=== PATIENT | female | born 1955 | race Caucasian/White ===

== ENCOUNTER → 2016-12-28 | Outpatient (CLI) | payer OTHER ==
--- NOTE | 2016-12-31 07:24 | MM ---
Reason for exam: screening (asymptomatic). Last mammogram was performed 2 years and 3 months ago. History: Patient is postmenopausal and is nulliparous. Benign excisional biopsy of the left breast, August 27, 2000. Excisional biopsy of the right breast. Took hormonal contraceptives for 11 years beginning at age 19. Physical Findings: A clinical breast exam by your physician is recommended on an annual basis and results should be correlated with mammographic findings. MG 3D Screening Mammo W/Cad Bilateral CC and MLO view(s) were taken. Prior study comparison: October 06, 2014, right breast MG diagnostic mammo RT w CAD. March 26, 2014, right breast MG work up mamm w CAD RT. The breast tissue is heterogeneously dense. This may lower the sensitivity of mammography. Finding: There is a questionable 16 mm equal density (isodense), lobulated mass located 3 cm from the nipple in the 12 o'clock position of the left breast. New finding since October 06, 2014 and March 26, 2014. ASSESSMENT: Incomplete: need additional imaging evaluation, BI-RAD 0 RECOMMENDATION: Ultrasound of the left breast. [facility] will attempt to contact patient to return for ultrasound.
== END | disposition home or self-care (01) ==
LOC: RADMAMWWP 09:07
PROVIDERS: ATTEND Obstetrics & Gynecology
DX: Z12.31 Encounter for screening mammogram for malignant neoplasm of breast (principal)
CPT/HCPCS: 77063; G0202

== ENCOUNTER → 2017-01-10 | Outpatient (CLI) | payer OTHER ==
--- NOTE | 2017-01-10 12:15 | USB ---
Reason for exam: additional evaluation requested from abnormal screening. History: Patient is postmenopausal and is nulliparous. Benign excisional biopsy of the left breast, August 27, 2000. Excisional biopsy of the right breast. Took hormonal contraceptives for 11 years beginning at age 19. Physical Findings: Nurse did not find any significant physical abnormalities on exam. US Breast Workup Limited LT Left breast ultrasound demonstrates no cystic or solid lesion seen. Possible scar tissue at palpable consistent with previousl surgery. These results were verbally communicated with the patient and result sheet given to the patient on 01/10/17. ASSESSMENT: Probably benign, BI-RAD 3 RECOMMENDATION: Follow-up diagnostic mammogram and ultrasound of the left breast in 6 months.
== END | disposition home or self-care (01) ==
LOC: RADUSWWP 09:30
PROVIDERS: ATTEND Obstetrics & Gynecology
DX: R92.8 Other abnormal and inconclusive findings on diagnostic imaging of breast (principal)

== ENCOUNTER → 2017-08-19 | Outpatient (CLI) | payer OTHER ==
--- NOTE | 2017-08-19 10:32 | MM ---
Reason for exam: follow-up at short interval from prior study. Last mammogram was performed 8 months ago. History: Patient is postmenopausal and is nulliparous. Benign excisional biopsy of the left breast, August 27, 2000. Excisional biopsy of the right breast. Took hormonal contraceptives for 11 years beginning at age 19. Physical Findings: Nurse did not find any significant physical abnormalities on exam. MG 3D Diag Mammo W/Cad LT CC and MLO view(s) were taken of the left breast. Prior study comparison: December 28, 2016, bilateral MG 3d screening mammo w/cad. October 06, 2014, right breast MG diagnostic mammo RT w CAD. The breast tissue is heterogeneously dense. This may lower the sensitivity of mammography. There is no discrete abnormality including area of concern. Stable post operative distortion left breast. These results were verbally communicated with the patient and result sheet given to the patient on 08/19/17. ASSESSMENT: Incomplete: need additional imaging evaluation, BI-RAD 0 RECOMMENDATION: Ultrasound of the left breast.
--- NOTE | 2017-08-19 10:34 | USB ---
Reason for exam: follow-up at short interval from prior study. History: Patient is postmenopausal and is nulliparous. Benign excisional biopsy of the left breast, August 27, 2000. Excisional biopsy of the right breast. Took hormonal contraceptives for 11 years beginning at age 19. US Breast LT Left breast ultrasound includes all four quadrants, the retroareolar region and axilla. Finding demonstrates a 5 x 2 x 3mm oval lesion too small to characterize at 2 o'clock. These results were verbally communicated with the patient and result sheet given to the patient on 08/19/17. ASSESSMENT: Benign, BI-RAD 2 RECOMMENDATION: Return to routine screening mammogram schedule for both breasts. Back on schedule.
== END | disposition home or self-care (01) ==
LOC: RADMAMWWP 08:15
PROVIDERS: ATTEND Obstetrics & Gynecology
DX: R92.2 Inconclusive mammogram (principal); L98.9 Disorder of the skin and subcutaneous tissue, unspecified
CPT/HCPCS: 77065; 76641; G0279

== ENCOUNTER → 2018-04-29 | Outpatient (CLI) | payer OTHER ==
--- NOTE | 2018-05-01 09:16 | MM ---
Reason for exam: screening (asymptomatic). Last mammogram was performed 8 months ago. History: Patient is postmenopausal and is nulliparous. Benign excisional biopsy of the left breast, August 27, 2000. Excisional biopsy of the right breast. Took hormonal contraceptives for 11 years beginning at age 19. Physical Findings: A clinical breast exam by your physician is recommended on an annual basis and results should be correlated with mammographic findings. MG 3D Screening Mammo W/Cad Bilateral CC and MLO view(s) were taken. Prior study comparison: August 19, 2017, left breast MG 3d diag mammo w/cad LT. December 28, 2016, bilateral MG 3d screening mammo w/cad. The breast tissue is heterogeneously dense. This may lower the sensitivity of mammography. Stable calcifications. No significant changes when compared with prior studies. ASSESSMENT: Benign, BI-RAD 2 RECOMMENDATION: Routine screening mammogram of both breasts in 1 year.
== END | disposition home or self-care (01) ==
LOC: RADMAMWWP 10:04
PROVIDERS: ATTEND Obstetrics & Gynecology
DX: Z12.31 Encounter for screening mammogram for malignant neoplasm of breast (principal)
CPT/HCPCS: 77063; 77067

== ENCOUNTER → 2019-05-25 | Outpatient (CLI) | payer OTHER ==
--- NOTE | 2019-05-27 09:17 | MM ---
Reason for exam: screening (asymptomatic). Last mammogram was performed 1 year and 1 month ago. History: Patient is postmenopausal and is nulliparous. Benign excisional biopsy of the left breast, August 27, 2000. Excisional biopsy of the right breast. Took hormonal contraceptives for 11 years beginning at age 19. Physical Findings: A clinical breast exam by your physician is recommended on an annual basis and results should be correlated with mammographic findings. MG 3D Screening Mammo W/Cad Bilateral CC and MLO view(s) were taken. Prior study comparison: April 29, 2018, bilateral MG 3d screening mammo w/cad. August 19, 2017, left breast MG 3d diag mammo w/cad LT. There is chronic nodularity in the left breast inferiorly. Nodular asymmetric density lateral posterior left breast is more defined. Questionable subtle distortion 11-12 o'clock right breast. ASSESSMENT: Incomplete: need additional imaging evaluation, BI-RAD 0 RECOMMENDATION: Special view mammogram of both breasts. (3D) If lesion persists on supplemental views, image directed ultrasound is recommended. [facility] will attempt to contact patient to return for supplemental views and ultrasound if indicated.
== END | disposition home or self-care (01) ==
LOC: RADMAMWWP 13:47
PROVIDERS: ATTEND Obstetrics & Gynecology
DX: Z12.31 Encounter for screening mammogram for malignant neoplasm of breast (principal)
CPT/HCPCS: 77063; 77067

== ENCOUNTER → 2019-06-04 | Outpatient (CLI) | payer OTHER ==
--- NOTE | 2019-06-05 07:58 | MM ---
Reason for exam: additional evaluation requested from abnormal screening. Last mammogram was performed less than 1 month ago. History: Patient is postmenopausal and is nulliparous. Benign excisional biopsy of the left breast, August 27, 2000. Excisional biopsy of the right breast. Took hormonal contraceptives for 11 years beginning at age 19. Physical Findings: Nurse did not find any significant physical abnormalities on exam. MG 3D Work Up W/Cad FLACO Bilateral spot compression CC and LM view(s) were taken. Spot compression MLO view(s) were taken of the right breast. Prior study comparison: May 25, 2019, bilateral MG 3d screening mammo w/cad. April 29, 2018, bilateral MG 3d screening mammo w/cad. The breast tissue is heterogeneously dense. This may lower the sensitivity of mammography. Post excisional changes on the left retroareolar and likely also upper outer quadrant at posterior depth 12 o'clock, precautionary ultrasound. 6mm area of architectural distortion in right upper outer quadrant 6cm from nipple, persists on additional views. These results were verbally communicated with the patient and result sheet given to the patient on 06/04/19. ASSESSMENT: Incomplete: need additional imaging evaluation, BI-RAD 0 RECOMMENDATION: Ultrasound of both breasts. (both upper outer quadant)
--- NOTE | 2019-06-05 08:02 | USB ---
Reason for exam: additional evaluation requested from abnormal screening. History: Patient is postmenopausal and is nulliparous. Benign excisional biopsy of the left breast, August 27, 2000. Excisional biopsy of the right breast. Took hormonal contraceptives for 11 years beginning at age 19. US Breast Workup Limited FLACO Left limited breast ultrasound including focal area of concern, retroareolar and axilla demonstrates a 4 x 3mm echogenic area within duct at the posterior nipple, ultrasound biopsy recommended. Right limited breast ultrasound including focal area of concern, retroareolar and axilla demonstrates no cystic or solid lesion seen. On screening right 3D CC 46/80 on review there are two areas of distortion 1.6cm apart. Stereotactic core biopsy of more posterior recomended. ML diagnostic . These results were verbally communicated with the patient and result sheet given to the patient on 06/04/19. ASSESSMENT: Suspicious, BI-RAD 4 RECOMMENDATION: Ultrasound core biopsy of the left breast. Stereotactic core biopsy of the right breast. Called Dr. Lovett's office with mammographic findings and has scheduled an appointment for the patient for 06/11/19 at 4:[address] Caldwell. PRELIMINARY REPORT CALLED AND FAXED TO DR. CALDWELL ON 06/04/19.
== END | disposition home or self-care (01) ==
LOC: RADMAMWWP 08:46
PROVIDERS: ATTEND Obstetrics & Gynecology
DX: R92.8 Other abnormal and inconclusive findings on diagnostic imaging of breast (principal)
CPT/HCPCS: 77062; 77066

== ENCOUNTER → 2019-06-11 | Outpatient (CLI) | payer OTHER ==
[2019-06-11 17:04] VITALS: BP 165/97; PULSE 87; RESP 18; TEMP 98.3; BMI 28.8
--- NOTE | 2019-06-11 17:26 | P.GSHP ---
History of Present Illness H&P Date: 06/11/19 Chief Complaint: Abnormal mammogram and ultrasound Maria Eugenia is being seen in consultation today for Dr. Nieves Gonzales. This is for bilateral abnormal mammograms and an abnormal right breast ultrasound. A 64-year-old white female who presents for breast evaluation. She underwent a bilateral screening mammogram on [id number]. This was felt to be incomplete and bilateral diagnostic mammograms were recommended. Bilateral [place] [id number] and these were felt to be incomplete and bilateral ultrasounds were recommended. On ultrasound she was noted to have the following Right breast: Focal area of concern retroareolar and axilla demonstrated no cy stic or solid lesion. On review there were 2 areas of distortion 1.6 cm apart a stereotactic core biopsy of the more posterior lesion was recommended. It was felt that a 3-D stereo biopsy should be performed and this is scheduled at [facility] July 04. The left breast: 4 x 3 mm echogenic area within a duct at the posterior nipple ultrasound biopsy recommended this is scheduled for [facility] on the same date July 04. The patient does not feel anything of concern in her breast. She has no complaints of pain masses nipple discharge or skin changes. In 1991 an open biopsy was done of the right breast. This was benign. 2000 open biopsy of the left breast. 2003 left breast of left breast. All benign. Family History: father: Esophageal cancer Hormonal History: menarche: 13 G2Ab2, no children (tubal at 30) menopause: 43 BCP: 15 years hormones: none Surgical history: 1. Tubal ligation 2. Bunionectomy Medical history: 1.varicose veins Social History: smoke: none alcohol: wine daily drugs: none - Constitutional Constitutional: Denies chills, Denies fever - EENT Eyes: denies blurred vision, denies pain Ears: bilateral: tinnitus, deny: decreased hearing Ears, nose, mouth and throat: Denies headache, Denies sore throat - Breasts Breasts: bilateral: as per HPI - Cardiovascular Cardiovascular: Reports high blood pressure - Respiratory Respiratory: Denies cough, Denies 7 - Gastrointestinal Gastrointestinal: Denies abdominal pain, Denies diarrhea, Denies nausea, Denies vomiting - Genitourinary (Female) Genitourinary: Denies dysuria, Denies hematuria - Menstruation Menstruation: Reports postmenopausal - Musculoskeletal Comment: arthritis - Integumentary Integumentary: Denies pruritus, Denies rash - Neurological Neurological: Denies numbness, Denies weakness - Psychiatric Psychiatric: Denies anxiety, Denies depression - Endocrine Endocrine: Denies fatigue, Denies weight change - Hematologic/Lymphatic Comment: none - Allergic/Immunologic Allergic/Immunologic: Reports seasonal allergies Past Medical History History of Any Multi-Drug Resistant Organisms: None Reported Smoking Status: Former smoker Medications and Allergies Home Medications Medication Instructions Recorded Confirmed Type Cholecalciferol (Vitamin D3) 2,000 unit PO DAILY 06/11/19 06/11/19 History [Vitamin D3] Famotidine 40 mg PO DAILY 06/11/19 06/11/19 History Gabapentin [Neurontin] 300 mg PO TID 06/11/19 06/11/19 History Levothyroxine Sodium [Synthroid] 75 mcg PO DAILY 06/11/19 06/11/19 History Loratadine [Claritin] 10 mg PO DAILY 06/11/19 06/11/19 History Metoprolol Tartrate [Lopressor] 100 mg PO BID 06/11/19 06/11/19 History Milk Thistle 150 mg PO DAILY 06/11/19 06/11/19 History [place]-3 Fatty Acids [[place]-3] 1,000 mg PO DAILY 06/11/19 06/11/19 History Vitamin B Complex 1 each PO DAILY 06/11/19 06/11/19 History Vitamin E 1,000 unit PO DAILY 06/11/19 06/11/19 History traMADol HCL [Ultram] 50 mg PO Q4-6H 06/11/19 06/11/19 History Allergies Allergy/AdvReac Type Severity Reaction Status Date / Time No Known Allergies Allergy Verified 06/11/19 17:04 Surgical - Exam Vital Signs Temp Pulse Resp BP Pulse Ox 98.3 F 87 18 165/97 97 06/11/19 17:01 06/11/19 17:01 06/11/19 17:01 06/11/19 17:01 06/11/19 17:01 - General well developed, well nourished, no distress - Eyes normal ocular movement - ENT no hearing loss, no congestion - Neck no masses, trachea midline - Respiratory normal expansion, normal respiratory effort, clear to auscultation - Cardiovascular Rhythm: regular Heart Sounds: normal: S1, S2 - Abdomen normal bowel sounds Abdomen: soft, non tender, no guarding, no rigid, no rebound - Integumentary no rash - Neurologic no disoriented, no combative - Musculoskeletal normal gait - Psychiatric oriented to time, oriented to person, oriented to place, speech is normal, memory intact Breast examination: Right breast: Multiple positional exam no dominant masses or nodules of concern Right axilla: No adenopathy of concern Left breast: Well-healed scar from prior surgery no dominant masses or nodules of concern Left axilla: No adenopathy of concern Bra: 40DD ptosi grade2/3 Results Mammogram and ultrasound results reviewed Assessment and Plan Assessment: Impression: 1. Abnormal bilateral mammogram 2. Abnormal right breast ultrasound 3. Fibrocystic breast changes 4. Family history of cancer 5. varicose veins 6. HTN Plan 1. ultrasound core biopsy right breast 2. Stereotactic core biopsy left breast 1 possibly 2 spots 3. Medical management of medical conditions 4. Follow-up after core biopsies performed We discussed risks and benefits of the procedure. We've also discussed stopping in the aspirin and aspirin products vitamin E or mated 3 Fish oils. The patient understands and the procedure has been scheduled for the near future. Time 25 minutes, 50% discussion. CC: Dr. Gonzales
== END ==
LOC: WWCWWP 15:47
PROVIDERS: ATTEND Surgery
DX: Z53.9 Procedure and treatment not carried out, unspecified reason (principal)

== ENCOUNTER → 2019-07-10 | Outpatient (CLI) | payer OTHER ==
[2019-07-10 07:43] VITALS: BP 134/82; PULSE 66; RESP 18; TEMP 98
--- NOTE | 2019-07-10 09:10 | P.PN ---
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 She underwent a right breast stereotactic core biopsy of 2 areas and [id number]. She underwent an ultrasound-guided core biopsy of the left breast on the same day. The breast stereotactic core biopsy revealed in the 11 to 12 o'clock position in the posterior region ductal carcinoma in situ, intermediate interposition invasive ductal carcinoma. The radiograph was reviewed with Dr. Pierce and it is felt that the area of concern is between 1-2 cm in size. The left breast retroareolar core biopsy revealed atypical ductal hyperplasia. The patient has no complaints related to the biopsy procedure. The patient is here with her for discussion. Objective - Vital Signs Vital signs: Vital Signs Temp 98.0 F 07/10/19 07:38 Pulse 66 07/10/19 07:38 Resp 18 07/10/19 07:38 BP 134/82 07/10/19 07:38 Pulse Ox 97 07/10/19 07:38 Intake & Output 07/09/19 07/10/19 07/10/19 18:59 06:59 18:59 Weight 86.183 kg - Exam BMI 28.1 - Constitutional General appearance: Present: average body habitus - EENT Eyes: Present: EOMI ENT: Present: hearing grossly normal - Neck Neck: Present: normal ROM - Respiratory Respiratory: bilateral: CTA - Cardiovascular Rhythm: regular Heart sounds: normal: S1, S2 - Integumentary Integumentary Comment(s): Mild ecchymosis right breast at core biopsy site, no evidence of infection or hematoma Left breast core biopsy site no evidence of infection or hematoma - Musculoskeletal Musculoskeletal: Present: gait normal - Psychiatric Psychiatric: Present: A&O x's 3, appropriate affect, intact judgment & insight Assessment and Plan Assessment: Impression: 1. Right breast core biopsy of 2 sites stereotactic core biopsy posterior position ductal carcinoma in situ, anterior position invasive ductal carcinoma 2. Left breast core biopsy atypia retroareolar region 3. Family history father esophageal cancer 4. History of hypertension At had a long discussion with the patient and her regarding treatment options. The lesion in the right breast appears to be less than 2 cm in size and she would be a good candidate for a lumpectomy with radiation therapy. Options of mastectomy plus or minus reconstruction were also discussed. We have also discussed sentinel node biopsy and possible axillary node dissection. After discussion they wish to proceed with a lumpectomy, sentinel node biopsy, possible axillary node dissection. We have discussed using an onco plastic approach and most likely this will be done via an eccentric mastopexy. We discussed that there will be some asymmetry between the breasts. She will also need a left breast needle local excisional biopsy of the area of atypia. The right breast will have additional changes after radiation therapy and a symmetry procedure on the contralateral side would be delayed until this was don e. Plan: 1. Needle localization lumpectomy right breast with possible tissue transfer, sentinel node biopsy, possible axillary node dissection 2. Needle localization lumpectomy left breast area of atypia 3. Presentation of case at tumor board 4. Preoperative medical clearance Approximately 60 minutes spent in this encounter, greater than 50% planning and counseling. Cc: Dr. Piper
== END | disposition home or self-care (01) ==
LOC: WWCWWP 07:17
PROVIDERS: ATTEND Surgery
DX: Z53.9 Procedure and treatment not carried out, unspecified reason (principal)

== ENCOUNTER 2019-08-12 08:47 | Day surgery (SDC) | payer OTHER ==
[2019-08-06 11:00] VITALS: BMI 28.0
[~2019-08-12 08:47] MED LIST: DEXAMETHASONE SOD PHOSPHATE 10 MG/ML 1 ML VIAL IV ONE; HEPARIN SODIUM,PORCINE 5,000 UNIT/ML 1 ML VIAL SQ ONE; LACTATED RINGERS 1,000 ML IV SCH; LIDOCAINE 1% 20 ML VIAL (10MG/ML) FOR IV START INTRADERMA PRN; ONDANSETRON 4 MG/2 ML VIAL IVP ONE; Pre Op ABX Message 1 EACH MISC MISCELLANE ONE
[2019-08-12] MEDS ORDERED: LIDOCAINE 1% INJ 10MG/ML (20 ML MDV) SQ ONE ×2 (10:25→12:21)
[2019-08-12] MEDS ORDERED: HYDROmorphone (PF) 1 MG/ML ONE (11:34)
[2019-08-12] MEDS ORDERED: PROPOFOL 10 MG/ML 20 ML VIAL IV ONE (11:34)
[2019-08-12] MEDS ORDERED: LIDOCAINE 1% INJ 10MG/ML (20 ML MDV) ONE (11:34)
[2019-08-12] MEDS ORDERED: SUCCINYLCHOLINE CHLORIDE 100 MG/5 ML SYR IV ONE (11:34)
[2019-08-12] MEDS ORDERED: MIDAZOLAM 2 MG/2 ML VIAL ONE (11:34)
[2019-08-12] MEDS ORDERED: ePHEDrine SULFATE/0.9% NACL/PF 50 MG/5 ML SYRINGE IV ONE (11:34)
[2019-08-12] MEDS ORDERED: fentaNYL (PF) 50 MCG/ML 2 ML AMP ONE (11:34)
[2019-08-12] MEDS ORDERED: SODIUM CHLORIDE 0.9% 100 ML with ceFAZolin 2,000 MG IV ONE ×2 (12:01)
[2019-08-12] MEDS ORDERED: LACTATED RINGERS 1,000 ML IV ONE (13:08)
--- NOTE | 2019-08-12 14:23 | MM ---
EXAMINATION TYPE: MG pre op needle loc LT DATE OF EXAM: 08/12/2019 COMPARISON: Mammogram 07/02/2019 CLINICAL HISTORY: DCIS and invasive carcinoma right breast, atypical biopsy results left breast TECHNIQUE: Needle localization with wire placement and surgical excision of area of concern of the bilateral breasts FINDINGS: The procedure of needle localization with wire placement and than surgical excision was explained to the patient. Benefits, alternatives, and risks were discussed. An informed consent was then obtained. A timeout was performed. The shortest pathway for procedure was chosen. Shortest pathway was lateral approach. The overlying skin was prepped in usual sterile fashion. 1% Lidocaine was used as anesthetic into the skin and subcutaneous tissue up to the level of area of concern. A 7 cm needle was used. It was placed via a lateral approach under mammographic guidance. Subsequent 90 degrees mammogram show the needle to be in satisfactory position relative to the targeted area. At this point, wire was placed and the needle was withdrawn. The wire was fixed to patient's skin. Images were marked for surgeon. The shortest pathway for procedure was chosen. Shortest pathway was lateral approach. The overlying skin was prepped in usual sterile fashion. 1% Lidocaine was used as anesthetic into the skin and subcutaneous tissue up to the level of areas of concern. A 7 cm needle was used for the more anterior inferior marker and 9 cm needle was used for the more posterior superior marker. These were placed via a lateral approach under mammographic guidance. Subsequent 90 degrees mammogram show the needles to be in satisfactory position relative to the targeted areas. At this point, wire was placed and the needles were withdrawn. The wires were fixed to patient's skin. Images were marked for surgeon. Images were reviewed with the surgeon prior to surgery in person. The patient subsequently had sentinel node injection. The patient tolerated the procedures well without any immediate complication. The patient was taken to presurgical holding and then to surgery for surgical excision. Specimen: Left breast specimen is obtained. The surgical wire and clip are within the specimen. Specimen: Right breast specimen is obtained. Surgical wires and clips are within the specimen. IMPRESSION: 1. Surgical biopsy left breast. 2. Lumpectomy, 2 sites right breast. Recommendations: 1. Recommendations are pending pathology results. Pathology Results: Malignant A. RIGHT BREAST/AXILLA, SENTINEL LYMPH NODE, BIOPSY: One lymph node negative for metastatic adenocarcinoma. Node is examined by routine H+E as well as appropriately controlled immunohistochemical stains for cytokeratin 7 and epithelial membrane antigen. B. RIGHT BREAST/AXILLA LYMPH NODE, "LYMPH NODE DISSECTION": Benign fibroadipose tissue, negative for lymph node. C. RIGHT BREAST TISSUE, BIOPSY: Fibrocystic spectrum changes and sclerosing adenosis. Negative for invasive or in situ adenocarcinoma. D. RIGHT BREAST MASS, NEEDLE LOCALIZATION MAMMOGRAPHICALLY ORIENTED LUMPECTOMY: Focal infiltrating moderately differentiated adenocarcinoma about 3 mm in greatest dimension and Grade 2 duct carcinoma in situ with focal comedo form necrosis measuring about 15 x 9 x 6 mm. Black inked superior margin is about 1 mm away from DCIS, other margins - negative for involvement by adenocarcinoma, see note. E. LEFT BREAST, MAMMOGRAPHICALLY ORIENTED BIOPSY: Focal atypical duct hyperplasia. Lesion does not contact inked margins. Recommendation Surgical consult MTDD
--- NOTE | 2019-08-12 14:25 | NM ---
EXAMINATION TYPE: NM sentinel node injection DATE OF EXAM: 08/12/2019 COMPARISON: NONE INDICATION: Abnormal mammogram. Informed consent was obtained. A timeout was performed. The area around the right nipple was cleansed with alcohol. In single subdermal injection, a total o f 515 uCi Technetium 99m Lymphoseek was injected. The patient tolerated the procedure very well. IMPRESSIONS: 1. Successful injection for sentinel node evaluation.
--- NOTE | 2019-08-12 14:58 | P.NAPBC ---
NAPBC Queries - NAPBC Queries Was patient's case review presented at [facility] tumor board? If no, comment.: Yes Was patient's pathology reviewed at [facility]? If no, comment.: Yes Was breast conservation surgery offered? If no, comment.: Yes Was sentinel node biopsy offered? If no, comment.: Yes Was diagnosis confirmed by percutaneous core biopsy? If no, comment.: Yes Is patient mastectomy patient?: No Was a preop referral to reconstructive surgeon offered?: No (not a mastectomy patient) Clinical Stage: stage 1A
--- NOTE | 2019-08-12 15:12 | P.OP ---
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, and the second area invasive ductal carcinoma Postoperative Diagnosis: same Procedure(s) Performed: Left breast needle local excisional biopsy Right breast sentinel node biopsy Right breast needle local times two lumpectomy via donut mastopexy with adjacent tissue transfer Anesthesia: ANGEL Surgeon: Clarissa Caldwell Estimated Blood Loss (ml): 5 IV fluids (ml): 1,000 Pathology: other (breast tissue right and left breast, sentinal node biopsy) Condition: stable Disposition: same day Indications for Procedure: Left breast core biopsy atypia, right breast core biopsy 2 DCIS and invasive ductal carcinoma Operative Findings: Dense breast tissue Description of Procedure: the patient is a 64-year-old white female who Mammographic evaluation of the breast was noted to have an area in both rest which required biopsy. In the left breast core biopsy revealed atypia. In the right breast 2 areas of concern were identified when revealed ductal carcinoma in situ and the second invasive ductal carcinoma. The 2 areas in the right breast with approximately 1.6 cm apart. Patient was given risks and benefits of surgery and chose to have a right lumpectomy via donor mastopexy and a left needle local excisional biopsy. The patient was taken to the operating room following needle localization of the areas of concern in each breast. Additionally radioactive substance was injected in the right periareolar area such that the sentinel node biopsy could be performed on the right. In the operative suite and induction of general anesthesia was initiated. Following this the neoprobe was utilized to assure the radioactivity had been transmitted to the right axilla. This was identified. The breast and the right axilla were prepped and draped in a sterile fashion. The left breast was approached initially. A periareolar incision was made and carried down to the shaft of the needle and surrounding tissue was excised. The specimen was inked for orientation. Radiograph revealed the area of concern had been removed. The deep tissues were closed with 3-0 Vicryl suture. The skin was closed with 4-0 Monocryl. The right breast and axilla were then approached. The right axilla was noted to have an area of increased radioactivity at the medial aspect of the axilla. An incision was made and carried down to the axillary tissue. Using the Allis clamp the area of greatest activity was grasped. Using the harmonic scalpel dissection was performed around this. The neoprobe was used to test for radioactivity and the 10 second count of this lymph node was 4828. The 10 second background count was 36. The wound was examined for hemostasis. After assured that hemostasis was attained the deep tissues were closed with 3-0 Vicryl suture. The lymph node was felt to be in the level I area of dissection. The skin was closed using 4-0 Monocryl. Steri-Strips were applied. The area of the right breast was then approached. A donut mastopexy circumareolar ramesh was placed. A second eccentric surgical ramesh was placed outside of this [place]. The distance from the periareolar edge to the outer [place] was approximately 1 cm except at the superiormost aspect it was 1.8 cm. This tissue was de-epithelialized. Following this the breast parenchyma was entered at the superior lateral aspect of the incision. The breast tissue was dissected free in the plane between the subcutaneous tissue and the breast tissue. This was dissected to the area of the clavicle superior and to the chest wall medially and laterally. The wires which had both been inserted laterally were identified. The tissue between these wires was excised using sharp dissection. Posteriorly excision was carried down to the pectoralis major muscle. The specimen was painted for orientation. Radiograph of the specimen revealed the area of concern had been removed. The cavity was marked using titanium clips. Tissue mobilization both medially and laterally was performed posteriorly on the pectoralis major muscle. The area of most mobilization was approximately 80 cm squared medially and 80 cm squared laterally. This was a total of 160 cm squared which was mobilized. The deep tissues were closed in the midline using a Vicryl suture. Following this a 5-0 [place] pursestring suture was placed around the outer [place]. This was tightened to the correct size. It was a diameter of approximately 5.5 cm. [place] sutures of 5-0 [place]- [place] were placed between the outer and inner [place]. This was followed by a running 4-0 Monocryl subcuticular suture. A 4-0 nylon skin suture was then placed. At the end of the case approximately 20 mL of 1% lidocaine were injected 10 at the periareolar incision in the right breast, 5 in the axillary incision, and 5 in the left breast incision. A new needle and syringe was used to inject the left breast site. The patient tolerated the procedure in stable condition. All instrument and sponge counts were correct at the end of the case.
[2019-08-12 15:15] VITALS: TEMP 97.1
--- NOTE | 2019-08-12 15:19 | P.DS ---
Providers Attending physician: Clarissa Caldwell Primary care physician: Nieves Gonzales Plan - Discharge Summary Discharge Rx Participant: No New Discharge Prescriptions: No Action traMADol HCL [Ultram] 50 mg PO Q4-6H Metoprolol Tartrate [Lopressor] 100 mg PO BID Loratadine [Claritin] 10 mg PO DAILY Levothyroxine Sodium [Synthroid] 75 mcg PO DAILY Gabapentin [Neurontin] 300 mg PO TID Famotidine 40 mg PO DAILY Vitamin E 1,000 unit PO DAILY Vitamin B Complex 1 each PO DAILY [place]-3 Fatty Acids [[place]-3] 1,000 mg PO DAILY Milk Thistle 150 mg PO DAILY Cholecalciferol (Vitamin D3) [Vitamin D3] 2,000 unit PO DAILY Discharge Medication List Cholecalciferol (Vitamin D3) [Vitamin D3] 2,000 unit PO DAILY 06/11/19 [History] Famotidine 40 mg PO DAILY 06/11/19 [History] Gabapentin [Neurontin] 300 mg PO TID 06/11/19 [History] Levothyroxine Sodium [Synthroid] 75 mcg PO DAILY 06/11/19 [History] Loratadine [Claritin] 10 mg PO DAILY 06/11/19 [History] Metoprolol Tartrate [Lopressor] 100 mg PO BID 06/11/19 [History] Milk Thistle 150 mg PO DAILY 06/11/19 [History] [place]-3 Fatty Acids [[place]-3] 1,000 mg PO DAILY 06/11/19 [History] Vitamin B Complex 1 each PO DAILY 06/11/19 [History] Vitamin E 1,000 unit PO DAILY 06/11/19 [History] traMADol HCL [Ultram] 50 mg PO Q4-6H 06/11/19 [History] Follow up Appointment(s)/Referral(s): Clarissa Caldwell MD [STAFF PHYSICIAN] - 1 Week Activity/Diet/Wound Care/Special Instructions: do not drive for 24 hours after discharge or if taking any narcotic pain medication may shower after 48 hours Wear bra at all times Discharge Disposition: HOME SELF-CARE
[2019-08-12 15:22] VITALS: RESP 16
[2019-08-12] MEDS: HYDROmorphone 0.5 MG/0.5 ML SYRINGE IVP PRN ×2 (15:49→15:55)
[2019-08-12 16:41] VITALS: BP 140/74; PULSE 79
== END 2019-08-12 17:24 | disposition home or self-care (01) ==
LOC: OR 08:47
PROVIDERS: ATTEND Surgery
DX: C50.911 Malignant neoplasm of unspecified site of right female breast (principal); Z79.891 Long term (current) use of opiate analgesic; Z79.899 Other long term (current) drug therapy; Z79.890 Hormone replacement therapy; Z91.048 Other nonmedicinal substance allergy status; Z88.8 Allergy status to other drugs, medicaments and biological substances; I10 Essential (primary) hypertension; K21.9 Gastro-esophageal reflux disease without esophagitis
CPT/HCPCS: 19281; 19282; 88342; 88307; 88341; 76098 ×2; 38792; A9520; J2250; J1644; J1100; J2405; J0690; J2001; J3010; J1170 ×2; J0330; J2704

== ENCOUNTER → 2019-08-27 | Outpatient (CLI) | payer OTHER ==
[2019-08-27 16:31] VITALS: BP 154/93; PULSE 81; RESP 16; TEMP 98.4
--- NOTE | 2019-08-27 16:47 | P.PN ---
Subjective Progress Note Date: 08/27/19 Principal diagnosis: right breast STAGE 1 A, left breast atypia Maria Eugenia is a 64-year-old white female status post right breast lumpectomy and sentinel node biopsy and left breast excisional biopsy the right breast had a small focus of invasive ductal carcinoma 3 millimeters as well as DCIS. The margins were negative although the DCIS was closes to the superior margin, less than 1 mm. The patient has no complaints postoperatively. Objective - Vital Signs Vital signs: Vital Signs Temp 98.4 F 08/27/19 16:27 Pulse 81 08/27/19 16:27 Resp 16 08/27/19 16:27 BP 154/93 08/27/19 16:27 Pulse Ox 99 08/27/19 16:27 Intake & Output 08/26/19 08/27/19 08/27/19 18:59 06:59 18:59 Weight 87.09 kg - Constitutional General appearance: Present: average body habitus - EENT Eyes: Present: EOMI ENT: Present: hearing grossly normal - Respiratory Respiratory: bilateral: CTA - Cardiovascular Rhythm: regular Heart sounds: normal: S1, S2 - Integumentary Integumentary Comment(s): Reason left breast: Clean and dry no evidence of infection Incisions right breast and axilla clean and dry sutures to be removed Assessment and Plan Assessment: Impression:: Patient status post excisional biopsy left breast, right breast lumpectomy and sentinel node biopsy Pathology revealed a 3 mm focus of infiltrating ductal carcinoma in the right breast with DCIS margin close at less than 1 mm superiorly no tumor on ink Left breast focal atypical ductal hyperplasia lesion does not contact inked margins The patient is going to follow with medical and radiation oncology. Sutures to be removed. She will follow her in 3 months. Time with Patient: Less than 30
== END | disposition home or self-care (01) ==
LOC: WWCWWP 16:10
PROVIDERS: ATTEND Surgery
DX: Z53.9 Procedure and treatment not carried out, unspecified reason (principal)

== ENCOUNTER → 2019-09-28 | Outpatient (CLI) | payer OTHER ==
--- NOTE | 2019-09-28 14:48 | CT ---
EXAMINATION TYPE: CT chest wo con DATE OF EXAM: 09/28/2019 COMPARISON: NONE HISTORY: Cough and right sided chest pain. History of right sided breast cancer. CT DLP: 294.3 mGycm. Automated Exposure Control for Dose Reduction was Utilized. TECHNIQUE: CT scan of the thorax is performed without IV contrast. FINDINGS: LUNGS: Mild biapical pleural/parenchymal scarring. Focal curvilinear and lobulated consolidation in t he right lower lobe posteriorly just above the diaphragm extending superiorly. There is additional li near scarring and atelectasis in both bases just above diaphragm. No concerning nodules or masses. No pleural effusion or pneumothorax. Mild central peribronchial wall thickening bilaterally. MEDIASTINUM: Lack of IV contrast is noted to limit evaluation for mediastinal and especially hilar ad enopathy. There are no definitive greater than 1 cm hilar or mediastinal lymph nodes. No cardiomega ly or pericardial effusion is seen. Ascending aorta measures up to 3.5 cm diameter image 27. OTHER: Small hiatal hernia is present. Surgical clips right breast from prior lumpectomy seen central ly. Additional scarring towards the right axilla is present. IMPRESSION: Focal curvilinear lobulated consolidation posterior aspect right lower lobe mid to basila r aspect could reflect focal pneumonia in appropriate clinical setting, correlate clinically.
== END | disposition home or self-care (01) ==
LOC: RADCTMAIN 14:22
PROVIDERS: ATTEND Radiology Radiation Oncology
DX: C50.411 Malignant neoplasm of upper-outer quadrant of right female breast (principal); F17.210 Nicotine dependence, cigarettes, uncomplicated; R05 Cough
CPT/HCPCS: 71250

== ENCOUNTER → 2019-10-07 | Outpatient (CLI) | payer OTHER ==
--- NOTE | 2019-10-07 12:03 | BD ---
EXAMINATION TYPE: Axial Bone Density DATE OF EXAM: 10/07/2019 COMPARISON: 09/10/2012 CLINICAL HISTORY: Z 79.890 Height: 67.75 Weight: 195 FRAX RISK QUESTIONS: Alcohol (3 or more units per day): no Family History (Parent hip fracture): Glucocorticoids (More than 3mos): no (Ex: prednisone, prednisolone, methylprednisolone, dexamethasone, and hydrocortisone). History of Fracture in Adulthood: yes Secondary Osteoporosis: 1. Type 1 Diabetes: no 2. Hyperthyroidism: no 3. Menopause before 45: no 4. Malnutrition: no 5. Chronic liver disease: no Rheumatoid Arthritis: no Current Tobacco Use: no RISK FACTORS HISTORY OF: Family History of Osteoporosis: yes Active: yes Diet low in dairy products/other sources of calcium: at least one serving a day Postmenopausal woman: yes Take estrogen and/or progesterone medications: not now How long: hormonal contraceptives age 19-30 Lost more than 2 inches in height since high school: no Frequent falls: no Poor Health: no Hyperparathyroidism: no Adrenal Insufficiency: no MEDICATIONS: Prednisone or other steroids: no Thyroid Medications: yes Which medication: Levothyroxine How Long: over 10 years Osteoporosis Medications: no Additional Medications: calcium, blood pressure med Additional History: recent breast CA/radiation EXAM MEASUREMENTS: Bone mineral densitometry was performed using the [employer]. Bone mineral density as measured about the Lumbar spine is: ----- L1-L4(G/cm2): 1.076 T Score Values are as follows: ----- L2: -1.4 ----- L3: -0.9 ----- L4: 0.3 ----- L1-L4: -0.9 Bone mineral density has: Increased 3.3% since study of: 09/10/2012 Bone mineral density about the R hip (g/cm2): 0.852 Bone mineral density about the L hip (g/cm2): 0.845 T Score values are as follows: -----R Neck: -1.3 -----L Neck: -1.4 -----R Total: -1.1 -----L Total: -0.9 Bone mineral density has: Decreased -4.9% since study of: 09/10/2012 IMPRESSION: Osteopenia (T Score between -2.5 and -1). There is slightly increased risk of fracture and the patient may be considered for treatment. Re-Screen 2-5 years. NOTE: T-SCORE=SD OF THE YOUNG ADULT MEAN.
== END | disposition home or self-care (01) ==
LOC: RADBDWWP 09:43
PROVIDERS: ATTEND Internal Medicine Hematology & Oncology
DX: M85.80 Other specified disorders of bone density and structure, unspecified site (principal); N95.1 Menopausal and female climacteric states; Z79.890 Hormone replacement therapy
CPT/HCPCS: 77080

== ENCOUNTER → 2019-12-03 | Outpatient (CLI) | payer OTHER ==
[2019-12-03 08:58] VITALS: BP 140/81; PULSE 77; TEMP 98.8
--- NOTE | 2019-12-03 09:12 | P.PN ---
Subjective Progress Note Date: 12/03/19 Principal diagnosis: right breast Stage 1A [id number]- Victorina is a 64-year-old white female status post right breast lumpectomy and sentinel node biopsy done 08/12/2019. She also had a left breast biopsy which revealed focal atypical ductal hyperplasia. She finished her radiation treatment on October 14. She also saw a medical oncologist and is now on Anestrazole. She has had no side effects. She is not complaining of any hot flashes or bony aches. Family history: Father: Esophageal cancer Hormonal history: Menarche: 13 Chief to Ab2, no children, tubal ligation at 30 Menopause: 43 control pills: 15 years Hormones: None Surgical history: 1. Tubal ligation 2. Bunionectomy 3. Right breast lumpectomy and sentinel node biopsy, left breast biopsy Medical history: 1. Varicose veins Social history: Smoke: Negative Alcohol: Wine daily Drugs: Negative Review of systems: Constitutional: Negative HEENT: Negative Ears: Tinnitus Cardiovascular: Hypertension Respiratory: Negative GI: Negative : Status post tubal ligation Musculoskeletal: Arthritis Neurologic: Negative Psychiatric: Negative Objective - Constitutional General appearance: Present: average body habitus - EENT Eyes: Present: EOMI ENT: Present: hearing grossly normal - Neck Neck: Present: normal ROM - Respiratory Respiratory: bilateral: CTA - Cardiovascular Rhythm: regular Heart sounds: normal: S1, S2 - Gastrointestinal General gastrointestinal: Present: normal bowel sounds, soft - Integumentary Integumentary: Present: normal turgor - Musculoskeletal Musculoskeletal: Present: gait normal - Psychiatric Psychiatric: Present: A&O x's 3, appropriate affect - Additional findings Additional findings: breast exam: inspection: well healed scars from prior surgery Palpation: Right breast: Well-healed scar from prior surgery, no evidence of recurrence or infection on multiple positional exam postop changes otherwise no dominant masses or nodules of concern no lesions of concern Right axilla: Well-healed scar from sentinel node biopsy no adenopathy of concern Left breast: Well-healed scar from prior biopsy no dominant masses or nodules of concern Left axilla: No adenopathy of concern Assessment and Plan Assessment: Impression: 1. Patient status post right breast lumpectomy and sentinel node biopsy in July 2019 for a stage IA right breast cancer there was a focus of microinvasion less than 1 mm from the superior margin and the patient did receive additional radiation secondary to this 2. Patient is presently on anastrozole with no side effects 3. Patient with no complaints Plan: 1. Bilateral mammogram in 6 months with physician exam at that time 2. Continue anastrozole CC: Dr. Gonzales encounter 15 minutes > 50% of time in planning and counselling Time with Patient: Less than 30
== END | disposition home or self-care (01) ==
LOC: WWCWWP 08:37
PROVIDERS: ATTEND Surgery
DX: Z53.9 Procedure and treatment not carried out, unspecified reason (principal)

== ENCOUNTER → 2019-12-14 | Outpatient (CLI) | payer OTHER ==
--- NOTE | 2019-12-14 09:56 | CT ---
EXAMINATION TYPE: CT chest wo con DATE OF EXAM: 12/14/2019 COMPARISON: Follow-up chest CT November 28, 2019. HISTORY: Cough. Follow up for fluid in lung per patient. Prior abnormal CT. History of breast cancer. CT DLP: 303.3 mGycm. Automated Exposure Control for Dose Reduction was Utilized. TECHNIQUE: CT scan of the thorax is performed without IV contrast. FINDINGS: LUNGS: Mild to minimal biapical pleural/parenchymal scarring redemonstrated. Focal curvilinear and lo bulated consolidation in the right lower lobe posteriorly just above the diaphragm extending superior ly shows interval improvement but incomplete resolution. In addition there is new peripheral consolid ation with air bronchograms involving the anterior aspect of the right upper lobe for reference sagit jessica image 25. Slight right-sided volume loss is still present. There is persistent mild linear scarri ng and/or atelectasis in both bases just above diaphragm redemonstrated. No concerning new nodules or masses. No pleural effusion or pneumothorax is appreciated bilaterally. Mild central peribronchial w all thickening bilaterally remains present. MEDIASTINUM: Lack of IV contrast is noted to limit evaluation for mediastinal and especially hilar ad enopathy. There are no definitive new greater than 1 cm hilar or mediastinal lymph nodes. No cardio megaly or pericardial effusion is seen. OTHER: Stable small size hiatal hernia. Surgical clips from right breast lumpectomy redemonstrated. E xaggerated thoracic kyphosis. IMPRESSION: Interval improvement but incomplete resolution of posterior right basilar consolidation a nd/or atelectasis. New anterior right upper lung consolidation. Cannot exclude pneumonia or infectiou s etiology but suspect may be related to right breast radiation treatment. Correlate clinically.
== END | disposition home or self-care (01) ==
LOC: RADCTMAIN 09:14
PROVIDERS: ATTEND Radiology Radiation Oncology
DX: J18.1 Lobar pneumonia, unspecified organism (principal); C50.411 Malignant neoplasm of upper-outer quadrant of right female breast; Z98.890 Other specified postprocedural states; F17.210 Nicotine dependence, cigarettes, uncomplicated
CPT/HCPCS: 71250

== ENCOUNTER → 2020-03-08 | Outpatient (CLI) | payer MEDICARE ==
--- NOTE | 2020-03-08 10:32 | MM ---
Reason for exam: additional evaluation requested from prior study. Last mammogram was performed 9 months ago. History: Patient is postmenopausal, has history of breast cancer at age 64, and is nulliparous. Malignant MG pre op loc each addl RT of the right breast, August 12, 2019. Malignant MG pre op needle loc LT of the left breast, August 12, 2019. Lumpectomy of the right breast, August 12, 2019. Benign excisional biopsy of the left breast, August 27, 2000. Excisional biopsy of the right breast. Took hormonal contraceptives for 11 years beginning at age 19. Taking antineoplastic beginning at age 64. Physical Findings: Nurse did not find any significant physical abnormalities on exam. MG 3D Diag Mammo W/Cad FLACO Bilateral CC and MLO view(s) were taken. Prior study comparison: June 04, 2019, bilateral MG 3d work up w/cad FLACO. May 25, 2019, bilateral MG 3d screening mammo w/cad. The breast tissue is heterogeneously dense. This may lower the sensitivity of mammography. Benign appearing calcifications in the left breast. Post operative changes on the right breast. These results were verbally communicated with the patient and result sheet given to the patient on 03/08/20. ASSESSMENT: Benign, BI-RAD 2 RECOMMENDATION: Follow-up diagnostic mammogram of both breasts in 1 year.
== END | disposition home or self-care (01) ==
LOC: RADMAMWWP 09:30
PROVIDERS: ATTEND Surgery
DX: Z08 Encounter for follow-up examination after completed treatment for malignant neoplasm (principal); Z85.3 Personal history of malignant neoplasm of breast
CPT/HCPCS: 77066; G0279; 77062

== ENCOUNTER → 2020-03-18 | Outpatient (CLI) | payer MEDICARE, OTHER ==
[2020-03-18 09:14] VITALS: BP 154/88; PULSE 63; RESP 20; TEMP 98.9
--- NOTE | 2020-03-18 09:50 | P.PN ---
Subjective Progress Note Date: 03/18/20 Principal diagnosis: Stage IA right breast cancer Victorina is a 64-year-old white female status post right breast lumpectomy and sentinel node biopsy done 08/12/2019. She also had a left breast biopsy which revealed focal atypical ductal hyperplasia. She finished her radiation treatment on October 14. She also saw a medical oncologist and is now on Anestrazole. She has had no side effects. She is not complaining of any hot flashes or bony aches. She had a bilateral mammogram performed on this was benign BIRADS 2. Of importance is the fact of 2019 she underwent a CAT scan of the chest which revealed incomplete resolution of posterior basilar consolidation and/or atelectasis. The anterior upper lung consolidation. Could not exclude pneumonia or infectious etiology but suspect it may be related to her breast radiation treatment and correlation clinically was recommended. Dr. Calderon from radiation oncology is following this, I have spoken to him and at this time he is not recommending another computed tomography scan Follow-up. He will be the one to the order any additional radiographs. The patient is not complaining of any lumps masses or nodules in her breast. She is not complaining of any nipple discharge or skin changes. The patient does have asymmetry of her breast secondary to the treatment of the right breast cancer. The size discrepancy makes it difficult to find close to fit well. Additionally the patient has shoulder notching and back pain related to the large size of the left breast. Family history: Father: Esophageal cancer Hormonal history: Menarche: 13 G2 Ab2, no children, tubal ligation at 30 Menopause: 43 control pills: 15 years Hormones: None Surgical history: 1. Tubal ligation 2. Bunionectomy 3. Right breast lumpectomy and sentinel node biopsy, left breast biopsy Medical history: 1. Varicose veins Social history: Smoke: Negative Alcohol: Wine daily Drugs: Negative Review of systems: Constitutional: Negative HEENT: Negative Ears: Tinnitus Cardiovascular: Hypertension Respiratory: Negative GI: Negative : Status post tubal ligation Musculoskeletal: Arthritis Neurologic: Negative Psychiatric: Negative Objective - Vital Signs Vital signs: Vital Signs Temp 98.9 F 03/18/20 09:11 Pulse 63 03/18/20 09:11 Resp 20 03/18/20 09:11 BP 154/88 03/18/20 09:11 Pulse Ox 97 03/18/20 09:11 Intake & Output 03/17/20 03/18/20 03/18/20 18:59 06:59 18:59 Weight 86.183 kg - Exam BMI 28.9 - Constitutional General appearance: Present: average body habitus - EENT Eyes: Present: EOMI ENT: Present: hearing grossly normal - Neck Neck: Present: normal ROM - Respiratory Respiratory: bilateral: CTA - Cardiovascular Rhythm: regular Heart sounds: normal: S1, S2 - Gastrointestinal General gastrointestinal: Present: normal bowel sounds, soft - Integumentary Integumentary Comment(s): Shoulder notching on the left related to the large size of the left breast Integumentary: Present: normal turgor - Musculoskeletal Musculoskeletal: Present: gait normal - Psychiatric Psychiatric: Present: A&O x's 3, appropriate affect, intact judgment & insight - Additional findings Additional findings: Breast exam: BRA 38DD inspection: right breast ptosis grade 1, left breast ptosis 2/3 Palpation Right breast: Changes related to prior surgery, scar well-healed, multiple positional exam no dominant masses or nodules of concern Right axilla: No adenopathy of concern Left breast: Multiple positional exam no dominant masses or nodules of concern, fibrocystic changes Left axilla: No adenopathy of concern Assessment and Plan Assessment: Impression: 1. Patient status post right breast lumpectomy sentinel node biopsy for stage I a breast cancer, she has no evidence of recurrent cancer 2. Patient has asymmetry of the breasts secondary to her right breast treatment the asymmetry is symptomatic for the patient 3. High cholesterol 4. Varicose veins Plan: 1. Continue close surveillance of the right breast to ensure no recurrence of cancer 2. Continue to follow with radiation and medical oncology 3. We have discussed asymmetry procedure for the left breast. The left nipple areolar complexes approximately 2 cm lower on the left than on the right. We've discussed a crescent mastopexy however this would not change the size of the breast versus a [place] pattern reduction mastopexy. The patient at this time is considering a [place] pattern reduction mastopexy. We have drawn the lines for which surgery would be performed she understands this and she is going to consider this. Patient will follow up in 3 months to discuss this. Cc: Dr. Gonzales encounter 25 minutes, > 50 % of time in planning and counselling
== END | disposition home or self-care (01) ==
LOC: WWCWWP 09:01
PROVIDERS: ATTEND Surgery
DX: Z53.9 Procedure and treatment not carried out, unspecified reason (principal)

== ENCOUNTER → 2020-06-09 | Outpatient (CLI) | payer MEDICARE ==
[2020-06-09 12:47] VITALS: BP 146/92; PULSE 68; RESP 18; TEMP 98.6
--- NOTE | 2020-06-09 13:46 | P.PN ---
Subjective Progress Note Date: 06/09/20 Principal diagnosis: Asymmetry of the breast related to prior right breast lumpectomy/radiation therapy for stage IA invasive ductal carcinoma Stage IA right breast cancer Victorina is a 64-year-old white female status post right breast lumpectomy and sentinel node biopsy done 08/12/2019. She also had a left breast biopsy which revealed focal atypical ductal hyperplasia. She finished her radiation treatment on October 14. She also saw a medical oncologist and is now on A nestrazole. She has had no side effects. She is not complaining of any hot flashes or bony aches. She had a bilateral mammogram performed on this was benign BIRADS 2. Of importance is the fact of 2019 she underwent a CAT scan of the chest which revealed incomplete resolution of posterior basilar consolidation and/or atelectasis. The anterior upper lung consolidation. Could not exclude pneumonia or infectious etiology but suspect it may be related to her breast radiation treatment and correlation clinically was recommended. Dr. Calderon from radiation oncology is following this, I have spoken to him and at this time he is not recommending another computed tomography scan Follow-up. He will be the one to the order any additional radiographs. The patient is not complaining of any lumps masses or nodules in her breast. She is not complaining of any nipple discharge or skin changes. The patient does have asymmetry of her breast secondary to the treatment of the right breast cancer. The size discrepancy makes it difficult to find close to fit well. Additionally the patient has shoulder notching and back pain related to the large size of the left breast. Family history: Father: Esophageal cancer Hormonal history: Menarche: 13 G2 Ab2, no children, tubal ligation at 30 Menopause: 43 control pills: 15 years Hormones: None Surgical history: 1. Tubal ligation 2. Bunionectomy 3. Right breast lumpectomy and sentinel node biopsy, left breast biopsy Medical history: 1. Varicose veins Social history: Smoke: Negative Alcohol: Wine daily Drugs: Negative Review of systems: Constitutional: Negative HEENT: Negative Ears: Tinnitus Cardiovascular: Hypertension Respiratory: Negative GI: Negative : Status post tubal ligation Musculoskeletal: Arthritis Neurologic: Negative Psychiatric: Negative Objective - Vital Signs Vital signs: Vital Signs Temp 98.6 F 06/09/20 12:43 Pulse 68 06/09/20 12:43 Resp 18 06/09/20 12:43 BP 146/92 06/09/20 12:43 Pulse Ox 97 06/09/20 12:43 Intake & Output 06/08/20 06/09/20 06/09/20 18:59 06:59 18:59 Weight 86.183 kg - Exam BMI 28.9 - Constitutional General appearance: Present: average body habitus - EENT Eyes: Present: EOMI ENT: Present: hearing grossly normal - Neck Neck: Present: normal ROM - Respiratory Respiratory: bilateral: CTA - Cardiovascular Rhythm: regular Heart sounds: normal: S1, S2 - Gastrointestinal General gastrointestinal: Present: normal bowel sounds, soft - Integumentary Integumentary: Present: normal turgor - Musculoskeletal Musculoskeletal: Present: gait normal - Psychiatric Psychiatric: Present: A&O x's 3, appropriate affect - Additional findings Additional findings: Breast Exam: BRA 38DD inspection: Breast smaller than left breast, right breast grade 2 ptosis, left breast grade 3 ptosis Palpation: Right breast: multipositional exam Incisions clean and dry well-healed no evidence of recurrent cancer, postop changes fibrocystic changes Right axilla: No adenopathy of concern Left breast: Multiple positional exam fibrocystic changes no dominant masses or nodules of concern line left axilla: No adenopathy of concern Left axilla: No adenopathy of concern Assessment and Plan Assessment: Impression: 1. Stage IA right breast cancer status post lumpectomy/radiation therapy no evidence of recurrent cancer 2. Asymmetry of the breast Plan: 1. Montano pattern reduction mammoplasty secondary to asymmetry of the breast related to right breast cancer treatment 2. Medical clearance 3. Clearance regarding computed tomography scan changes of lung 4. Continue to follow with medical and radiation oncology CC: Dr. Gonzales encounter 25 minutes, > 50% of time in planning and counselling Discussed asymmetry procedure for the left breast. The left nipple areolar complex is approximately 2 cm lower on the left than the right. We discussed the crescent mastopexy vs a Montano pattern reduction mammoplasty. The patient at this time would like to have a Montano pattern reduction mammoplasty performed. She understands the risks and benefits and wishes to proceed. She's been given the option of seeing a plastic surgeon and declined. She understands of the breast will not be exactly the same size but will be closer in size. Additional risks include but are not limited to bleeding, infection, reaction to the anesthetic, she may have some decreased sensation to the nipple areolar complex or necrosis of the complex. She understands and wishes to proceed.
== END | disposition home or self-care (01) ==
LOC: WWCWWP 12:28
PROVIDERS: ATTEND Surgery
DX: Z53.9 Procedure and treatment not carried out, unspecified reason (principal)

== ENCOUNTER → 2020-06-21 | Outpatient (CLI) | payer MEDICARE ==
--- NOTE | 2020-06-21 08:17 | CT ---
EXAMINATION TYPE: CT chest wo con DATE OF EXAM: 06/21/2020 COMPARISON: 12/14/2019 HISTORY: Right breast malignancy CT DLP: 251.[address] of the chest was performed with lung and mediastinal window settings submitted. The la ck of contrast limits evaluation of the vascular, mediastinal and parenchymal structures including th e upper abdomen. LUNGS: Improved pleural thickening right upper lobe and interstitial changes from radiation therapy to the right breast. There is hyperinflation seen compatible with COPD. Scattered parenchymal scarrin g. No infiltrate seen. MEDIASTINUM/PHYLICIA: Thoracic aorta is of normal caliber with limited evaluation given lack of contrast . The heart is not enlarged. No evidence for mediastinal mass. No lymph nodes greater than 1cm. UPPER ABDOMEN: No significant abnormality is seen. OTHER: Postoperative changes right breast. IMPRESSION: 1. Improved pleural thickening right upper lobe and interstitial changes from radiation therapy t o the right breast
== END | disposition home or self-care (01) ==
LOC: RADCTMAIN 07:16
PROVIDERS: ATTEND Radiology Radiation Oncology
DX: C50.411 Malignant neoplasm of upper-outer quadrant of right female breast (principal); R05 Cough; Z92.3 Personal history of irradiation; Z98.890 Other specified postprocedural states; F17.210 Nicotine dependence, cigarettes, uncomplicated
CPT/HCPCS: 71250

== ENCOUNTER 2020-06-28 06:47 | Day surgery (SDC) | payer MEDICARE ==
[2020-06-22 12:15] VITALS: BMI 28.8
[~2020-06-28 06:47] MED LIST changes: -DEXAMETHASONE SOD PHOSPHATE 10 MG/ML 1 ML VIAL IV ONE; +DEXAMETHASONE SOD PHOSPHATE 4 MG/ML 1 ML VIAL IV ONE; -HEPARIN SODIUM,PORCINE 5,000 UNIT/ML 1 ML VIAL SQ ONE; +HEPARIN SODIUM,PORCINE 5,000 UNIT/ML 1 ML VIAL SQ PRN; +HYDROmorphone 0.5 MG/0.5 ML SYRINGE IVP PRN; +LIDOCAINE 1% (10MG/ML) FOR IV START INTRADERMA PRN; -LIDOCAINE 1% 20 ML VIAL (10MG/ML) FOR IV START INTRADERMA PRN; +MIDAZOLAM 2 MG/2 ML VIAL IV PRN
[2020-06-28] MEDS ORDERED: LACTATED RINGERS 1,000 ML IV ONE ×4 (07:11→09:23)
[2020-06-28] MEDS ORDERED: LIDOCAINE (PF) 10 MG/ML 2 ML VIAL SQ ONE ×3 (08:29→11:34)
[2020-06-28] MEDS ORDERED: ePHEDrine SULFATE/0.9% NACL/PF 50 MG/5 ML SYRINGE IV ONE (08:31)
[2020-06-28] MEDS ORDERED: WATER FOR INJECTION, STERILE 10 ML VIAL IV ONE (08:31)
[2020-06-28] MEDS ORDERED: ROCURONIUM 10 MG/ML (10 ML VIAL) IV ONE (08:31)
[2020-06-28] MEDS ORDERED: SUCCINYLCHOLINE CHLORIDE 100 MG/5 ML SYR IV ONE (08:31)
[2020-06-28] MEDS ORDERED: LIDOCAINE 1% INJ 10MG/ML (20 ML MDV) ONE (08:31)
[2020-06-28] MEDS ORDERED: MIDAZOLAM 2 MG/2 ML VIAL ONE (08:31)
[2020-06-28] MEDS ORDERED: fentaNYL (PF) 50 MCG/ML 2 ML AMP ONE (08:31)
[2020-06-28] MEDS ORDERED: HYDROmorphone (PF) 1 MG/ML ONE (08:31)
[2020-06-28] MEDS ORDERED: PROPOFOL 10 MG/ML 20 ML VIAL IV ONE (08:31)
[2020-06-28] MEDS ORDERED: SODIUM CHLORIDE 0.9% 50 ML with ceFAZolin 1,000 MG IV ONE ×4 (09:01→09:10)
--- NOTE | 2020-06-28 11:47 | P.OP ---
Date of Procedure: 06/28/20 Preoperative Diagnosis: Asymmetry of the breast secondary to prior right partial mastectomy for carcinoma Postoperative Diagnosis: Same Procedure(s) Performed: Left breast reduction mammoplasty Anesthesia: ANGEL Surgeon: Clarissa Caldwell Estimated Blood Loss (ml): 20 IV fluids (ml): 1,000 Pathology: other (breast tissue) Condition: stable Disposition: same day Indications for Procedure: Asymmetry of the breast secondary to a right partial mastectomy for carcinoma Operative Findings: Dense breast tissue Description of Procedure: The patient is a 65-year-old white female status post a right partial mastectomy invasive ductal carcinoma. Following partial mastectomy and radiation treatment she developed asymmetry of the breast. She was seen preoperatively and after discussion of options she initially reduction mammoplasty on the left side to be performed. In the preoperative area markings for a Montano pattern reduction mammoplasty were performed. The nipple location on the right was approximately 25.5 cm from the sternal notch it was measured to the same distance on the left. The V on the left was approximately 7-1/2 cm from the nipple location. The areolar was measured to be approximately 2 cm above the nipple location. After the markings were placed the patient was taken to the operating room. In the operating room the right and left breast were prepped and draped in a bravo rile fashion. The markings were reinforced in the operating room. An 8 centimeter inferior pedicle was marked and this tissue was de-epithelialized. Following this the other skin incisions were made and resection of breast tissue both medially and laterally and in a horseshoe fashion around the areola was performed. This tissue was weighed at 170 g. Following this skin flaps were developed medially, laterally and superiorly. After this had been accomplished the skin in the area for the new nipple areolar location was removed. The wound was evaluated and well irrigated. No evidence of bleeding was identified. Surgicel in powder form was placed. The inferior pedicle was secured to the pectoralis muscle using 3-0 Vicryl suture. Following this the limbs of the V incision were brought together. These were secured using 3-0 Vicryl suture. The inferior mammary incisioin was brought together with 3-0 Vicryl suture as well. The areolar complex was secured in place using 3-0 Vicryl suture. The subcuticular tissues were then closed with 4-0 Monocryl. This was followed by a 4-0 nylon skin suture. The patient tolerated the procedure in stable condition. All instrument and sponge counts were correct at the end of the case. Evaluation with the patient sitting up was performed and the nipple areolar complex appeared to be at the same level bilaterally with good symmetry of the breast. The patient tolerated the procedure in stable condition.
--- NOTE | 2020-06-28 11:50 | P.DS ---
Providers Attending physician: Clarissa Caldwell Primary care physician: Nieves Gonzales Plan - Discharge Summary Discharge Rx Participant: No New Discharge Prescriptions: No Action traMADol HCL [Ultram] 50 mg PO Q4-6H PRN PRN Reason: Pain Metoprolol Tartrate [Lopressor] 100 mg PO BID Levothyroxine Sodium [Synthroid] 75 mcg PO DAILY Famotidine 40 mg PO DAILY Vitamin E 1,000 unit PO DAILY Vitamin B Complex 1 each PO DAILY Gentry-3 Fatty Acids [Gentry-3] 1,000 mg PO DAILY Milk Thistle 150 mg PO DAILY Cholecalciferol (Vitamin D3) [Vitamin D3] 2,000 unit PO DAILY Anastrozole [Arimidex] 1 mg PO DAILY Rosuvastatin [Crestor] 5 mg PO QAM Gabapentin 300 mg PO TID Calcium Carbonate [Calcium] 600 mg PO DAILY Discharge Medication List Cholecalciferol (Vitamin D3) [Vitamin D3] 2,000 unit PO DAILY 06/11/19 [History] Famotidine 40 mg PO DAILY 06/11/19 [History] Levothyroxine Sodium [Synthroid] 75 mcg PO DAILY 06/11/19 [History] Metoprolol Tartrate [Lopressor] 100 mg PO BID 06/11/19 [History] Milk Thistle 150 mg PO DAILY 06/11/19 [History] Gentry-3 Fatty Acids [Gentry-3] 1,000 mg PO DAILY 06/11/19 [History] Vitamin B Complex 1 each PO DAILY 06/11/19 [History] Vitamin E 1,000 unit PO DAILY 06/11/19 [History] traMADol HCL [Ultram] 50 mg PO Q4-6H PRN 06/11/19 [History] Anastrozole [Arimidex] 1 mg PO DAILY 12/03/19 [History] Rosuvastatin [Crestor] 5 mg PO QAM 03/18/20 [History] Calcium Carbonate [Calcium] 600 mg PO DAILY 06/22/20 [History] Gabapentin 300 mg PO TID 06/22/20 [History] Follow up Appointment(s)/Referral(s): Clarissa Caldwell MD [STAFF PHYSICIAN] - 1 Week Activity/Diet/Wound Care/Special Instructions: do not drive until seen by Dr. Mccormack wear bra at all times may shower at 48 hours Discharge Disposition: HOME SELF-CARE
[2020-06-28] MEDS ORDERED: ONDANSETRON 4 MG/2 ML VIAL IVP ONE (11:58)
[2020-06-28 12:14] VITALS: TEMP 96.9
[2020-06-28 12:20] VITALS: RESP 16
[2020-06-28] MEDS ORDERED: HYDROcodone/APAP 5-325MG 1 EACH TAB ONE (13:03)
[2020-06-28] MEDS ORDERED: HYDROcodone/APAP 5-325MG 1 EACH TAB PO ONE (13:03)
[2020-06-28 13:38] VITALS: BP 112/70; PULSE 71
== END 2020-06-28 14:19 | disposition home or self-care (01) ==
LOC: OR 06:47
PROVIDERS: ATTEND Surgery
DX: N64.89 Other specified disorders of breast (principal); Z92.3 Personal history of irradiation; Z85.3 Personal history of malignant neoplasm of breast; I10 Essential (primary) hypertension; M19.90 Unspecified osteoarthritis, unspecified site; I83.90 Asymptomatic varicose veins of unspecified lower extremity; H93.19 Tinnitus, unspecified ear; Z80.0 Family history of malignant neoplasm of digestive organs; Z98.51 Tubal ligation status; Z98.890 Other specified postprocedural states; Z79.811 Long term (current) use of aromatase inhibitors; E78.5 Hyperlipidemia, unspecified; G25.81 Restless legs syndrome; E07.9 Disorder of thyroid, unspecified; G47.00 Insomnia, unspecified; R00.0 Tachycardia, unspecified; Z82.49 Family history of ischemic heart disease and other diseases of the circulatory system; Z87.891 Personal history of nicotine dependence; Z79.890 Hormone replacement therapy; Z79.891 Long term (current) use of opiate analgesic; Z79.899 Other long term (current) drug therapy; Z88.8 Allergy status to other drugs, medicaments and biological substances; Z91.048 Other nonmedicinal substance allergy status
CPT/HCPCS: 19318; J2250; J2001 ×2; J1644; J1100; J2405; J0690; J3010; J1170; J0330; J2704; 88305

== ENCOUNTER → 2020-07-07 | Outpatient (CLI) | payer MEDICARE ==
[2020-07-07 16:33] VITALS: BP 153/91; PULSE 77; RESP 18; TEMP 98.1
--- NOTE | 2020-07-07 16:43 | P.PN ---
Progress Note - Text Progress Note Date: 07/07/20 Victorina is a 65 -year-old female status post reduction of the left breast on related to asymmetry for a surgical procedure on the right breast for invasive ductal carcinoma. The patient post procedure is doing well with no complaints. Physical exam: Lungs: Clear Heart: Regular rate and rhythm Incisions: Clean and dry, mild ecchymosis resolving Impression/Plan: Patient doing well status post reduction mammoplasty left breast will plan to remove sutures next week
== END | disposition home or self-care (01) ==
LOC: WWCWWP 16:11
PROVIDERS: ATTEND Surgery
DX: Z53.9 Procedure and treatment not carried out, unspecified reason (principal)

== ENCOUNTER → 2020-07-14 | Outpatient (CLI) | payer MEDICARE ==
[2020-07-14 12:57] VITALS: BP 146/83; PULSE 72; RESP 18; TEMP 98.5
--- NOTE | 2020-07-14 13:21 | P.PN ---
Progress Note - Text Progress Note Date: 07/14/20 Victorina is a 65 -year-old female status post reduction of the left breast on related to asymmetry for a surgical procedure on the right breast for invasive ductal carcinoma. The patient post procedure is doing well with no complaints. Physical exam: Lungs: Clear Heart: Regular rate and rhythm Incisions: Clean and dry, mild ecchymosis resolving Impression/Plan: Patient doing well status post reduction mammoplasty left breast will plan to remove sutures follow up three weeks
== END | disposition home or self-care (01) ==
LOC: WWCWWP 12:36
PROVIDERS: ATTEND Surgery
DX: Z53.9 Procedure and treatment not carried out, unspecified reason (principal)

== ENCOUNTER → 2020-08-05 | Outpatient (CLI) | payer MEDICARE ==
[2020-08-05 15:23] VITALS: BP 146/83; PULSE 76; RESP 18; TEMP 98
--- NOTE | 2020-08-05 15:34 | P.PN ---
Subjective Progress Note Date: 08/05/20 Principal diagnosis: Right breast stage IA invasive ductal carcinoma, lumpectomy done July 2019, patient for contralateral symmetry procedure of the left breast performed in June 2020 Stage IA right breast cancer Victorina is a 64-year-old white female status post right breast lumpectomy and sentinel node biopsy done 08/12/2019. She also had a left breast biopsy which revealed focal atypical ductal hyperplasia. She finished her radiation treatment on October 14. She also saw a medical oncologist and is now on Anestrazole. She has had no side effects. She is not complaining of any hot flashes or bony aches. She had a bilateral mammogram performed on this was benign BIRADS 2. Of importance is the fact of 2019 she underwent a CAT scan of the chest which revealed incomplete resolution of posterior basilar consolidation and/or atelectasis. The anterior upper lung consolidation. Could not exclude pneumonia or infectious etiology but suspect it may be related to her breast radiation treatment and correlation clinically was recommended. The patient is not complaining of any lumps masses or nodules in her breast. She is not complaining of any nipple discharge or skin changes. She has a persistent area at the trifurcation of the incision with a small amount of granulation tissue. This appears to be healing well though with no evidence of any infection. Family history: Father: Esophageal cancer Hormonal history: Menarche: 13 G2 Ab2, no children, tubal ligation at 30 Menopause: 43 control pills: 15 years Hormones: None Surgical history: 1. Tubal ligation 2. Bunionectomy 3. Right breast lumpectomy and sentinel node biopsy, left breast biopsy 4. Left breast reduction mammoplasty Medical history: 1. Varicose veins Social history: Smoke: Negative Alcohol: Wine daily Drugs: Negative Review of systems: Constitutional: Negative HEENT: Negative Ears: Tinnitus Cardiovascular: Hypertension Respiratory: Negative GI: Negative : Status post tubal ligation Musculoskeletal: Arthritis Neurologic: Negative Psychiatric: Negative Objective - Vital Signs Vital signs: Vital Signs Temp 98.0 F 08/05/20 15:21 Pulse 76 08/05/20 15:21 Resp 18 08/05/20 15:21 BP 146/83 08/05/20 15:21 Pulse Ox 96 08/05/20 15:21 Intake & Output 08/04/20 08/05/20 08/05/20 18:59 06:59 18:59 Weight 86.183 kg - Exam BMI 28.9 - Constitutional General appearance: Present: average body habitus - EENT Eyes: Present: EOMI ENT: Present: hearing grossly normal - Neck Neck: Present: normal ROM - Respiratory Respiratory: bilateral: CTA - Cardiovascular Rhythm: regular Heart sounds: normal: S1, S2 - Integumentary Integumentary: Present: normal turgor - Musculoskeletal Musculoskeletal: Present: gait normal - Psychiatric Psychiatric: Present: A&O x's 3, appropriate affect - Additional findings Additional findings: Left breast evaluation is performed Incisions are clean and dry at the trifurcation of the incisions there is a small area of granulation tissue which is healing without difficulty noted evidence of any infection right Breast examination was done in the recent past and was not repeated today Assessment and Plan Assessment: Impression: 1. Patient status post right breast lumpectomy and radiation therapy for stage IA invasive ductal carcinoma 2. Patient status post left breast reduction mammoplasty Plan: 1. Bilateral mammogram in February 2021 2. Follow-up examination here in 3 months Patient is going on a trip to [place] and she will follow-up when she comes back to assure that the left breast incision is well-healed Cc: Dr. Gonzales encounter 15 minutes, > 50% of time in planing and counselling
== END | disposition home or self-care (01) ==
LOC: WWCWWP 15:14
PROVIDERS: ATTEND Surgery
DX: Z53.9 Procedure and treatment not carried out, unspecified reason (principal)

== ENCOUNTER → 2020-11-10 | Outpatient (CLI) | payer MEDICARE ==
[2020-11-10 09:55] VITALS: BP 164/95; PULSE 68; RESP 18; TEMP 98.4
--- NOTE | 2020-11-10 09:58 | P.PN ---
Subjective Progress Note Date: 11/10/20 Principal diagnosis: right bresat stage IA cancer, left breast mammoplasty Right breast stage IA invasive ductal carcinoma, lumpectomy done July 2019, patient for contralateral symmetry procedure of the left breast performed in June 2020 Stage IA right breast cancer Victorina is a 64-year-old white female status post right breast lumpectomy and sentinel node biopsy done 08/12/2019. She also had a left breast biopsy which revealed focal atypical ductal hyperplasia. She finished her radiation treatment on October 14. She also saw a medical oncologist and is now on Anestrazole. She has had no side effects. She is not complaining of any hot flashes or bony aches. She had a bilateral mammogram performed on this was benign BIRADS 2. Of importance is the fact of 2019 she underwent a CAT scan of the chest which revealed incomplete resolution of posterior basilar consolidation and/or atelectasis. The anterior upper lung consolidation. Could not exclude pneumonia or infectious etiology but suspect it may be related to her breast radiation treatment and correlation clinically was recommended. She had a repeat CT scan on June 21 which revealed improved pleural thickening right upper lobe and interstitial changes from radiation therapy to the right breast were noted. This is also being followed by radiation oncology. The patient notes a small amount of nodularity at the 12 o'clock position of the left breast since the mammoplasty. She is not complaining of any nipple discharge or skin changes. She had a persistent area at the trifurcation of the incision with a small amount of granulation tissue which has completely healed at this time. Family history: Father: Esophageal cancer Hormonal history: Menarche: 13 G2 Ab2, no children, tubal ligation at 30 Menopause: 43 control pills: 15 years Hormones: None Surgical history: 1. Tubal ligation 2. Bunionectomy 3. Right breast lumpectomy and sentinel node biopsy, left breast biopsy 4. Left breast reduction mammoplasty Medical history: 1. Varicose veins Social history: Smoke: Negative Alcohol: Wine daily Drugs: Negative Review of systems: Constitutional: Negative HEENT: Negative Ears: Tinnitus Cardiovascular: Hypertension Respiratory: Negative GI: Negative : Status post tubal ligation Musculoskeletal: Arthritis Neurologic: Negative Psychiatric: Negative Objective - Constitutional General appearance: Present: cooperative - EENT Eyes: Present: EOMI ENT: Present: hearing grossly normal - Neck Neck: Present: normal ROM - Respiratory Respiratory: bilateral: CTA - Cardiovascular Rhythm: regular Heart sounds: normal: S1, S2 - Integumentary Integumentary Comment(s): Incision left breast clean and dry, no granulation tissue looks completely healed at this time On examination there is some postoperative changes at the 12 o'clock position which are non-worrisome - Psychiatric Psychiatric: Present: A&O x's 3 Assessment and Plan Assessment: Impression: 1. Patient status post right breast lumpectomy and sentinel node biopsy for stage I a breast cancer 2. Patient on anastrozole 2. Patient status post radiation therapy 4. Patient status post left breast contralateral mammoplasty he was brought at this time 5. review of CT scan done May 2020 done Plan: 1. Bilateral mammogram in February 2021 with appointment following that 2. Patient to follow up sooner if any questions or concerns 2. Continue anastrozole 4. Continue follow-up with medical oncology 5. Continue follow-up with radiation oncology 6. Continue follow-up as per radiation oncology regarding CT findings of the chest CC: Dr. Gonzales
== END ==
LOC: WWCWWP 09:42
PROVIDERS: ATTEND Surgery
DX: C50.911 Malignant neoplasm of unspecified site of right female breast (principal); Z98.890 Other specified postprocedural states; Z92.3 Personal history of irradiation; Z79.811 Long term (current) use of aromatase inhibitors; Z98.86 Personal history of breast implant removal

== ENCOUNTER → 2021-03-15 | Outpatient (CLI) | payer MEDICARE ==
--- NOTE | 2021-03-15 09:42 | MM ---
Reason for exam: additional evaluation requested from prior study. Last mammogram was performed 1 year ago. History: Patient is postmenopausal, has history of breast cancer at age 64, and is nulliparous. Reduction of the left breast, June 2020. Malignant MG pre op loc each addl RT of the right breast, August 12, 2019. Malignant MG pre op needle loc LT of the left breast, August 12, 2019. Lumpectomy of the right breast, August 12, 2019. Radiation therapy of the right breast, 2019. Benign excisional biopsy of the left breast, August 27, 2000. Excisional biopsy of the right breast. Took hormonal contraceptives for 11 years beginning at age 19. Taking antineoplastic beginning at age 64. Physical Findings: Nurse did not find any significant physical abnormalities on exam. MG 3D Diag Mammo W/Cad FLACO Bilateral CC and MLO view(s) were taken. Prior study comparison: March 08, 2020, bilateral MG 3d diag mammo w/cad FLACO. June 04, 2019, bilateral MG 3d work up w/cad FLACO. The breast tissue is heterogeneously dense. This may lower the sensitivity of mammography. Stable post operative lumpectomy change. Post reduction changes left breast. These results were verbally communicated with the patient and result sheet given to the patient on 03/15/21. ASSESSMENT: Benign, BI-RAD 2 RECOMMENDATION: Follow-up diagnostic mammogram of both breasts in 1 year.
== END | disposition home or self-care (01) ==
LOC: RADMAMWWP 08:08
PROVIDERS: ATTEND Surgery
DX: R92.2 Inconclusive mammogram (principal); Z78.0 Asymptomatic menopausal state; Z85.3 Personal history of malignant neoplasm of breast
CPT/HCPCS: 77066; G0279; 77062

== ENCOUNTER → 2021-03-23 | Outpatient (CLI) | payer MEDICARE ==
[2021-03-23 09:46] VITALS: BP 145/84; PULSE 68; RESP 16; TEMP 98.4
--- NOTE | 2021-03-23 10:32 | P.PN ---
Subjective Progress Note Date: 03/23/21 Principal diagnosis: right breast stage 1A invasive cancer dx. 07-10-19 right bresat stage IA cancer, left breast mammoplasty Right breast stage IA invasive ductal carcinoma, lumpectomy done July 2019, patient contralateral symmetry procedure of the left breast performed in [facility] 2019 Stage IA right breast cancer Victorina is a 64-year-old white female status post right breast lumpectomy and sentinel node biopsy done 08/12/2019. She also had a left breast biopsy wh ich revealed focal atypical ductal hyperplasia. She finished her radiation treatment on October 14. She also saw a medical oncologist and is now on Anestrazole. She is planning of some hip and knee discomfort. She is going to discuss this with medical oncology. She is not complaining of any hot flashes. She had a bilateral mammogram performed on this was benign BIRADS 2. Note from DR. Calderon of 12-14-20 revealed patient was noted to be doing well with no evidence of recurrent cancer. Of importance is the fact of 2019 she underwent a CAT scan of the chest which revealed incomplete resolution of posterior basilar consolidation and/or atelectasis. The anterior upper lung consolidation. Could not exclude pneumonia or infectious etiology but suspect it may be related to her breast radiation treatment and correlation clinically was recommended. She had a follow up CT scan on June 21, 2020 which revealed improved pleural thickening right upper lobe and interstitial changes from radiation therapy to the right breast were noted. This is also being followed by radiation oncology. The patient is not complaining of any lumps masses or nodules of concern in either breast. She is not complaining of any nipple discharge or skin changes. Family history: Father: Esophageal cancer Hormonal history: Menarche: 13 G2 Ab2, no children, tubal ligation at 30 Menopause: 43 control pills: 15 years Hormones: None Surgical history: 1. Tubal ligation 2. Bunionectomy 3. Right breast lumpectomy and sentinel node biopsy, left breast biopsy 4. Left breast reduction mammoplasty Medical history: 1. Varicose veins Social history: Smoke: Negative Alcohol: Wine daily Drugs: Negative Review of systems: Constitutional: Negative HEENT: Negative Ears: Tinnitus Cardiovascular: Hypertension Respiratory: Negative GI: Negative : Status post tubal ligation Musculoskeletal: Arthritis Neurologic: Negative Psychiatric: Negative Objective - Vital Signs Vital signs: Vital Signs Temp 98.4 F 03/23/21 09:44 Pulse 68 03/23/21 09:44 Resp 16 03/23/21 09:44 BP 145/84 03/23/21 09:44 Pulse Ox 97 03/23/21 09:44 Intake & Output 03/22/21 03/23/21 03/23/21 18:59 06:59 18:59 Weight 85.275 kg - Constitutional General appearance: Present: average body habitus - EENT Eyes: Present: EOMI ENT: Present: hearing grossly normal - Neck Neck: Present: normal ROM - Respiratory Respiratory: bilateral: CTA - Cardiovascular Rhythm: regular Heart sounds: normal: S1, S2 - Gastrointestinal General gastrointestinal: Present: soft - Integumentary Integumentary: Present: normal turgor - Musculoskeletal Musculoskeletal: Present: gait normal - Psychiatric Psychiatric: Present: A&O x's 3, appropriate affect, intact judgment & insight - Additional findings Additional findings: Breast exam: BRA: 40C inspection: Postoperative changes bilateral breast Palpation: Right breast: Postop changes, no dominant masses or nodules of concern, fibrocystic changes Right axilla: No adenopathy of concern Left breast: Postop changes, no dominant masses or nodules of concern, fibrocystic changes Left axilla: No adenopathy of concern Assessment and Plan Assessment: Impression: 1. Patient status post right breast lumpectomy/radiation therapy/sentinel node biopsy for stage IA invasive ductal carcinoma, no evidence of recurrent disease 2. Patient status post left breast reduction mammoplasty 3. Recent bilateral mammogram performed [id number] benign BIRADS 2 4. Patient presently on anastrozole doing well, some joint discomfort and intermittent hips and knees Plan: 1. Repeat examination in 6 months here 2. Continue to follow with medical and radiation oncology 3. Patient has complained of some joint discomfort intermittently and is going to discuss this with medical oncology if this could be related to the anastrozole CC: Dr. Gonzales
== END ==
LOC: WWCWWP 09:36
PROVIDERS: ATTEND Surgery
DX: Z08 Encounter for follow-up examination after completed treatment for malignant neoplasm (principal); M25.852 Other specified joint disorders, left hip; M25.851 Other specified joint disorders, right hip; M25.862 Other specified joint disorders, left knee; M25.861 Other specified joint disorders, right knee; Z98.890 Other specified postprocedural states; Z85.3 Personal history of malignant neoplasm of breast; Z92.3 Personal history of irradiation; Z98.82 Breast implant status; Z79.811 Long term (current) use of aromatase inhibitors; Z88.8 Allergy status to other drugs, medicaments and biological substances; Z91.041 Radiographic dye allergy status

== ENCOUNTER → 2021-08-08 | Day surgery (SDC) | payer MEDICARE ==
[2021-08-01 11:08] VITALS: BMI 28.8
[~2021-08-08] MED LIST changes: +BUPIVACAINE (PF) 0.5% 30 ML VIAL INTRAARTIC ONE; -DEXAMETHASONE SOD PHOSPHATE 4 MG/ML 1 ML VIAL IV ONE; -HEPARIN SODIUM,PORCINE 5,000 UNIT/ML 1 ML VIAL SQ PRN; +LACTATED RINGERS 1,000 ML IV ONE; +LIDOCAINE 1% INJ 10MG/ML (20 ML MDV) ONE; -MIDAZOLAM 2 MG/2 ML VIAL IV PRN; +MIDAZOLAM 2 MG/2 ML VIAL ONE; +PROPOFOL 10 MG/ML 20 ML VIAL IV ONE; +SODIUM CHLORIDE 0.9% 50 ML with ceFAZolin 2,000 MG IV ONE; +SUCCINYLCHOLINE CHLORIDE 100 MG/5 ML SYR IV ONE; +ePHEDrine 50 MG/ML 1 ML AMP ONE; +fentaNYL (PF) 50 MCG/ML 2 ML AMP ONE; +traMADol 50 MG TAB ONE; +traMADol 50 MG TAB PO ONE
[2021-08-08 12:11] VITALS: TEMP 98.9
--- NOTE | 2021-08-08 14:37 | P.OP ---
Date of Procedure: 08/08/21 Preoperative Diagnosis: Torn medial meniscus left knee Postoperative Diagnosis: 1. Torn medial meniscus left knee 2. 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 Synovitis Procedure(s) Performed: 1. Arthroscopy of the left knee with partial medial meniscectomy (40% meniscus excised) 2. Chondroplasty of the medial femoral and patellofemoral compartments 3. Partial synovectomy of the medial femoral, lateral femoral, patellofemoral compartments Anesthesia: GETA Surgeon: Mark Rsuso Estimated Blood Loss (ml): 5 Pathology: none sent Condition: stable Disposition: PACU Indications for Procedure: This is a 66-year-old female presented my office with pain in her left knee secondary to torn medial meniscus. After failing conservative treatment we discussed surgical and nonsurgical treatment options with her at length she wished to proceed with arthroscopic debridement of her left knee. Informed consent was obtained. Operative Findings: The operative findings are consistent with a tear of the medial meniscus, grade 2 chondral malacia the medial femoral and patellofemoral compartments and synovitis. Description of Procedure: Patient was seen and evaluated in the preoperative area, the operative site was marked with a skin marker. The patient was then brought to the operating room and given 2 g of Ancef intravenously. A general anesthetic was administered by the anesthesia department. Tourniquet was placed on the left upper thigh and the left lower extremity was then prepped and draped in usual sterile fashion. A universal timeout was then performed confirming the patient's name, surgical site, ALLERGIES, and consent. The limb was then exsanguinated and tourniquet insufflated to 250 mmHg. Standard inferior medial and inferior lateral portals were established in the knee. The trochar was inserted in the inferolateral portal. Examination began at the patellofemoral joint. There is noted to be grade 2 chondral malacia the patellofemoral compartment and a moderate amount of synovitis. Next the medial compartment was visualized. There was a tear of the posterior horn of the medial meniscus. There was grade 2 chondral malacia the mediofemoral compartment and synovitis. The notch area was then visualized and the ACL was intact. The Lateral compartment was then visualized and the lateral meniscus was intact. There was no evidence of chondromalacia, but a mild amount of synovitis. Next, using an arthroscopic shaver and a biter, partial medial meniscectomy was performed stable margins. Approximately 40% of the meniscus was excised. A partial synovectomy is performed the medial femoral, lateral femoral, patellofemoral compartments. Chondroplasty was also performed of the medial femoral and patellofemoral compartments of the knee. Knee was then copiously irrigated, instruments removed, incisions were closed with 4-0 nylon. 30 mL of quarter percent plain Marcaine was injected sterilely into the surgical area. A sterile dressing was then applied, and the tourniquet was released. Patient was then transferred to recovery room in stable condition.condition.
[2021-08-08 14:59] VITALS: RESP 16
[2021-08-08 16:36] VITALS: BP 155/88; PULSE 65
== END | disposition home or self-care (01) ==
LOC: OR 11:16
PROVIDERS: ATTEND Orthopaedic Surgery
DX: M23.232 Derangement of other medial meniscus due to old tear or injury, left knee (principal); M22.42 Chondromalacia patellae, left knee; M65.9 Synovitis and tenosynovitis, unspecified; E78.5 Hyperlipidemia, unspecified; I10 Essential (primary) hypertension; E03.9 Hypothyroidism, unspecified; K21.9 Gastro-esophageal reflux disease without esophagitis; Z85.3 Personal history of malignant neoplasm of breast; Z97.3 Presence of spectacles and contact lenses; Z98.890 Other specified postprocedural states; Z87.891 Personal history of nicotine dependence; Z79.890 Hormone replacement therapy; Z79.891 Long term (current) use of opiate analgesic; Z79.899 Other long term (current) drug therapy; Z88.8 Allergy status to other drugs, medicaments and biological substances; Z91.048 Other nonmedicinal substance allergy status
CPT/HCPCS: 29881; J2250; J2405; J0690; J2001; J3010; J0330; J2704; J1170

== ENCOUNTER → 2021-09-21 | Outpatient (CLI) | payer MEDICARE ==
[2021-09-21 12:22] VITALS: BP 153/85; PULSE 61; RESP 18; TEMP 98.3
--- NOTE | 2021-09-21 12:41 | P.PN ---
Subjective Progress Note Date: 09/21/21 Principal diagnosis: stage IA right breast cancer right breast stage 1A invasive cancer dx. 07-10-19 right bresat stage IA cancer, left breast mammoplasty Right breast stage IA invasive ductal carcinoma, lumpectomy done July 2019, patient contralateral symmetry procedure of the left breast performed in June 2020 Stage IA right breast cancer Victorina is a 66-year-old white female status post right breast lumpectomy and sentinel node biopsy done 08/12/2019. She also had a left breast biopsy which revealed focal atypical ductal hyperplasia. She finished her radiation treatment on October 14. She also saw a medical oncologist and is now on Anestrazole. She is planning of some hip and knee discomfort. She is going to discuss this with medical oncology. She is not complaining of any hot flashes. She had a bilateral mammogram performed on this was benign BIRADS 2. Note from DR. Calderon of 12-14-20 revealed patient was noted to be doing well with no evidence of recurrent cancer. Of importance is the fact of 2019 she underwent a CAT scan of the chest which revealed incomplete resolution of posterior basilar consolidation and/or atelectasis. The anterior upper lung consolidation. Could not exclude pneumonia or infectious etiology but suspect it may be related to her breast radiation treatment and correlation clinically was recommended. She had a follow up CT scan on June 21, 2020 which revealed improved pleural thickening right upper lobe and interstitial changes from radiation therapy to the right breast were noted. This is also being followed by radiation oncology. 09-21-21 note 04-04-[address] Mellisa heath kei Is not complaining of any new lumps masses or nodules in either breast. She does not complain of any nipple discharge or skin changes. mammogram on 03-15-21 benign Family history: Father: Esophageal cancer Hormonal history: Menarche: 13 G2 Ab2, no children, tubal ligation at 30 Menopause: 43 control pills: 15 years Hormones: None Surgical history: 1. Tubal ligation 2. Bunionectomy 3. Right breast lumpectomy and sentinel node biopsy, left breast biopsy 4. Left breast reduction mammoplasty 5. left knee arthroscopic surgery Medical history: 1. Varicose veins Social history: Smoke: Negative Alcohol: Wine daily Drugs: Negative Review of systems: Constitutional: Negative HEENT: Negative Ears: Tinnitus Cardiovascular: Hypertension Respiratory: Negative GI: Negative : Status post tubal ligation Musculoskeletal: Arthritis Neurologic: Negative Psychiatric: Negative Objective - Vital Signs Vital signs: Vital Signs Temp 98.3 F 09/21/21 12:16 Pulse 61 09/21/21 12:16 Resp 18 09/21/21 12:16 BP 153/85 09/21/21 12:16 Pulse Ox 98 09/21/21 12:16 Intake & Output 09/20/21 09/21/21 09/21/21 18:59 06:59 18:59 Weight 81.647 kg - Exam BMI 27.4 - Constitutional General appearance: Present: cooperative - EENT Eyes: Present: EOMI ENT: Present: hearing grossly normal - Neck Neck: Present: normal ROM - Respiratory Respiratory: bilateral: CTA - Cardiovascular Rhythm: regular Heart sounds: normal: S1, S2 - Gastrointestinal General gastrointestinal: Present: soft - Integumentary Integumentary: Present: normal turgor - Musculoskeletal Musculoskeletal: Present: gait normal - Psychiatric Psychiatric: Present: A&O x's 3, appropriate affect, intact judgment & insight - Additional findings Additional findings: Breast Exam: BRA: 40D inspection: bilteral 2 ptosis, postop changes bilateral breast Palpation: Right breast: Multiple positional exam fibrocystic changes, postradiation and surgical changes no dominant masses or nodules of concern Right axilla: No adenopathy of concern Left breast: Reveals scars from prior reduction mammoplasty, no dominant masses or nodules of concern Left axilla: No adenopathy of concern Assessment and Plan Assessment: Impression: Patient stable right breast lumpectomy and radiation therapy stage IA invasive ductal carcinoma no evidence of recurrence Patient for bilateral mammogram in February 2022 Plan: Bilateral mammogram 2021 Continue Arimidex Continue follow-up with medical oncology Follow-up here after bilateral mammogram in February CC: Dr. Gonzales
== END ==
LOC: WWCWWP 11:32
PROVIDERS: ATTEND Surgery
DX: Z08 Encounter for follow-up examination after completed treatment for malignant neoplasm (principal); Z98.890 Other specified postprocedural states; Z85.3 Personal history of malignant neoplasm of breast; Z91.041 Radiographic dye allergy status; Z88.8 Allergy status to other drugs, medicaments and biological substances; Z87.891 Personal history of nicotine dependence

== ENCOUNTER → 2021-10-09 | Outpatient (CLI) | payer MEDICARE ==
--- NOTE | 2021-10-09 12:24 | BD ---
EXAMINATION TYPE: Axial Bone Density DATE OF EXAM: 10/09/2021 COMPARISON: 10/07/2019 CLINICAL HISTORY: Height: 67 IN Weight: 188 LBS FRAX RISK QUESTIONS: Secondary Osteoporosis: 3. Menopause before 45: AGE 42 RISK FACTORS HISTORY OF: Family History of Osteoporosis: YES MOTHER Active: YES Diet low in dairy products/other sources of calcium: YES Postmenopausal woman: AGE 42 MEDICATIONS: Thyroid Medications: YES Which medication: Levothyroxine How Lon+ YEARS Osteoporosis Medications: NOT NOW Which medication: Fosamax How Long: TOOK FOR 2 YEARS Additional Medications: CALCIUM, VIT D, LEVOTHYROXINE, BLOOD PRESSURE MEDS, VIT B, FISH OIL, VIT C, A NASTROZOLE, MILK THISTLE,GABAPENTIN Additional History: BREAST CANCER WITH RADIATION EXAM MEASUREMENTS: Bone mineral densitometry was performed using the P[employer] System. Bone mineral density as measured about the Lumbar spine is: ----- L1-L4(G/cm2): 1.048 T Score Values are as follows: ----- L2: -1.8 ----- L3: -0.9 ----- L4: -0.1 ----- L1-L4: -1.1 Bone mineral density has: Decreased -3.3% since study of: 10/07/2019 Bone mineral density about the R hip (g/cm2): 0.852 Bone mineral density about the L hip (g/cm2): 0.822 T Score values are as follows: -----R Neck: -1.3 -----L Neck: -1.6 -----R Total: -1.2 -----L Total: -1.2 Bone mineral density has: Decreased -2.8% since study of: 10/07/2019 IMPRESSION: Osteopenia NOTE: T-SCORE=SD OF THE YOUNG ADULT MEAN.
== END | disposition home or self-care (01) ==
LOC: RADBDWWP 09:50
PROVIDERS: ATTEND Internal Medicine Hematology & Oncology
DX: M85.89 Other specified disorders of bone density and structure, multiple sites (principal); Z78.0 Asymptomatic menopausal state
CPT/HCPCS: 77080

== ENCOUNTER → 2022-10-18 | Outpatient (CLI) | payer MEDICARE ==
[2022-10-18 09:39] VITALS: BP 143/85; PULSE 67; RESP 17; TEMP 98.4
--- NOTE | 2022-10-18 09:50 | P.PN ---
Subjective Progress Note Date: 10/18/22 Principal diagnosis: stage IA right breast invasive ductal cancer [id number]; dx. 07-10-19 Right breast stage IA invasive ductal carcinoma, lumpectomy done July 2019, patient contralateral symmetry procedure of the left breast mammoplasty performed in June 2020 Stage IA right breast cancer Victorina is a 67-year-old white female status post right breast lumpectomy and sentinel node biopsy done 08/12/2019. She also had a left breast biopsy which revealed focal atypical ductal hyperplasia. She finished her radiation treatment on October 14. She also saw a medical oncologist and is now on Anestrazole. She is planning of some hip and knee discomfort, she is following with orthopedic surgery, she was recommended to have a knee replacement on the left side. She is not complaining of any hot flashes. She had a bilateral mammogram performed on this was benign BIRADS 2. She is not complaining of any new lumps masses or nodules of concern in either breast. Note Medical oncology Dr. Pak 03-30-[address] Calderon of 10-10-22 revealed patient was noted to be doing well with no evidence of recurrent cancer. Of importance is the fact of 2019 she underwent a CAT scan of the chest which revealed incomplete resolution of posterior basilar consolidation and/or atelectasis. The anterior upper lung consolidation. Could not exclude pneumonia or infectious etiology but suspect it may be related to her breast radiation treatment and correlation clinically was recommended. She had a follow up CT scan on June 21, 2020 which revealed improved pleural thickening right upper lobe and interstitial changes from radiation therapy to the right breast were noted. This is also being followed by radiation oncology. She is not complaining of any new lumps masses or nodules of concern in either breast. Family history: Father: Esophageal cancer Hormonal history: Menarche: 13 G2 Ab2, no children, tubal ligation at 30 Menopause: 43 control pills: 15 years Hormones: None Surgical history: 1. Tubal ligation 2. Bunionectomy 3. Right breast lumpectomy and sentinel node biopsy, left breast biopsy 4. Left breast reduction mammoplasty 5. left knee arthroscopic surgery Medical history: 1. Varicose veins 2. back pain Social history: Smoke: Negative Alcohol: Wine daily Drugs: Negative Review of systems: Constitutional: Negative HEENT: Negative Ears: Tinnitus Cardiovascular: Hypertension Respiratory: Negative GI: Negative : Status post tubal ligation Musculoskeletal: Arthritis; back pain Neurologic: Negative Psychiatric: Negative Objective - Vital Signs Vital signs: Vital Signs Temp 98.4 F 10/18/22 09:36 Pulse 67 10/18/22 09:36 Resp 17 10/18/22 09:36 BP 143/85 10/18/22 09:36 Pulse Ox 97 10/18/22 09:36 FiO2 Intake & Output 10/17/22 10/18/22 10/18/22 18:59 06:59 18:59 Weight 86.183 kg - Constitutional General appearance: Present: cooperative - EENT Eyes: Present: EOMI ENT: Present: hearing grossly normal - Neck Neck: Present: normal ROM - Respiratory Respiratory: bilateral: CTA - Cardiovascular Rhythm: regular Heart sounds: normal: S1, S2 - Gastrointestinal General gastrointestinal: Present: soft - Integumentary Integumentary: Present: normal turgor - Musculoskeletal Musculoskeletal: Present: gait normal - Psychiatric Psychiatric: Present: A&O x's 3, appropriate affect, intact judgment & insight - Additional findings Additional findings: Breast Exam: BRA: 40C Inspection: bilateral post op changes, grade 2 ptosis bilateral Patient: Right breast: Postop changes, no dominant masses or nodules of concern on multi- positional exam Right axilla: No adenopathy of concern Left breast: Post surgical changes, no dominant masses or nodules of concern of multiple positional exam Left axilla: No adenopathy of concern Assessment and Plan Assessment: Impression: Patient status post right breast invasive ductal carcinoma stage IA 2018 no evidence of any recurrence Patient completed radiation therapy and is presently on Anestrazole which she is tolerating Plan: Bilateral mammogram February 2023 with appointment at that time Continue follow-up with medical oncology Continue follow-up with radiation oncology Patient to follow up sooner any questions or concerns Cc: Dr. Gonzales
== END ==
LOC: WWCWWP 09:17
PROVIDERS: ATTEND Surgery
DX: Z85.3 Personal history of malignant neoplasm of breast (principal); Z80.9 Family history of malignant neoplasm, unspecified; Z51.0 Encounter for antineoplastic radiation therapy; Z88.8 Allergy status to other drugs, medicaments and biological substances; Z91.041 Radiographic dye allergy status; Z87.891 Personal history of nicotine dependence

== ENCOUNTER → 2023-03-20 | Outpatient (CLI) | payer MEDICARE ==
--- NOTE | 2023-03-21 08:02 | MM ---
Reason for Exam: Screening (asymptomatic). Last screening mammogram was performed 12 month(s) ago. Patient History: Menarche at age 12. Patient has no children. Postmenopausal. Breast cancer, right, age 64. Previous chest radiation therapy at age 64. Hormonal Contraceptives for 11 years from age 19 until age 30. Excisional Biopsy on the Right side. 06/2020, Reduction on the Left side. 08/12/2019, Lumpectomy on the Right side. 08/12/2019, Malignant Core Biopsy on the right side. 08/12/2019, Malignant Core Biopsy on the left side. 08/27/2000, Benign Excisional Biopsy on the left side. 2019, Radiation Therapy on the right side. Prior Study Comparison: 03/08/2020 Bilateral Diagnostic Mammogram, [facility]. 03/15/2021 Bilateral Diagnostic Mammogram, [facility]. 03/19/2022 Bilateral MG 3D diag mammo w/cad [facility], [facility]. Tissue Density: The breast tissue is heterogeneously dense. This may lower the sensitivity of mammography. Findings: Analyzed By CAD. There is a new nodule upper outer right breast between 8 and 9 cm from the nipple. Additional views are recommended. Traumatic oil cysts are seen bilaterally. History of prior right-sided lumpectomy. Overall Assessment: Incomplete: need additional imaging evaluation, BI-RAD 0 Management: Diagnostic Mammogram of the right breast. . Patient should continue monthly self-breast exams. A clinical breast exam by your physician is recommended on an annual basis. This exam should not preclude additional follow-up of suspicious palpable abnormalities. Note on Eliza scores and lifetime risk: 1. A Eliza score greater than 3% is considered moderate risk. If this is the case, consider specialist referral to assess eligibility for a risk reducing agent. 2. If overall lifetime risk for the development of breast cancer is 20% or higher, the patient may qualify for future screening with alternating mammogram and breast MRI. Electronically signed and approved by: Meet Barahona M.D. Radiologis
== END | disposition home or self-care (01) ==
LOC: RADMAMWWP 09:13
PROVIDERS: ATTEND Surgery
DX: Z12.31 Encounter for screening mammogram for malignant neoplasm of breast (principal); Z78.0 Asymptomatic menopausal state; Z85.3 Personal history of malignant neoplasm of breast
CPT/HCPCS: 77063; 77067

== ENCOUNTER → 2023-03-22 | Outpatient (CLI) | payer MEDICARE ==
--- NOTE | 2023-03-22 10:45 | USB ---
Patient History: Menarche at age 12. Patient has no children. Postmenopausal. Breast cancer, right, age 64. Previous chest radiation therapy at age 64. Hormonal Contraceptives for 11 years from age 19 until age 30. Excisional Biopsy on the Right side. 06/2020, Reduction on the Left side. 08/12/2019, Lumpectomy on the Right side. 08/12/2019, Malignant Core Biopsy on the right side. 08/12/2019, Malignant Core Biopsy on the left side. 08/27/2000, Benign Excisional Biopsy on the left side. 2019, Radiation Therapy on the right side. Technique: Method: Targeted. Prior Study Comparison: 03/15/2021 Bilateral Diagnostic Mammogram, [facility]. 03/19/2022 Bilateral MG 3D diag mammo w/cad [facility], [facility]. 03/20/2023 Bilateral MG 3D screening mammo w/cad, [facility]. Findings: The upper outer quadrant of the right breast, the axilla of the right breast and the retroareolar of the right breast were scanned. Imaged: Ultrasound imaging of: All 4 quadrants, the retroareolar region and axilla. Irregular shaped lesion at 10:00 9 cm from the nipple which is predominantly hypoechoic with irregular borders. No abnormally enlarged lymph nodes in the axilla. Overall Assessment: Highly suggestive of malignancy, BI-RAD 5 Management: Ultrasound Core Biopsy of the right breast. A clinical breast exam by your physician is recommended on an annual basis and results should be correlated with mammographic findings. This exam should not preclude additional follow-up of suspicious palpable abnormalities. Results were given to the patient verbally at the time of exam. Electronically signed and approved by: Pablo Amaya DO
--- NOTE | 2023-03-22 11:14 | MM ---
Reason for Exam: Additional evaluation requested from abnormal screening. Last screening mammogram was performed less than 1 month ago. Patient History: Menarche at age 12. Patient has no children. Postmenopausal. Breast cancer, right, age 64. Previous chest radiation therapy at age 64. Hormonal Contraceptives for 11 years from age 19 until age 30. Excisional Biopsy on the Right side. 06/2020, Reduction on the Left side. 08/12/2019, Lumpectomy on the Right side. 08/12/2019, Malignant Core Biopsy on the right side. 08/12/2019, Malignant Core Biopsy on the left side. 08/27/2000, Benign Excisional Biopsy on the left side. 2019, Radiation Therapy on the right side. Prior Study Comparison: 04/29/2018 Bilateral Screening Mammogram, [facility]. 03/08/2020 Bilateral Diagnostic Mammogram, [facility]. 03/15/2021 Bilateral Diagnostic Mammogram, [facility]. 03/19/2022 Bilateral MG 3D diag mammo w/cad [facility], [facility]. 03/20/2023 Bilateral MG 3D screening mammo w/cad, [facility]. Tissue Density: Right: There are scattered fibroglandular densities. Findings: Analyzed By CAD. Right breast lateral aspect posterior depth demonstrates a lesion measuring 10 mm and is 9.3 cm from the nipple. Benign-appearing oil cyst with peripheral desiccation and surgical clips present. Overall Assessment: Incomplete: need additional imaging evaluation, BI-RAD 0 Management: Diagnostic Breast Ultrasound of the right breast. Results were given to the patient verbally at the time of exam. Patient should continue monthly self-breast exams. A clinical breast exam by your physician is recommended on an annual basis. This exam should not preclude additional follow-up of suspicious palpable abnormalities. Note on Eliza scores and lifetime risk: 1. A Eliza score greater than 3% is considered moderate risk. If this is the case, consider specialist referral to assess eligibility for a risk reducing agent. 2. If overall lifetime risk for the development of breast cancer is 20% or higher, the patient may qualify for future screening with alternating mammogram and breast MRI. Electronically signed and approved by: Pablo Amaya DO
== END | disposition home or self-care (01) ==
LOC: RADMAMWWP 09:38
PROVIDERS: ATTEND Surgery
DX: R92.8 Other abnormal and inconclusive findings on diagnostic imaging of breast (principal); Z78.0 Asymptomatic menopausal state; Z85.3 Personal history of malignant neoplasm of breast; Z92.3 Personal history of irradiation
CPT/HCPCS: 77061; 77065

== ENCOUNTER → 2023-04-03 | Day surgery (SDC) | payer MEDICARE ==
--- NOTE | 2023-04-10 09:19 | MM ---
Reason for Exam: Post Procedure Mammogram. Last screening mammogram was performed less than 1 month ago. Patient History: Menarche at age 12. Patient has no children. Postmenopausal. Breast cancer, right, age 64. Previous chest radiation therapy at age 64. Hormonal Contraceptives for 11 years from age 19 until age 30. Excisional Biopsy on the Right side. 06/2020, Reduction on the Left side. 08/12/2019, Lumpectomy on the Right side. 08/12/2019, Malignant Core Biopsy on the right side. 08/12/2019, Malignant Core Biopsy on the left side. 08/27/2000, Benign Excisional Biopsy on the left side. 2019, Radiation Therapy on the right side. Prior Study Comparison: 04/29/2018 Bilateral Screening Mammogram, [facility]. 05/25/2019 Bilateral Screening Mammogram, [facility]. 06/04/2019 Bilateral Diagnostic Mammogram, [facility]. 03/08/2020 Bilateral Diagnostic Mammogram, [facility]. 03/15/2021 Bilateral Diagnostic Mammogram, [facility]. 03/19/2022 Bilateral MG 3D diag mammo w/cad FLACO, [facility]. 03/20/2023 Bilateral MG 3D screening mammo w/cad, [facility]. 03/22/2023 Right MG 3D work up w/cad RT, [facility]. Tissue Density: Right: The breast tissue is heterogeneously dense. This may lower the sensitivity of mammography. Pathology Description: Location: 10 o'clock. Marker Left Behind. Needle Type: Mammotome Cores: 6 Skin Nicks: 1 Gauge: 13 The procedure of ultrasound guided core biopsy was explained to the patient. Benefits, alternatives, and risks were discussed. An informed consent was then obtained. A timeout was performed. The patient was placed in supine positioning for imaging and for the procedure. The overlying skin was prepped and draped in usual sterile fashion. Lidocaine was used as anesthetic into the skin and subcutaneous tissue up to area of concern in the right breast. A small skin irvin was made with surgical scalpel. Under ultrasound guidance, a 12-gauge vacuum assisted biopsy gun device was used to obtain 6 core samples. A biopsy clip was left in lesion. Hydromark core top ladies' hat trimmer was placed. The patient tolerated the procedure well without any immediate complication. The patient was kept in the radiology department for short stay after the procedure and then discharged home in stable condition. Postprocedure mammogram: The patient was transferred to mammography for physician ordered post procedure mammogram for clip placement verification. Impression: Successful ultrasound guided core biopsy of area of concern in the breast, full pathology results to follow. Recommendations: 1. Recommendations are pending pathology results. Pathology Results: RIGHT BREAST, TEN O'CLOCK, ULTRASOUND GUIDED NEEDLE CORE BIOPSY: Scar/fibrosis with fat necrosis and mild chronic inflammation, negative for malignancy. See note. Notes CK AE1/3 immunostain performed and evaluated with an appropriate positive control is negative for evidence of invasive carcinoma. The results confirm the above diagnosis. Overall Assessment: Suspicious, BI-RAD 4 Assessment: MG diagnostic mammo RT wo CAD - Right: Suspicious, BI-RAD 4. Management: Surgical Consultation of the right breast. Repeat Procedure Repeat reason: Histologic or cytologic discordance with imaging. Findings may be concordant but given imaging appearance and increasing size, treat as discordant with needle localization and excision. Electronically signed and approved by: Donal Vernon D.O. Radiologis
== END ==
LOC: RADUSWWP 10:15
PROVIDERS: ATTEND Surgery
DX: C50.911 Malignant neoplasm of unspecified site of right female breast (principal); Z78.0 Asymptomatic menopausal state
CPT/HCPCS: 88305; 88342; 77065; 19083; A4648

== ENCOUNTER → 2023-04-11 | Outpatient (CLI) | payer MEDICARE ==
--- NOTE | 2023-04-11 13:41 | P.PN ---
Subjective Progress Note Date: 04/11/23 Principal diagnosis: stage IA right breast invasive ductal cancer, dx. 2019; core biopsy discordant right breast 04-03-23 stage IA right breast invasive ductal cancer [id number]+Her2-; dx. 07-10-19 Right breast stage IA invasive ductal carcinoma, lumpectomy done July 2019, patient contralateral symmetry procedure of the left breast mammoplasty performed in June 2020 Stage IA right breast cancer Victorina is a 67-year-old white female status post right breast lumpectomy and sentinel node biopsy done 08/12/2019. She also had a left breast biopsy which revealed focal atypical ductal hyperplasia. She finished her radiation treatment on October 14. She also saw a medical oncologist and is now on Anestrazole. She is planning of some hip and knee discomfort, she is following with orthopedic surgery, she was recommended to have a knee replacement on the left s james. She is not complaining of any hot flashes. She had a bilateral mammogram performed on this was benign BIRADS 2. She is not complaining of any new lumps masses or nodules of concern in either breast. Note Medical oncology Dr. Pak 03-30-[address] Calderon of 10-10-22 revealed patient was noted to be doing well with no evidence of recurrent cancer. Of importance is the fact of 2019 she underwent a CAT scan of the chest which revealed incomplete resolution of posterior basilar consolidation and/or atelectasis. The anterior upper lung consolidation. Could not exclude pneumonia or infectious etiology but suspect it may be related to her breast radiation treatment and correlation clinically was recommended. She had a follow up CT scan on June 21, 2020 which revealed improved pleural thickening right upper lobe and interstitial changes from radiation therapy to the right breast were noted. This is also being followed by radiation oncology. She is not complaining of any new lumps masses or nodules of concern in either breast. 04-11-23 The patient on 03-20-23 had a bilateral mammogram done, this revealed a new nodule in the right breast. Nothing of concern noted in the left breast. This led to a right breast diagnostic mammogram and ultrasound on 03-22-23. These led to a right breast ultrasound core biopsy on 04-03-23. The core biopsy was felt to be discordant from radiolsoy and needle localization and resection recommended. This was reviewed with Dr. Lee. She is continuing on her anastrozole. She is scheduled at this time for total knee replacement on the left side. He does not feel any new lumps masses or nodules of concern in either breast. She is status post right breast lumpectomy and sentinel node biopsy done on . This was for a stage I invasive ductal carcinoma. She was treated with radiation therapy which he completed on 10/15/2019. She is also on anastrozole. She did not receive any chemotherapy. Family history: Father: Esophageal cancer Hormonal history: Menarche: 13 G2 Ab2, no children, tubal ligation at 30 Menopause: 43 control pills: 15 years Hormones: None Surgical history: 1. Tubal ligation 2. Bunionectomy 3. Right breast lumpectomy and sentinel node biopsy, left breast biopsy 4. Left breast reduction mammoplasty 5. left knee arthroscopic surgery Medical history: 1. Varicose veins 2. back pain Social history: Smoke: Negative Alcohol: Wine daily Drugs: Negative Review of systems: Constitutional: Negative HEENT: Negative Ears: Tinnitus Cardiovascular: Hypertension Respiratory: Negative GI: Negative : Status post tubal ligation Musculoskeletal: Arthritis; back pain Neurologic: Negative Psychiatric: Negative Objective - Vital Signs Vital signs: Vital Signs Temp 98.4 F 10/18/22 09:36 Pulse 67 10/18/22 09:36 Resp 17 10/18/22 09:36 BP 143/85 10/18/22 09:36 Pulse Ox 97 10/18/22 09:36 FiO2 Intake & Output 10/17/22 10/18/22 10/18/22 18:59 06:59 18:59 Weight 86.183 kg - Constitutional General appearance: Present: cooperative - EENT Eyes: Present: EOMI ENT: Present: hearing grossly normal - Neck Neck: Present: normal ROM - Respiratory Respiratory: bilateral: CTA - Cardiovascular Rhythm: regular Heart sounds: normal: S1, S2 - Gastrointestinal General gastrointestinal: Present: soft - Integumentary Integumentary: Present: normal turgor - Musculoskeletal Musculoskeletal: Present: gait normal - Psychiatric Psychiatric: Present: A&O x's 3, appropriate affect, intact judgment & insight - Additional findings Additional findings: Breast Exam: BRA: 40C Inspection: bilateral post op changes, grade 2 ptosis bilateral Patient: Right breast: Postop changes, no dominant masses or nodules of concern on multi- positional exam Right axilla: No adenopathy of concern Left breast: Post surgical changes, no dominant masses or nodules of concern of multiple positional exam Left axilla: No adenopathy of concern Assessment and Plan Assessment: Impression: Patient status post right breast invasive ductal carcinoma stage IA 2019 no evidence of any recurrence Patient completed radiation therapy and is presently on Anestrazole which she is tolerating Plan: Bilateral mammogram February 2023 with appointment at that time Continue follow-up with medical oncology Continue follow-up with radiation oncology Patient to follow up sooner any questions or concerns Cc: Dr. Gonzales Objective - Vital Signs Vital signs: Intake & Output 04/10/23 04/11/23 04/11/23 18:59 06:59 18:59 Weight 83.007 kg - Constitutional General appearance: Present: cooperative - EENT Eyes: Present: EOMI ENT: Present: hearing grossly normal - Neck Neck: Present: normal ROM - Respiratory Respiratory: bilateral: CTA - Cardiovascular Rhythm: regular Heart sounds: normal: S1, S2 - Integumentary Integumentary: Present: normal turgor - Musculoskeletal Musculoskeletal: Present: gait normal - Psychiatric Psychiatric: Present: A&O x's 3, appropriate affect, intact judgment & insight - Additional findings Additional findings: Breast Exam: BRA: 40C Inspection: bilateral post op changes, grade 2 ptosis bilateral Patient: Right breast: Postop changes, no dominant masses or nodules of concern on multi- positional exam, of ecchymosis lateral aspect right breast near recent core biopsy Right axilla: No adenopathy of concern Left breast: Post surgical changes, no dominant masses or nodules of concern of multiple positional exam Left axilla: No adenopathy of concern Assessment and Plan Assessment: Impression: Patient status post right breast lumpectomy/radiation therapy/hormone therapy for stage IA invasive ductal carcinoma Recent bilateral mammogram Of concern right breast Core biopsy right breast on 96 felt to be discordant Plan: Right breast needle localization excisional biopsy of discordant lesion, possible optical plastic tissue transfer Patient has been scheduled for a knee replacement which we will recommend be deferred until results of the biopsies are obtained Clearance Dr. Gonzales Cc: Dr. Gonzales
[2023-04-11 16:08] VITALS: BP 149/82; PULSE 66; RESP 17; TEMP 97.8
== END ==
LOC: WWCWWP 12:36
PROVIDERS: ATTEND Surgery
DX: Z12.31 Encounter for screening mammogram for malignant neoplasm of breast (principal); Z85.3 Personal history of malignant neoplasm of breast; Z51.0 Encounter for antineoplastic radiation therapy; Z92.3 Personal history of irradiation; Z88.8 Allergy status to other drugs, medicaments and biological substances; Z91.041 Radiographic dye allergy status; Z87.891 Personal history of nicotine dependence

== ENCOUNTER → 2023-05-08 | Day surgery (SDC) | payer MEDICARE ==
--- NOTE | 2023-05-14 10:31 | MM ---
Reason for Exam: Post Procedure Mammogram. Last screening mammogram was performed 2 month(s) ago. Patient History: Menarche at age 12. Patient has no children. Postmenopausal. Breast cancer, right, age 64. Previous chest radiation therapy at age 64. Hormonal Contraceptives for 11 years from age 19 until age 30. 04/16/2023, Benign MG pre op needle loc RT on the right side. 04/03/2023, US biopsy breast VAD RT on the Right side. Excisional Biopsy on the Right side. 06/2020, Reduction on the Left side. 08/12/2019, Lumpectomy on the Right side. 08/12/2019, Malignant Core Biopsy on the right side. 08/12/2019, Malignant Core Biopsy on the left side. 08/27/2000, Benign Excisional Biopsy on the left side. 2019, Radiation Therapy on the right side. Prior Study Comparison: 03/22/2023 Right MG 3D work up w/cad RT, [facility]. 04/03/2023 Right MG diagnostic mammo RT wo CAD, [facility] 04/26/2023 Left MG 3D diag mammo w/cad LT, [facility]. Tissue Density: Left: The breast tissue is heterogeneously dense. This may lower the sensitivity of mammography. Pathology Description: Location: 3 o'clock. Marker Left Behind. Needle Type: Celero Cores: 3 Gauge: 12 The procedure of ultrasound guided core biopsy was explained to the patient. Benefits, alternatives, and risks were discussed. An informed consent was then obtained. The patient was placed in supine positioning for imaging and for the procedure. The overlying skin was prepped and draped in usual sterile fashion. Lidocaine buffered with bicarbonate was used as anesthetic into the skin and subcutaneous tissue up to area of concern in the left 3:00 breast. A irvin was made with surgical scalpel. Under ultrasound guidance, a 12-gauge vacuum assisted biopsy gun device was used to obtain 3 core samples. Following this, a biopsy clip was left in lesion. The patient tolerated the procedure well without any immediate complication. The patient was kept in the radiology department for short stay after the procedure and then discharged home in stable condition. Postprocedure mammogram: The patient was transferred to mammography for physician ordered post procedure mammogram for clip placement verification. Impression: Successful, uncomplicated ultrasound guided core biopsy of area of concern in the left 3:00 breast, full pathology results to follow. Pathology Results: Result: Malignant, Invasive ductal carcinoma. LEFT BREAST, THREE O'CLOCK POSITION, ULTRASOUND GUIDED CORE BIOPSY: Invasive ductal carcinoma with focal micropapillary features, grade 2. See Surgical Pathology Cancer Case Summary and Comment. Overall Assessment: Malignant Assessment: MG diagnostic mammo LT wo CAD. - Left: Known biopsy proven malignancy, BI-RAD 6. Management: Surgical Consultation of the left breast. Electronically signed and approved by: Meet Barahona M.D. Radiologis
== END | disposition home or self-care (01) ==
LOC: RADUSWWP 07:54
PROVIDERS: ATTEND Internal Medicine Hematology & Oncology
DX: C50.812 Malignant neoplasm of overlapping sites of left female breast (principal); Z17.0 Estrogen receptor positive status [ER+]; Z78.0 Asymptomatic menopausal state
CPT/HCPCS: 88305; 88342; 88341; 77065; 19083; A4648

== ENCOUNTER → 2023-05-17 | Outpatient (CLI) | payer MEDICARE ==
--- NOTE | 2023-05-17 10:52 | P.PN ---
Subjective Progress Note Date: 05/17/23 Principal diagnosis: new diagnosis left breast IDC stage IA right breast invasive ductal cancer [id number]+Pr+Her2-; dx. 07-10-19 Right breast stage IA invasive ductal carcinoma, lumpectomy done July 2019, patient contralateral symmetry procedure of the left breast mammoplasty performed in June 2020 Stage IA right breast cancer Victorina is a 67-year-old white female status post right breast lumpectomy and sentinel node biopsy done 08/12/2019. She also had a left breast biopsy which revealed focal atypical ductal hyperplasia. She finished her radiation treatment on October 14. She also saw a medical oncologist and is now on Anestrazole. She is planning of some hip and knee discomfort, she is following with orthopedic surgery, she was recommended to have a knee replacement on the left side. She is not complaining of any hot flashes. She had a bilateral mammogram performed on this was benign BIRADS 2. She is not complaining of any new lumps masses or nodules of concern in either breast. Note Medical oncology Dr. Pak 03-30-[address] Calderon of 10-10-22 revealed patient was noted to be doing well with no evidence of recurrent cancer. Of importance is the fact of 2019 she underwent a CAT scan of the chest which revealed incomplete resolution of posterior basilar consolidation and/or atelectasis. The anterior upper lung consolidation. Could not exclude pneumonia or infectious etiology but suspect it may be related to her breast radiation treatment and correlation clinically was recommended. She had a follow up CT scan on June 21, 2020 which revealed improved pleural thickening right upper lobe and interstitial changes from radiation therapy to the right breast were noted. This is also being followed by radiation oncology. She is not complaining of any new lumps masses or nodules of concern in either breast. 04-11-23 The patient on 03-20-23 had a bilateral mammogram done, this revealed a new nodule in the right breast. Nothing of concern noted in the left breast. This led to a right breast diagnostic mammogram and ultrasound on 03-22-23. These led to a right breast ultrasound core biopsy on 04-03-23. The core biopsy was felt to be discordant from radiolsoy and needle localization and resection recommended. This was reviewed with Dr. Lee. Open resection in the operating room benign. She is continuing on her anastrozole. She is scheduled at this time for total knee replacement on the left side. He does not feel any new lumps masses or nodules of concern in either breast. She is status post right breast lumpectomy and sentinel node biopsy done on [id number]. This was for a stage I invasive ductal carcinoma. She was treated with radiation therapy which he completed on 10/15/2019. She is also on anastrozole. She did not receive any chemotherapy. 05-17-23 The patient was seen by Dr. Pak who was concerned about an are in the left breast. Additional x-ray and ultrasound were done, biopsy + IDC. He had a diagnostic mammogram performed on this was felt to be BIRADS 0 and was followed by an ultrasound on the same day. On the ultrasound a 1.5 cm area was identified and it was unable to determine if this was focal scar tissue were suspicious lesion. Therefore core biopsy was obtained. The core biopsy of this site was done on [id number]. This was G2 ER+GA+ HER-2/isa negative. She tolerated the biopsy without difficulty. Family history: Father: Esophageal cancer Hormonal history: Menarche: 13 G2 Ab2, no children, tubal ligation at 30 Menopause: 43 control pills: 15 years Hormones: None Surgical history: 1. Tubal ligation 2. Bunionectomy 3. Right breast lumpectomy and sentinel node biopsy, left breast biopsy 4. Left breast reduction mammoplasty 5. left knee arthroscopic surgery Medical history: 1. Varicose veins 2. back pain Social history: Smoke: Negative Alcohol: Wine daily Drugs: Negative Review of systems: Constitutional: Negative HEENT: Negative Ears: Tinnitus Cardiovascular: Hypertension Respiratory: Negative GI: Negative : Status post tubal ligation Musculoskeletal: Arthritis; back pain Neurologic: Negative Psychiatric: Negative Objective - Constitutional General appearance: Present: cooperative - EENT Eyes: Present: EOMI ENT: Present: hearing grossly normal - Neck Neck: Present: normal ROM - Respiratory Respiratory: bilateral: CTA - Cardiovascular Rhythm: regular Heart sounds: normal: S1, S2 - Gastrointestinal General gastrointestinal: Present: soft - Integumentary Integumentary: Present: normal turgor - Musculoskeletal Musculoskeletal: Present: gait normal - Psychiatric Psychiatric: Present: A&O x's 3, appropriate affect, intact judgment & insight - Additional findings Additional findings: Breast Exam: BRA: 40C Inspection: bilateral post op changes, grade 2 ptosis bilateral Patient: Right breast: Postop changes, no dominant masses or nodules of concern on multi- positional exam, well healed scar recent biopsy Right axilla: No adenopathy of concern Left breast: Post surgical changes, some increased nodularity at the 12 o'clock position no other dominant masses or nodules of concern Left axilla: No adenopathy of concern Assessment and Plan Assessment: Impression: Patient status post right breast lumpectomy/radiation therapy/hormone therapy for stage IA invasive ductal carcinoma Recent bilateral mammogram Of concern right breast Core biopsy right breast on 9622 felt to be discordant recent open biopsy benign left breast core biopsy + IDC Plan: Patient has been scheduled for a knee replacement which we will recommend be deferred until results of the biopsies are obtained Case to be presented at tumor board Left breast needle localization lumpectomy, possible optical plastic tissue transfer, left sentinel node injection, left sentinel node biopsy Bilateral breast MRI Clearance Dr. Gonzales Cc: Dr. Gonzales
[2023-05-17 11:50] VITALS: BP 143/72; PULSE 63; RESP 17; TEMP 97.8
== END ==
LOC: WWCWWP 10:12
PROVIDERS: ATTEND Surgery
DX: C50.911 Malignant neoplasm of unspecified site of right female breast (principal); N60.92 Unspecified benign mammary dysplasia of left breast; Z17.0 Estrogen receptor positive status [ER+]; Z79.811 Long term (current) use of aromatase inhibitors; Z92.3 Personal history of irradiation; Z88.8 Allergy status to other drugs, medicaments and biological substances; Z87.891 Personal history of nicotine dependence

== ENCOUNTER → 2023-06-28 | Outpatient (CLI) | payer MEDICARE ==
--- NOTE | 2023-06-28 15:18 | P.PN ---
Subjective Progress Note Date: 06/28/23 Principal diagnosis: bilateral breast cancer: right 07-17-19 stage I left invasive ductal cancer 05-08-2023; stage I Subjective Progress Note Date: 06-28-23 Principal diagnosis: new diagnosis left breast IDC stage IA right breast invasive ductal cancer [id number]; dx. 07-10-19 Right breast stage IA invasive ductal carcinoma, lumpectomy done July 2019, patient contralateral symmetry procedure of the left breast mammoplasty performed in June 2020 05-17-23 Stage IA right breast cancer Victornia is a 67-year-old white female status post right breast lumpectomy and sentinel node biopsy done 08/12/2019. She also had a left breast biopsy which revealed focal atypical ductal hyperplasia. She finished her radiation treatment on October 14. She also saw a medical oncologist and is now on Anestrazole. She is planning of some hip and knee discomfort, she is following with orthopedic surgery, she was recommended to have a knee replacement on the left side. She is not complaining of any hot flashes. She had a bilateral mammogram performed on this was benign BIRADS 2. She is not complaining of any new lumps masses or nodules of concern in either breast. Note Medical oncology Dr. Pak 03-30-[address] Calderon of 10-10-22 revealed patient was noted to be doing well with no evidence of recurrent cancer. Of importance is the fact of 2019 she underwent a CAT scan of the chest which revealed incomplete resolution of posterior basilar consolidation and/or atelectasis. The anterior upper lung consolidation. Could not exclude pneumonia or infectious etiology but suspect it may be related to her breast radiation treatment and correlation clinically was recommended. She had a follow up CT scan on June 21, 2020 which revealed improved pleural thickening right upper lobe and interstitial changes from radiation therapy to the right breast were noted. This is also being followed by radiation oncology. She is not complaining of any new lumps masses or nodules of concern in either breast. 04-11-23 The patient on 03-20-23 had a bilateral mammogram done, this revealed a new nodule in the right breast. Nothing of concern noted in the left breast. This led to a right breast diagnostic mammogram and ultrasound on 03-22-23. These led to a right breast ultrasound core biopsy on 04-03-23. The core biopsy was felt to be discordant from radiolsoy and needle localization and resection recommended. This was reviewed with Dr. Lee. Open resection in the operating room benign. She is continuing on her anastrozole. She is scheduled at this time for total knee replacement on the left side. He does not feel any new lumps masses or nodules of concern in either breast. She is status post right breast lumpectomy and sentinel node biopsy done on . This was for a stage I invasive ductal carcinoma. She was treated with radiation therapy which he completed on 10/15/2019. She is also on anastrozole. She did not receive any chemotherapy. 05-17-23 The patient was seen by Dr. Pka who was concerned about an are in the left breast. Additional x-ray and ultrasound were done, biopsy + IDC. She had a diagnostic mammogram performed on this was felt to be BIRADS 0 and was followed by an ultrasound on the same day. On the ultrasound a 1.5 cm area was identified and it was unable to determine if this was focal scar tissue were suspicious lesion. Therefore core biopsy was obtained. The core biopsy of this site was done on [id number]. This was G2 ER+NJ+ HER-2/isa negative. She tolerated the biopsy without difficulty. MRI performed on : Enhancement in the right breast was identified which was felt to be related to fat necrosis or seromas she has had recent right breast surgery No lesions of concern noted in the left breast genetic testing (-) Patient was felt to be medically optimized for surgery by Dr. Gonzales Family history: Father: Esophageal cancer Hormonal history: Menarche: 13 G2 Ab2, no children, tubal ligation at 30 Menopause: 43 control pills: 15 years Hormones: None Surgical history: 1. Tubal ligation 2. Bunionectomy 3. Right breast lumpectomy and sentinel node biopsy, left breast biopsy 4. Left breast reduction mammoplasty 5. left knee arthroscopic surgery Medical history: 1. Varicose veins 2. back pain Social history: Smoke: Negative Alcohol: Wine daily Drugs: Negative Review of systems: Constitutional: Negative HEENT: Negative Ears: Tinnitus Cardiovascular: Hypertension Respiratory: Negative GI: Negative : Status post tubal ligation Musculoskeletal: Arthritis; back pain Neurologic: Negative Psychiatric: Negative Objective - Constitutional General appearance: Present: cooperative - EENT Eyes: Present: EOMI ENT: Present: hearing grossly normal - Neck Neck: Present: normal ROM - Respiratory Respiratory: bilateral: CTA - Cardiovascular Rhythm: regular Heart sounds: normal: S1, S2 - Gastrointestinal General gastrointestinal: Present: soft - Integumentary Integumentary: Present: normal turgor - Musculoskeletal Musculoskeletal: Present: gait normal - Psychiatric Psychiatric: Present: A&O x's 3, appropriate affect, intact judgment & insight - Additional findings Additional findings: Breast Exam: BRA: 40C Inspection: bilateral post op changes, grade 2 ptosis bilateral Patient: Right breast: Postop changes, no dominant masses or nodules of concern on multi- positional exam, well healed scar recent biopsy Right axilla: No adenopathy of concern Left breast: Post surgical changes, some increased nodularity at the 12 o'clock position no other dominant masses or nodules of concern Left axilla: No adenopathy of concern Assessment and Plan Assessment: Impression: Patient status post right breast lumpectomy/radiation therapy/hormone therapy for stage IA invasive ductal carcinoma Recent bilateral mammogram Core biopsy right breast on 96 felt to be discordant recent open biopsy benign left breast core biopsy invasive ductal carcinoma Plan: Patient has been scheduled for a knee replacement which we will recommend be deferred until treatment for the breast cancer Case presented at tumor board 06-05-23 Left breast needle localization lumpectomy, possible onco plastic tissue transfer, left sentinel node injection, left sentinel node biopsy, possible left axillary dissection Bilateral breast MRI reviewed wtih the patient 05-30-[address] Gonzales Cc: Dr. Gonzales
[2023-06-28 15:24] VITALS: BP 148/86; PULSE 77; RESP 17; TEMP 98.7
== END ==
LOC: WWCWWP 14:35
PROVIDERS: ATTEND Surgery
DX: Z12.31 Encounter for screening mammogram for malignant neoplasm of breast (principal); C50.911 Malignant neoplasm of unspecified site of right female breast; C50.912 Malignant neoplasm of unspecified site of left female breast; Z85.3 Personal history of malignant neoplasm of breast; N60.92 Unspecified benign mammary dysplasia of left breast; Z17.0 Estrogen receptor positive status [ER+]; Z79.811 Long term (current) use of aromatase inhibitors; Z92.3 Personal history of irradiation; Z88.1 Allergy status to other antibiotic agents; Z88.8 Allergy status to other drugs, medicaments and biological substances; Z87.891 Personal history of nicotine dependence

== ENCOUNTER 2023-07-02 07:13 | Day surgery (SDC) | payer MEDICARE ==
[~2023-07-02 07:13] MED LIST changes: -BUPIVACAINE (PF) 0.5% 30 ML VIAL INTRAARTIC ONE; +DEXAMETHASONE SOD PHOSPHATE 4 MG/ML 1 ML VIAL IV ONE; +HEPARIN SODIUM,PORCINE/PF 5,000 UNIT/0.5 ML SYRINGE SQ PRN; -HYDROmorphone 0.5 MG/0.5 ML SYRINGE IVP PRN; -LACTATED RINGERS 1,000 ML IV ONE; -LIDOCAINE 1% (10MG/ML) FOR IV START INTRADERMA PRN; -LIDOCAINE 1% INJ 10MG/ML (20 ML MDV) ONE; -MIDAZOLAM 2 MG/2 ML VIAL ONE; -PROPOFOL 10 MG/ML 20 ML VIAL IV ONE; -Pre Op ABX Message 1 EACH MISC MISCELLANE ONE; -SODIUM CHLORIDE 0.9% 50 ML with ceFAZolin 2,000 MG IV ONE; -SUCCINYLCHOLINE CHLORIDE 100 MG/5 ML SYR IV ONE; -ePHEDrine 50 MG/ML 1 ML AMP ONE; -fentaNYL (PF) 50 MCG/ML 2 ML AMP ONE; -traMADol 50 MG TAB ONE; -traMADol 50 MG TAB PO ONE
[2023-07-02] MEDS ORDERED: ALPRAZolam 0.25 MG TAB ONE (07:34)
--- NOTE | 2023-07-02 11:28 | P.NAPBC ---
NAPBC Queries - NAPBC Queries Was patient's case review presented at [facility] tumor board? If no, comment.: Yes Was patient's pathology reviewed at [facility]? If no, comment.: Yes Was breast conservation surgery offered? If no, comment.: Yes Was sentinel node biopsy offered? If no, comment.: Yes Was diagnosis confirmed by percutaneous core biopsy? If no, comment.: Yes Is patient mastectomy patient?: No Was a preop referral to reconstructive surgeon offered?: No Clinical Stage: stage 1 left breast invasive ductal cancer
[2023-07-02] MEDS ORDERED: fentaNYL (PF) 50 MCG/ML 2 ML AMP ONE (11:51)
[2023-07-02] MEDS ORDERED: MIDAZOLAM 2 MG/2 ML VIAL ONE (11:51)
[2023-07-02] MEDS ORDERED: PROPOFOL 10 MG/ML 20 ML VIAL IV ONE (11:51)
[2023-07-02] MEDS ORDERED: ePHEDrine 50 MG/ML 1 ML VIAL ONE (11:51)
[2023-07-02] MEDS ORDERED: SUCCINYLCHOLINE CHLORIDE 200 MG/10 ML VIAL IV ONE (11:51)
[2023-07-02] MEDS ORDERED: LIDOCAINE 1% INJ 10MG/ML (20 ML MDV) ONE (11:51)
--- NOTE | 2023-07-02 12:03 | P.NAPBC ---
NAPBC Queries - NAPBC Queries Was patient's case review presented at [facility] tumor board? If no, comment.: Yes Was patient's pathology reviewed at [facility]? If no, comment.: Yes Was breast conservation surgery offered? If no, comment.: Yes Was sentinel node biopsy offered? If no, comment.: Yes Was diagnosis confirmed by percutaneous core biopsy? If no, comment.: Yes Is patient mastectomy patient?: No Was a preop referral to reconstructive surgeon offered?: No Clinical Stage: left breast stage 1 invasive ductal cancer
[2023-07-02] MEDS ORDERED: METHYLENE BLUE 50 MG/10 ML AMPUL INJ ONE (12:10)
--- NOTE | 2023-07-02 13:39 | P.OP ---
Date of Procedure: 07/02/23 Preoperative Diagnosis: Left breast invasive ductal carcinoma Postoperative Diagnosis: Same Procedure(s) Performed: Left breast needle localization lumpectomy, lymphatic mapping with methylene blue, sentinel node biopsy/deep axillary node dissection Anesthesia: ANGEL Surgeon: Clarissa Caldwell Estimated Blood Loss (ml): 5 IV fluids (ml): 500 Pathology: other (Breast tissue) Condition: stable Disposition: same day Indications for Procedure: Left breast invasive ductal carcinoma Operative Findings: Very dense breast tissue Description of Procedure: Procedure: Needle localization left breast lumpectomy for invasive ductal carcinoma Lymphatic mapping with methylene blue deep sentinel node resection The patient was seen in the radiology Department preoperatively. Needle localization of the tumor in the left breast was performed. Additionally radiotracer was injected in the periareolar area. The patient was brought to the operative suite. Following induction of anesthesia the axilla was interrogated. Minimal radioactivity was identified in the axilla. Therefore 5 mL of half percent methylene blue was injected in the periareolar area and the breast was massaged for 5 minutes. Following this the left breast and axilla were prepped and draped in a sterile fashion. An axillary incision was made. This was carried through the skin and subcutaneous tissue into the axillary tissue. Using the neoprobe minimal radioactivity was identified. No blue lymph nodes were identified. Palpation revealed a deep palpable node. This was grasped using an Allis clamp. This was excised using the Harmonic scalpel. After we had been excised interrogation with the neoprobe revealed a 10 second count of 284. The background count was minimal. No other palpable adenopathy, blue lymph nodes, or radioactive lymph nodes of concern were identified. After assured that hemostasis was attained the wound was well irrigated. The tissues were closed using 3-0 Vicryl suture. The location of the incision was in proximity to the needle localization wire which had been placed for the tumor. Therefore the same incision was used to remove the tumor. Dissection was performed in just under the skin removed to localize the needle. This was brought into the area of concern. The tissues were grasped using an Allis clamp. Dissection was performed circumferentially around the area of the needle. The anterior dissection was just under the skin and the posterior dissection was onto the muscle of the chest wall. The specimen was removed. It was painted for orientation. Radiograph of the specimen was personally reviewed with Dr. Nolan was felt that the area of concern had been removed. Additional tissue was removed. This was painted for orientation. Additional tissue was removed superiorly and this was painted for orientation as well. After assured that hemostasis was attained titanium clips were placed in the cavity. The deep tissues were closed using 3-0 Vicryl suture. The subcutaneous tissue was closed using 3-0 Vicryl suture. The skin was closed using 4-0 Monocryl. The patient tolerated the procedure in stable condition. All instrument and sponge counts were correct at the end of the case.
--- NOTE | 2023-07-02 13:41 | P.DS ---
Providers Attending physician: Clarissa Caldwell Primary care physician: Nieves Gonzales Plan - Discharge Summary Discharge Rx Participant: Yes New Discharge Prescriptions: New traMADol HCL 50 mg PO Q6H 3 Days #12 tab No Action traMADol HCL [Ultram] 50 mg PO Q4-6H PRN PRN Reason: Pain Metoprolol Tartrate [Lopressor] 100 mg PO BID Levothyroxine Sodium [Synthroid] 75 mcg PO DAILY Famotidine 40 mg PO DAILY Vitamin E (Dl,Tocopheryl Acet) [Vitamin E] 1,000 unit PO DAILY Vitamin B Complex 1 each PO DAILY Milk Thistle 150 mg PO DAILY Cholecalciferol (Vitamin D3) [Vitamin D3] 2,000 unit PO DAILY Anastrozole [Arimidex] 1 mg PO DAILY Rosuvastatin [Crestor] 5 mg PO QAM Calcium Carbonate [Calcium] 600 mg PO BID hydroCHLOROthiazide 25 mg PO QAM Ubidecarenone [Co Q-10] 30 mg PO DAILY Fexofenadine HCl [Sandie Allergy] 60 mg PO DAILY Discharge Medication List Cholecalciferol (Vitamin D3) [Vitamin D3] 2,000 unit PO DAILY 06/11/19 [History] Famotidine 40 mg PO DAILY 06/11/19 [History] Levothyroxine Sodium [Synthroid] 75 mcg PO DAILY 06/11/19 [History] Metoprolol Tartrate [Lopressor] 100 mg PO BID 06/11/19 [History] Milk Thistle 150 mg PO DAILY 06/11/19 [History] Vitamin B Complex 1 each PO DAILY 06/11/19 [History] Vitamin E (Dl,Tocopheryl Acet) [Vitamin E] 1,000 unit PO DAILY 06/11/19 [History] traMADol HCL [Ultram] 50 mg PO Q4-6H PRN 06/11/19 [History] Anastrozole [Arimidex] 1 mg PO DAILY 12/03/19 [History] Rosuvastatin [Crestor] 5 mg PO QAM 03/18/20 [History] Calcium Carbonate [Calcium] 600 mg PO BID 06/22/20 [History] hydroCHLOROthiazide 25 mg PO QAM 07/14/20 [History] Fexofenadine HCl [Sandie Allergy] 60 mg PO DAILY 10/18/22 [History] Ubidecarenone [Co Q-10] 30 mg PO DAILY 03/22/23 [History] traMADol HCL 50 mg PO Q6H 3 Days #12 tab 07/02/23 [Rx] Follow up Appointment(s)/Referral(s): Clarissa Caldwell MD [STAFF PHYSICIAN] - 07/11/23 11:40 am Activity/Diet/Wound Care/Special Instructions: Do not drive for 24 hours from discharge or if taking narcotic pain medicine May shower after 48 hours wear bra at all times Discharge Disposition: HOME SELF-CARE
[2023-07-02] MEDS: HYDROmorphone 0.5 MG/0.5 ML SYRINGE IVP PRN ×2 (14:14→14:23)
[2023-07-02 14:15] VITALS: TEMP 98.5
[2023-07-02 15:27] VITALS: BP 125/68; PULSE 60; RESP 16
--- NOTE | 2023-07-02 15:50 | NM ---
EXAMINATION TYPE: NM sentinel node injection DATE OF EXAM: 07/02/2023 COMPARISON: NONE CLINICAL INDICATION: Female, 68 years old with history of LEFT BREAST CA; TECHNIQUE AND FINDINGS: The procedure of sentinel lymph node injection was explained to the patient. The benefits, alternatives, and risks were discussed. An informed consent was then obtained. Overlying skin is cleaned with sterile alcohol. Following this, 469 uCi Tc99m Tilmanocept was inject ed in the upper outer aspect of the left nipple intradermally. The patient tolerated the procedure well without any immediate complication. The patient was kept in the radiology department for short stay after the procedure and then taken to surgery for surgical p rocedure what is presumed intraoperative gamma probe will be used for sentinel lymph node detection. IMPRESSION: Left breast radiotracer injection for sentinel node localization as above.
--- NOTE | 2023-07-15 09:46 | MM ---
Pathology Description: Approach: Lateral to Medial Needle Type: 7 cm Kopan The procedure of needle localization with wire placement and than surgical excision was explained to the patient. Benefits, alternatives, and risks were discussed. An informed consent was then obtained. The shortest pathway for procedure was chosen. Shortest pathway was a lateral approach. The overlying skin was prepped and draped in usual sterile fashion. Lidocaine was used as anesthetic into the skin and subcutaneous tissue up to the level of area of concern. A 7 cm Kopans needle was used. It was placed via a lateral approach under mammographic guidance. Subsequent 90 degrees mammogram show the needle to be in satisfactory position relative to the targeted area. At this point, wire was placed and the needle was withdrawn. The wire was fixed to patient's skin. Images were marked for surgeon. The patient tolerated the procedure well without any immediate complication. The patient was kept in the radiology department for short stay after the procedure and then taken to surgery for surgical excision. Targeted mass, clip, and wire are identified in specimen mammogram. The patient was kept in hospital for short stay after the procedure and then discharged home in stable condition. IMPRESSION: Successful, uncomplicated needle localization with wire placement and surgical excision of biopsy-proven left breast cancer. Full pathology results to follow. Pathology Results: Result: Malignant, Invasive ductal carcinoma. A. LEFT SENTINEL NODE #1, BIOPSY: Lymph node negative for metastasis. CK7 and CHUCHO immunostains performed on blocks A1 and A2 are confirmatory (controls appropriate). B. LEFT BREAST, NEW MEDIAL MARGIN: Benign breast with fibrocystic changes. C. LEFT BREAST, NEW SUPERIOR MARGIN: Benign fibroadipose tissue. D. LEFT BREAST, LUMPECTOMY: Invasive moderately differentiated ductal carcinoma (Grade 2) with focal micropapillary features, margins negative. See Surgical Pathology Cancer Case Summary. Overall Assessment: Malignant Management: Surgical Consultation of the left breast. Electronically signed and approved by: North Nolan M.D. Radiologist
== END 2023-07-02 15:50 | disposition home or self-care (01) ==
LOC: OR 07:13
PROVIDERS: ATTEND Surgery
DX: C50.412 Malignant neoplasm of upper-outer quadrant of left female breast (principal); N60.12 Diffuse cystic mastopathy of left breast; I83.90 Asymptomatic varicose veins of unspecified lower extremity; F10.90 Alcohol use, unspecified, uncomplicated; I10 Essential (primary) hypertension; E78.5 Hyperlipidemia, unspecified; K21.9 Gastro-esophageal reflux disease without esophagitis; E03.9 Hypothyroidism, unspecified; Z79.890 Hormone replacement therapy; Z91.041 Radiographic dye allergy status; Z79.899 Other long term (current) drug therapy; Z98.51 Tubal ligation status; Z88.8 Allergy status to other drugs, medicaments and biological substances; Z98.890 Other specified postprocedural states; Z85.3 Personal history of malignant neoplasm of breast
CPT/HCPCS: 19302; 38900; 88342; 88307; 88341; 76098; 19281; 38792; C1819; A9520; J2250; J0330; J1100; J0690; J2405; J2001; J3010; J2704; Q9968; J1170; J1644

== ENCOUNTER → 2023-07-11 | Outpatient (CLI) | payer MEDICARE ==
--- NOTE | 2023-07-11 11:51 | P.PN ---
Progress Note - Text Progress Note Date: 07/11/23 Maria Eugenia is a 68 year old female status post left breast lumpectomy and SNB on 07-02-23. Her margins were (-) and node (-). Tumor size 10mm. tolerated the surgery well but is still sore at the site. Examination: Lungs: Clear Heart: Regular rate and rhythm Incision: Clean and dry Plan: Follow up with medical oncology Follow-up radiation oncology Follow-up here in 4 months CC: Dr. Gonzales
[2023-07-11 12:10] VITALS: BP 143/89; PULSE 68; RESP 16; TEMP 98.3
== END ==
LOC: WWCWWP 11:37
PROVIDERS: ATTEND Surgery
DX: Z90.12 Acquired absence of left breast and nipple (principal); I49.9 Cardiac arrhythmia, unspecified; Z88.1 Allergy status to other antibiotic agents; Z79.899 Other long term (current) drug therapy; Z87.891 Personal history of nicotine dependence; Z88.3 Allergy status to other anti-infective agents

== ENCOUNTER → 2023-10-14 | Outpatient (CLI) | payer MEDICARE ==
[2023-10-14 12:38] LABS: INR 0.9 (<1.2); Partial Thromboplastin Time 23.2 sec (22.0-30.0); Prothrombin Time 10.1 sec (10.0-12.5)
[2023-10-14 16:09] LABS: ALT 29 U/L (8-44); AST 23 U/L (13-35); Albumin 4.5 g/dL (3.8-4.9); Albumin/Globulin Ratio 2.37 Ratio (1.60-3.17); Alkaline Phosphatase 61 U/L (41-126); Blood Urea Nitrogen 18.9 mg/dL (9.0-27.0); Calcium 9.7 mg/dL (8.7-10.3); Carbon Dioxide 25.6 mmol/L (21.6-31.8); Chloride 102 mmol/L (96-109); Globulin 1.9 g/dL (1.6-3.3); Glucose 92 mg/dL (70-110); Potassium 4.1 mmol/L (3.5-5.5); Sodium 138 mmol/L (135-145); Total Bilirubin 0.3 mg/dL (0.3-1.2); Total Protein 6.4 g/dL (6.2-8.2)
[2023-10-14 16:14] LABS: HCT 44.7 % (37.2-46.3); HGB 14.7 g/dL (12.0-15.0); MCH 31.3 pg (27.0-32.0); MCHC 32.9 g/dL (32.0-37.0); MCV 95.3 FL (80.0-97.0); Mean Platelet Volume 10.5 FL (9.5-12.2); NRBC Per 100 WBC 0 X 10*3/uL (0.00-0.01); Platelet Count 272 X 10*3/uL (140-440); RBC 4.69 X 10*6/uL (4.10-5.20); RDW 12.6 % (11.5-14.5); WBC 8.01 X 10*3/uL (4.50-10.00)
== END | disposition home or self-care (01) ==
LOC: LABPAT 10:27
PROVIDERS: ATTEND Orthopaedic Surgery
DX: Z01.812 Encounter for preprocedural laboratory examination (principal); I25.2 Old myocardial infarction; I51.7 Cardiomegaly
CPT/HCPCS: 36415; 80053; 85027; 85610; 85730; 87070

== ENCOUNTER → 2023-10-16 | Outpatient (CLI) | payer MEDICARE ==
--- NOTE | 2023-10-16 11:33 | MM ---
Reason for Exam: Hx of breast cancer, conservation therapy. Last screening mammogram was performed 7 month(s) ago. Patient History: Menarche at age 12. Patient has no children. Postmenopausal. Breast cancer, right, age 64. Breast cancer, left, age 68. Breast cancer, left, age 68. Previous chest radiation therapy at age 64. Hormonal Contraceptives for 11 years from age 19 until age 30. 07/02/2023, Lumpectomy on the Left side. 07/02/2023, Malignant MG pre op needle loc LT on the left side. 05/08/2023, Malignant US biopsy breast VAD LT on the left side. 04/16/2023, Benign MG pre op needle loc RT on the right side. 04/03/2023, US biopsy breast VAD RT on the Right side. Excisional Biopsy on the Right side. 06/2020, Reduction on the Left side. 08/12/2019, Lumpectomy on the Right side. 08/12/2019, Malignant Core Biopsy on the right side. 08/12/2019, Malignant Core Biopsy on the left side. 08/27/2000, Benign Excisional Biopsy on the left side. 2019, Radiation Therapy on the right side. Prior Study Comparison: 04/03/2023 Right MG diagnostic mammo RT wo CAD, [facility]. 04/26/2023 Left MG 3D diag mammo w/cad LT, [facility]. 05/08/2023 Left MG diagnostic mammo LT wo CAD., [facility]. Tissue Density: Right: There are scattered areas of fibroglandular density. Findings: Analyzed By CAD. Right breast biopsy clip. Post surgical changes right breast with surgical clips in place. Multiple benign appearing calcifications are present. No new suspicious masses, calcifications or distortions. Overall Assessment: Benign, BI-RAD 2 Management: Screening Mammogram of both breasts in 1 year. Results were given to the patient verbally at the time of exam. Patient should continue monthly self-breast exams. A clinical breast exam by your physician is recommended on an annual basis. This exam should not preclude additional follow-up of suspicious palpable abnormalities. Note on Eliza scores and lifetime risk: 1. A Eliza score greater than 3% is considered moderate risk. If this is the case, consider specialist referral to assess eligibility for a risk reducing agent. 2. If overall lifetime risk for the development of breast cancer is 20% or higher, the patient may qualify for future screening with alternating mammogram and breast MRI. Electronically signed and approved by: Pablo Amaya DO
--- NOTE | 2023-10-16 22:37 | BD ---
EXAMINATION TYPE: Axial Bone Density DATE OF EXAM: 10/16/2023 CLINICAL HISTORY: 68 years old Female. ICD-10 CODE: M85.9 OSTEOPENIA Height: 67 Weight: 184 FRAX RISK QUESTIONS: Alcohol (3 or more units per day): yes History of Fracture in Adulthood: yes Secondary Osteoporosis: no RISK FACTORS HISTORY OF: Surgery to Spine/Hip(right/left)/Wrist (right/left): no MEDICATIONS: Thyroid Medications: yes Which medication: Levothyroxine How Lon+ years Osteoporosis Medications: no EXAM MEASUREMENTS: Bone mineral densitometry was performed using the [employer] System. Bone mineral density as measured about the Lumbar spine is: ----- L1-L4(G/cm2): 1.034 T Score Values are as follows: ----- L1: -2.1 ----- L2: -1.9 ----- L3: -1.0 ----- L4: -0.2 ----- L1-L4: -1.2 Z Score Values are as follows: ----- L1: -1.1 ----- L2: -0.9 ----- L3: 0.0 ----- L4: 0.8 ----- L1-L4: -0.2 Bone mineral density has: Decreased -0.9% since study of: 10/09/2021 Bone mineral density about the R hip (g/cm2): 0.884 Bone mineral density about the L hip (g/cm2): 0.840 T Score values are as follows: -----R Neck: -1.5 -----L Neck: -2.0 -----R Total: -1.0 -----L Total: -1.3 Z Score values are as follows: -----R Neck: -0.3 -----L Neck: -0.7 -----R Total: 0.0 -----L Total: -0.4 Bone mineral density has: Increased 0.3% since study of: 10/09/2021 FRAX%s: The graph provided illustrates a 18.0% chance for a major osteoporotic fx and a 3.1% chance f or the hips probability for fx in 10 years time. IMPRESSION: Osteopenia (T Score between -2.5 and -1). There is slightly increased risk of fracture and the patient may be considered for treatment. Re-Screen 2-5 years. NOTE: T-SCORE=SD OF THE YOUNG ADULT MEAN.
== END | disposition home or self-care (01) ==
LOC: RADMAMWWP 10:55
PROVIDERS: ATTEND Internal Medicine Hematology & Oncology
DX: M85.89 Other specified disorders of bone density and structure, multiple sites (principal); Z78.0 Asymptomatic menopausal state; Z85.3 Personal history of malignant neoplasm of breast; Z71.3 Dietary counseling and surveillance; C50.411 Malignant neoplasm of upper-outer quadrant of right female breast; D24.2 Benign neoplasm of left breast
CPT/HCPCS: 77061; 77065; 77080

== ENCOUNTER → 2023-10-18 | Outpatient (CLI) | payer MEDICARE ==
[2023-10-18 09:32] VITALS: BP 148/82; PULSE 64; RESP 15; TEMP 98.2
--- NOTE | 2023-10-18 09:54 | P.PN ---
Subjective Progress Note Date: 10/18/23 bilateral breast cancer: right 07-17-19 stage I left invasive ductal cancer 05-08-2023; stage I Subjective Progress Note Date: 06-28-23 Principal diagnosis: new diagnosis left breast IDC stage IA right breast invasive ductal cancer [id number]; dx. 07-10-19 Right breast stage IA invasive ductal carcinoma, lumpectomy done July 2019, patient contralateral symmetry procedure of the left breast mammoplasty performed in June 2020 05-17-23 Stage IA right breast cancer Victorina is a 67-year-old white female status post right breast lumpectomy and sentinel node biopsy done 08/12/2019. She also had a left breast biopsy which revealed focal atypical ductal hyperplasia. She finished her radiation treatment on October 14. She also saw a medical oncologist and is now on Anestrazole. She is planning of some hip and knee discomfort, she is following with orthopedic surgery, she was recommended to have a knee replacement on the left side. She is not complaining of any hot flashes. She had a bilateral mammogram performed on this was benign BIRADS 2. She is not complaining of any new lumps masses or nodules of concern in either breast. Note Medical oncology Dr. Pak 03-30-[address] Calderon of 10-10-22 revealed patient was noted to be doing well with no evidence of recurrent cancer. Of importance is the fact of 2019 she underwent a CAT scan of the chest which revealed incomplete resolution of posterior basilar consolidation and/or atelectasis. The anterior upper lung consolidation. Could not exclude pneumonia or infectious etiology but suspect it may be related to her breast radiation treatment and correlation clinically was recommended. She had a follow up CT scan on June 21, 2020 which revealed improved pleural thickening right upper lobe and interstitial changes from radiation therapy to the right breast were noted. This is also being followed by radiation oncology. She is not complaining of any new lumps masses or nodules of concern in either breast. 04-11-23 The patient on 03-20-23 had a bilateral mammogram done, this revealed a new nodule in the right breast. Nothing of concern noted in the left breast. This led to a right breast diagnostic mammogram and ultrasound on 03-22-23. These led to a right breast ultrasound core biopsy on 04-03-23. The core biopsy was felt to be discordant from radiolsoy and needle localization and resection recommended. This was reviewed with Dr. Lee. Open resection in the operating room benign. She is continuing on her anastrozole. She is scheduled at this time for total knee replacement on the left side. He does not feel any new lumps masses or nodules of concern in either breast. She is status post right breast lumpectomy and sentinel node biopsy done on . This was for a stage I invasive ductal carcinoma. She was treated with radiation therapy which he completed on 10/15/2019. She is also on anastrozole. She did not receive any chemotherapy. 05-17-23 The patient was seen by Dr. Pak who was concerned about an are in the left breast. Additional x-ray and ultrasound were done, biopsy + IDC. She had a diagnostic mammogram performed on this was felt to be BIRADS 0 and was followed by an ultrasound on the same day. On the ultrasound a 1.5 cm area was identified and it was unable to determine if this was focal scar tissue were suspicious lesion. Therefore core biopsy was obtained. The core biopsy of this site was done on [id number]. This was G2 ER+RI+ HER-2/isa negative. She tolerated the biopsy without difficulty. MRI performed on : Enhancement in the right breast was identified which was felt to be related to fat necrosis or seromas she has had recent right breast surgery No lesions of concern noted in the left breast genetic testing (-) Patient was felt to be medically optimized for surgery by Dr. Gonzales 10-18-23 Breast lumpectomy and sentinel node biopsy on 08-12-2023 a grade 2 DCIS invasive ductal carcinoma 3 mm, DCIS, negative sentinel nodes, margins were negative for DCIS but close, this was ER/RI positive, HER2 negative. Underwent on 52 left breast lumpectomy, pathology revealed a 10 mm invasive ductal carcinoma nodes negative. Her margins were negative. She completed adjuvant radiation therapy. Note medical oncology 09-10-2023 reviewed there was no benefit from chemotherapy secondary to her Oncotype score and patient was put on exemestane Note radiation oncology 10-14-2023 reviewed the patient completed radiation therapy of the left breast on 09-17-2023 Underwent a right breast diagnostic mammogram on 10-16-2023 which was benign BI- RADS 2 Her left knee is scheduled to be replaced on October. She is not concerned about any new lumps masses or nodules in either breast. Family history: Father: Esophageal cancer Hormonal history: Menarche: 13 G2 Ab2, no children, tubal ligation at 30 Menopause: 43 control pills: 15 years Hormones: None Surgical history: 1. Tubal ligation 2. Bunionectomy 3. Right breast lumpectomy and sentinel node biopsy, left breast biopsy 4. Left breast reduction mammoplasty 5. left knee arthroscopic surgery Medical history: 1. Varicose veins 2. back pain Social history: Smoke: Negative Alcohol: Wine daily Drugs: Negative Review of systems: Constitutional: Negative HEENT: Negative Ears: Tinnitus Cardiovascular: Hypertension Respiratory: Negative GI: Negative : Status post tubal ligation Musculoskeletal: Arthritis; back pain Neurologic: Negative Psychiatric: Negative Objective - Vital Signs Vital signs: Vital Signs Temp 98.2 F 10/18/23 09:01 Pulse 64 10/18/23 09:01 Resp 15 10/18/23 09:01 BP 148/82 10/18/23 09:01 Pulse Ox 96 10/18/23 09:01 FiO2 Intake & Output 10/17/23 10/18/23 10/18/23 18:59 06:59 18:59 Weight 83.915 kg - Constitutional General appearance: Present: cooperative - EENT Eyes: Present: EOMI ENT: Present: hearing grossly normal - Neck Neck: Present: normal ROM - Respiratory Respiratory: bilateral: CTA - Cardiovascular Heart sounds: normal: S1, S2 - Integumentary Integumentary: Present: normal turgor - Psychiatric Psychiatric: Present: A&O x's 3, appropriate affect, intact judgment & insight - Additional findings Additional findings: Breast Exam: BRA: 40C Inspection: bilateral post op changes, grade 2 ptosis bilateral Patient: Right breast: Postop changes, no dominant masses or nodules of concern on multi- positional exam, well healed scar recent biopsy, small seroma right breast upper outer aspect smaller as per patinet Right axilla: No adenopathy of concern Left breast: Post surgical changes, no dominate masses or nodules of concern Left axilla: No adenopathy of concern Assessment and Plan Assessment: Impression: Patient status post right breast lumpectomy/radiation therapy/hormone therapy for stage IA invasive ductal carcinoma; she subsequently underwent a right breast open biopsy for discordant core biopsy which was benign left breast Lumpectomy sentinel node biopsy Recent right breast mammogram 10-16-23 BIRAD2 Plan: Bilateral mammogram in 6 months with examination at that time The patient is going to have knee replacement in the interim The patient is continuing on exemestane Follow-up medical and radiation oncology Follow-up here sooner any questions or concerns Cc: Dr. Gonzales
== END ==
LOC: WWCWWP 08:35
PROVIDERS: ATTEND Surgery
DX: Z90.89 Acquired absence of other organs (principal); Z88.1 Allergy status to other antibiotic agents; Z87.891 Personal history of nicotine dependence

== ENCOUNTER 2023-11-05 06:14 | Day surgery (SDC) | payer MEDICARE ==
[~2023-11-05 06:14] MED LIST changes: -DEXAMETHASONE SOD PHOSPHATE 4 MG/ML 1 ML VIAL IV ONE; -HEPARIN SODIUM,PORCINE/PF 5,000 UNIT/0.5 ML SYRINGE SQ PRN; -LACTATED RINGERS 1,000 ML IV SCH; -ONDANSETRON 4 MG/2 ML VIAL IVP ONE; +TRANEXAMIC 1,000 MG/100ML-NACL 1,000 MG in SALINE 1 100ML.BAG IVPB PRN
[2023-11-05] MEDS ORDERED: ONDANSETRON 4 MG/2 ML VIAL IVP ONE (06:20)
[2023-11-05] MEDS: LACTATED RINGERS 1,000 ML IV SCH (06:57)
[2023-11-05] MEDS: MELOXICAM 7.5 MG TAB PO PRN (07:15)
[2023-11-05] MEDS: DEXAMETHASONE SOD PHOSPHATE 4 MG/ML 1 ML VIAL IV ONE (07:15)
[2023-11-05] MEDS: GABAPENTIN 300 MG CAP PO PRN (07:15)
[2023-11-05] MEDS: ACETAMINOPHEN TAB 500 MG TAB PO PRN (07:15)
[2023-11-05] MEDS: MIDAZOLAM 2 MG/2 ML VIAL IVP ONE (07:26)
[2023-11-05] MEDS ORDERED: ONDANSETRON 4 MG/2 ML VIAL IVP PRN (08:04)
[2023-11-05] MEDS ORDERED: HYDROmorphone 0.5 MG/0.5 ML SYRINGE IVP PRN ×3 (08:04)
[2023-11-05] MEDS ORDERED: NALOXONE 0.4 MG/ML 1 ML VIAL IV PRN (08:04)
[2023-11-05] MEDS ORDERED: HYDROcodone/APAP 7.5-325MG 1 EACH TAB PO PRN ×2 (08:05)
--- NOTE | 2023-11-05 08:08 | P.ANPRN ---
Procedure Note - Anesthesia - Nerve Block Performed Left iPack Single Time Out Performed: Yes Date of Procedure: 11/05/23 Procedure Start Time: : Procedure Stop Time: : Location of Patient: PreOp Indication: Acute Post-Operative Pain, Analgesia, Requested by Surgeon Sedation Type: Sedate with meaningful contact maintained Preparation: Sterile Prep Position: Right Lateral Catheter: None Needle Types: Pajunk Needle Gauge: 21 Ultrasound used to visualize needle placement: Yes Ultrasound used to observe medication spread: Yes Injectate: 0.5% Ropivacaine (see comment for volume) (Ropiv 25ml +decadron 4mg) Blood Aspirated: No Pain Paresthesia on Injection Noted: No Resistance on Injection: Normal Image Stored and Saved: Yes Events: Uneventful and Well Tolerated
--- NOTE | 2023-11-05 08:11 | P.ANPRN ---
Procedure Note - Anesthesia - Nerve Block Performed Left Adductor Canal Infusion Time Out Performed: Yes Date of Procedure: 11/05/23 Procedure Start Time: 07:32 Procedure Stop Time: 07:40 Location of Patient: PreOp Indication: Acute Post-Operative Pain, Analgesia, Requested by Surgeon Sedation Type: Sedate with meaningful contact maintained Preparation: Sterile Prep Position: Supine Catheter: Indwelling Needle Types: On-Q Ultrasound used to visualize needle placement: Yes Ultrasound used to observe medication spread: Yes Injectate: 0.5% Ropivacaine (see comment for volume) (Ropiv 20ml +decadron 4mg) Blood Aspirated: No Pain Paresthesia on Injection Noted: No Resistance on Injection: Normal Image Stored and Saved: Yes Events: Uneventful and Well Tolerated
[2023-11-05] MEDS ORDERED: SODIUM CHLORIDE 0.9% 1,000 ML IV SCH (08:15)
[2023-11-05] MEDS ORDERED: DEXAMETHASONE SOD PHOSPHATE 4 MG/ML 1 ML VIAL ONE (09:16)
[2023-11-05] MEDS ORDERED: TRANEXAMIC 1,000 MG/100ML-NACL PREMIX BAG ONE (09:16)
[2023-11-05] MEDS ORDERED: SUCCINYLCHOLINE CHLORIDE 200 MG/10 ML VIAL IV ONE (09:16)
[2023-11-05] MEDS ORDERED: NEOSTIGMINE 1 MG/ML 10 ML VIAL ONE (09:16)
[2023-11-05] MEDS ORDERED: PROPOFOL 10 MG/ML 20 ML VIAL IV ONE (09:16)
[2023-11-05] MEDS ORDERED: ROCURONIUM 10 MG/ML (5 ML VIAL) IV ONE (09:16)
[2023-11-05] MEDS ORDERED: MIDAZOLAM 2 MG/2 ML VIAL ONE (09:16)
[2023-11-05] MEDS ORDERED: ROPIVACAINE 5 MG/ML 30 ML VIAL ONE (09:16)
[2023-11-05] MEDS ORDERED: LIDOCAINE 1% INJ 10MG/ML (20 ML MDV) ONE (09:16)
[2023-11-05] MEDS ORDERED: GLYCOPYRROLATE 0.2 MG/ML 2 ML VIAL ONE (09:16)
[2023-11-05] MEDS ORDERED: fentaNYL (PF) 50 MCG/ML 2 ML AMP ONE (09:16)
[2023-11-05] MEDS: ceFAZolin 1,000 MG in SODIUM CHLORIDE 0.9% 1,000 ML IRRIGATION ONE (09:45)
--- NOTE | 2023-11-05 10:28 | P.OP ---
Date of Procedure: 11/05/23 Preoperative Diagnosis: severe osteoarthritis left knee Postoperative Diagnosis: severe osteoarthritis left knee Procedure(s) Performed: left total knee Implants: [employer]hew Journey II CR Oxinium cruciate retaining femoral component size 5, left [employer] Journey nonporous tibial baseplate size 4, left [employer] Journey II, XLPE Deep Dished articular insert, size 11 mm, Size 3-4, left [employer] Journey Janessa II resurfacing patellar component, oval, 29 mm All components were cemented using Palacos R bone cement The articulation is Oxinium on polyethylene Anesthesia: ANGEL Surgeon: [employer] Teacher #1: Karyn Wilde Estimated Blood Loss (ml): 30 Pathology: none sent Condition: stable Disposition: PACU Indications for Procedure: The patient's knee is end-stage, and conservative management has failed. The operation of knee replacement has been discussed at length in the office, as well as potential risks and complications. These are inclusive of, but not limited to: Infection, bleeding, scarring, discomfort, stiffness, blood vessel and nerve damage, need for further surgery, failure to relieve symptoms, persistence, recurrence, or worsening of problems, loosening, dislocation, wear, blood clot, pulmonary embolism, , gait dysfunction, stiffness, and other risks as discussed in the office. Patient elects to proceed and the consent form has been signed. Operative Findings: the operative findings are consistent with severe osteoarthritis of the left knee Description of Procedure: The patient was seen in the preoperative area, the consent was reviewed and the operative site was marked with a skin marker. The patient verified the procedure and the operative site. An adductor canal pain catheter and an iPACK block were placed by anesthesia in the preoperative area. The patient was then brought to the operating room and positioned on the operating room table in the supine position. Preoperative antibiotics and a gram of tranexamic acid were given intravenously. A general anesthetic was administered by the anesthesia department. Care was taken to make sure that all pressure points were adequ ately padded. A tourniquet was placed on the upper thigh and the lower extremity was prepped with ChloraPrep and draped in usual sterile fashion. A universal time-out was then performed which confirmed the patient's name, surgical site, ALLERGIES, and consent. The lower extremity was then exsanguinated and tourniquet was inflated to 250 mmHg. A standard anterior midline approach to the knee was performed. The skin and subcutaneous tissue were sharply dissected down to the patellar tendon. A medial parapatellar arthrotomy was then performed. The knee was then extended, the patellar was everted, and the knee was flexed. The infra-patellar fat pad was removed in order to enhance exposure. The anterior horns of both menisci were excised, and a release was performed to the posterior medial aspect of the knee. On gross visual inspection, there was complete loss of articular cartilage in the medial and patellofemoral joint spaces. There was also significant cartilage damage in the lateral compartment. There were multiple periarticular osteophytes globally about the knee which were then removed with a Ronguer. The femoral canal was then opened with the 9.5 mm intramedullary drill. The 8 mm intramedullary marko was then inserted into the femoral canal with the distal femoral cutting guide set for 5 of valgus. The distal femoral cutting block was then pinned in place. The intramedullary marko was then removed, and the distal femur was then cut. The cutting block was then removed and the cut was checked for symmetry. The resected bone was then measured to confirm the appropriate distal femoral resection. Next, the sizing guide was then placed and set for 3 external rotation based off of the epicondylar axis and Calvert's line. Pins were then placed and the drill holes, and the femur was sized with the sizing stylus. The pins were then removed, and the sizing guide was then removed. The spikes of the appropriate size femoral block was then placed into the predrilled holes, and malleted into place. Two 45 mm pins were then placed into the fixation holes on the cutting block. An donavon wing was then used to ensure there would be no notching with the anterior cut. The anterior condyles were cut without notching. The anterior chord cut was then performed, followed by the posterior cut, posterior chamfer cut, and the anterior chamfer cut. The collateral ligaments were protected during the entire process. The cutting block was then removed. Any remaining bone and osteophytes were removed from the femur with a Ronguer. Attention was then directed to the tibia. The remaining ACL was removed with a Ronguer, and the tibia was then gently subluxed forward with a large bent knee retractor. Any remaining menisci were excised. The posterior lateral corner was cauterized in order to coagulate the lateral geniculate artery. The extra medullary tibial cutting guide was then placed, set for the appropriate rotation, slope, and depth of resection. The proximal tibia cutting guide was then pinned in place. Proximal tibia was then cut and sized. A curved osteotome was then used to remove any posterior osteophytes from the distal femur. The femoral trial was placed. A narrow saw blade was then used to remove the anterior intracondylar femoral bone. The CR notch trial was then placed. The tibial trial was placed with the appropriate-sized insert. The knee was able to fully extend and flex to 130 and was stable throughout all range of motion. The knee was then extended and the patella was everted. Patella was then measured, and then using an osteotomy guide, the patella was cut at the appropriate level. The patellar component was sized. The patellar drill guide was placed and the patella was drilled. The patella trial was then placed. The knee was then taken through range of motion with the patella trial and the patella tracked normally using the no thumbs technique. The patella trial was then removed. The knee was then flexed and lug holes were drilled through the femoral trial and the femoral trial was then removed. The tibial was then re- exposed, and the tibial broach guide was then pinned in place after it was set for the appropriate rotation to allow for the most coverage without overhang. The tibia was then reamed and broached. The femoral canal was plugged with autologous bone. The cut surfaces of bone were then irrigated with pulsatile lavage. The knee was also irrigated with Irrisept solution. The components were then opened, the cement was mixed. Cement was placed on the backside of the femoral, tibial, and patellar components. Cement was then applied to the tibial surface and pressurized into the surface using finger pressurization technique. The tibial component was then applied and excess cement was removed after it was impacted securely noted to be flush with the cut surface. In similar fashion, the cement was applied to the cut femoral surface, pressurized and using finger pressurization the component was impacted in place. Excess cement was removed. The polyethylene spacer was then implanted and locked into position. Patellar component was then applied in a similar technique and the patellar clamp was used to hold patella in place while the cement hardened. The knee was held in full extension while the cement hardened. Once the cement had fully hardened, the knee was reinspected. Any other cement extrusion was removed the final range of motion testing showed range of motion from 0-130 with excellent stability, both medial and laterally and appropriate alignment of the leg. Patella tracked normally. After the cemented hardened, the tourniquet was released and hemostasis was obtained. A second gram of transexamic acid was given intravenously. The knee was again irrigated. The knee was again taken through range of motion and found to be stable throughout all range of motion of 0-130, and the patella tracked normally. The fascia was then closed with 0 Vicryl followed by #2 strata fix suture. The subcutaneous tissue was closed with 3-0 Vicryl and 3-0 strata fix. Exofin glue was used for the skin and placed with the knee in flexion. After the glue had dried, and Optafoam silver impregnated dressing was applied. A lightly compressive dressing was applied using web roll and Suman wrap. Patient was then transferred to the stretcher and taken to recovery room in stable condition. Sponge and needle counts were correct. The child nutrition assistant ERIKA Eden was required due the complexity surgery and the need for a skilled surgical physician assistant. She assisted in positioning, draping, retraction, and closure of the wound.
[2023-11-05 11:09] VITALS: TEMP 97
[2023-11-05] MEDS: ROPIVACAINE 1,100 MG, SODIUM CHLORIDE 0.9% 500 ML 330 ML, EMPTY PAIN BALL 1 EACH MISCELLANE PRN (11:15)
[2023-11-05] MEDS: HYDROmorphone 0.5 MG/0.5 ML SYRINGE IVP PRN (11:30)
--- NOTE | 2023-11-05 11:59 | XR ---
EXAMINATION TYPE: XR knee limited LT DATE OF EXAM: 11/05/2023 COMPARISON: NONE TECHNIQUE: Two views submitted HISTORY: Post op FINDINGS: There is a prosthetic knee in near anatomic alignment. There is soft tissue edema and soft tissue e mphysema\Karen. IMPRESSION: 1. Postoperative change. Appears in near-anatomic alignment
[2023-11-05 13:10] VITALS: RESP 16
[2023-11-05 14:32] VITALS: BP 129/72; PULSE 71
== END 2023-11-05 14:32 | disposition home health service (06) ==
LOC: OR 06:14
PROVIDERS: ATTEND Orthopaedic Surgery
DX: M17.12 Unilateral primary osteoarthritis, left knee (principal); G89.18 Other acute postprocedural pain; I10 Essential (primary) hypertension; E78.5 Hyperlipidemia, unspecified; E03.9 Hypothyroidism, unspecified; K21.9 Gastro-esophageal reflux disease without esophagitis; F32.A Depression, unspecified; Z87.891 Personal history of nicotine dependence; Z88.8 Allergy status to other drugs, medicaments and biological substances; Z79.899 Other long term (current) drug therapy
CPT/HCPCS: 27447; 97530; 97161; 64999; 64448; 73560; C1713; C1776; C1751; J2250; J0330; J1100; J2710; J0690 ×2; J2001; J3010; J2795; J2704; J1170

== ENCOUNTER → 2024-04-20 | Outpatient (CLI) | payer MEDICARE ==
--- NOTE | 2024-04-20 10:14 | MM ---
Reason for Exam: Hx of breast cancer, conservation therapy. Last mammogram was performed 1 year(s) and 1 month(s) ago. Patient History: Menarche at age 12. Patient has no children. Postmenopausal. Breast cancer, right, age 64. Breast cancer, left, age 68. Breast cancer, left, age 68. Previous chest radiation therapy at age 64. Hormonal Contraceptives for 11 years from age 19 until age 30. 07/02/2023, Lumpectomy on the Left side. 07/02/2023, Malignant MG pre op needle loc LT on the left side. 05/08/2023, Malignant US biopsy breast VAD LT on the left side. 04/16/2023, Benign MG pre op needle loc RT on the right side. 04/03/2023, US biopsy breast VAD RT on the Right side. Excisional Biopsy on the Right side. 06/2020, Reduction on the Left side. 08/12/2019, Lumpectomy on the Right side. 08/12/2019, Malignant Core Biopsy on the right side. 08/12/2019, Malignant Core Biopsy on the left side. 08/27/2000, Benign Excisional Biopsy on the left side. 2019, Radiation Therapy on the right side. Prior Study Comparison: 06/30/1992 Screening Mammogram, Unknown. 03/26/2014 Right Diagnostic Ultrasound, [facility]. 10/06/2014 Right Diagnostic Mammogram, [facility]. 12/28/2016 Bilateral Screening Mammogram, [facility]. 01/10/2017 Left Diagnostic Ultrasound, [facility]. 08/19/2017 Left Diagnostic Mammogram, [facility]. 08/19/2017 Left Diagnostic Ultrasound, [facility]. 04/29/2018 Bilateral Screening Mammogram, [facility]. 05/25/2019 Bilateral Screening Mammogram, [facility]. 06/04/2019 Bilateral Diagnostic Mammogram, [facility]. 06/04/2019 Bilateral Diagnostic Ultrasound, [facility]. 03/08/2020 Bilateral Diagnostic Mammogram, [facility]. 03/15/2021 Bilateral Diagnostic Mammogram, [facility]. 03/19/2022 Bilateral MG 3D diag mammo w/cad FL[facility], [facility]. 03/20/2023 Bilateral MG 3D screening mammo w/cad, [facility]. 03/22/2023 Right US breast workup limited RT, [facility]. 03/22/2023 Right MG 3D work up w/cad RT, [facility]. 04/03/2023 Right MG diagnostic mammo RT wo CAD, [facility]. 04/26/2023 Left MG 3D diag mammo w/cad LT, [facility]. 04/26/2023 Left US breast limited LT, [facility]. 05/08/2023 Left MG diagnostic mammo LT wo CAD., [facility]. 10/16/2023 Right MG 3D diag mammo w/cad RT, [facility]. Tissue Density: The breasts are heterogeneously dense, which may obscure small masses. Findings: Analyzed By CAD. Pattern appears stable. There are multiple benign-appearing calcifications are present previously. Post lumpectomy changes are within the right breast which appear stable. There is a new lumpectomy site left upper breast. This area has a scar marker. This area also correlates with the palpable change reported by the patient. Suspicious underlying abnormality is not mammographically apparent. Clinical management of this area is recommended. No suspicious groups of microcalcifications, spiculated or lobular masses, architectural distortion or other secondary signs of malignancy are mammographically apparent. Overall Assessment: Probably benign, BI-RAD 3 Management: Diagnostic Mammogram of the left breast in 6 months. A negative mammogram report should not preclude additional follow up of suspicious palpable abnormalities. Patient should continue monthly self breast exam. A clinical breast exam by your physician is recommended on an annual basis and results should be correlated with mammographic findings. Note on Eliza scores and lifetime risk: 1. A Eliza score greater than 3% is considered moderate risk. If this is the case, consider specialist referral to assess eligibility for a risk reducing agent. 2. If overall lifetime risk for the development of breast cancer is 20% or higher, the patient may qualify for future screening with alternating mammogram and breast MRI. [facility], , 04/20/2024 10:12 AM. Electronically signed and approved by: Donal Vernon D.O. Radiologis
== END | disposition home or self-care (01) ==
LOC: RADMAMWWP 09:39
PROVIDERS: ATTEND Surgery
DX: Z85.3 Personal history of malignant neoplasm of breast
CPT/HCPCS: 77062; 77066

== ENCOUNTER → 2024-04-24 | Outpatient (CLI) | payer MEDICARE ==
[2024-04-24 09:47] VITALS: BP 145/84; PULSE 66; RESP 16; TEMP 98.3
--- NOTE | 2024-04-24 10:13 | P.PN ---
Subjective Progress Note Date: 04/24/24 10/18/23 bilateral breast cancer: right 07-17-19 stage I left invasive ductal cancer 05-08-2023; stage I Subjective Progress Note Date: 06-28-23 Principal diagnosis: new diagnosis left breast IDC stage IA right breast invasive ductal cancer [id number]; dx. 07-10-19 Right breast stage IA invasive ductal carcinoma, lumpectomy done July 2019, patient contralateral symmetry procedure of the left breast mammoplasty performed in June 2020 05-17-23 Stage IA right breast cancer Victorina is a 67-year-old white female status post right breast lumpectomy and sentinel node biopsy done 08/12/2019. She also had a left breast biopsy which revealed focal atypical ductal hyperplasia. She finished her radiation treatment on October 14. She also saw a medical oncologist and is now on Anestrazole. She is planning of some hip and knee discomfort, she is following with orthopedic surgery, she was recommended to have a knee replacement on the left side. She is not complaining of any hot flashes. She had a bilateral mammogram performed on this was benign BIRADS 2. She is not complaining of any new lumps masses or nodules of concern in either breast. Note Medical oncology Dr. Pak 03-30-[address] Calderon of 10-10-22 revealed patient was noted to be doing well with no evidence of recurrent cancer. Of importance is the fact of 2019 she underwent a CAT scan of the chest which revealed incomplete resolution of posterior basilar consolidation and/or atelectasis. The anterior upper lung consolidation. Could not exclude pneumonia or infectious etiology but suspect it may be related to her breast radiation treatment and correlation clinically was recommended. She had a follow up CT scan on June 21, 2020 which revealed improved pleural thickening right upper lobe and interstitial changes from radiation therapy to the right breast were noted. This is also being followed by radiation oncology. She is not complaining of any new lumps masses or nodules of concern in either breast. 04-11-23 The patient on 03-20-23 had a bilateral mammogram done, this revealed a new nodule in the right breast. Nothing of concern noted in the left breast. This led to a right breast diagnostic mammogram and ultrasound on 03-22-23. These led to a right breast ultrasound core biopsy on 04-03-23. The core biopsy was felt to be discordant from radiolsoy and needle localization and resection recommended. This was reviewed with Dr. Lee. Open resection in the operating room benign. She is continuing on her anastrozole. She is scheduled at this time for total knee replacement on the left side. He does not feel any new lumps masses or nodules of concern in either breast. She is status post right breast lumpectomy and sentinel node biopsy done on . This was for a stage I invasive ductal carcinoma. She was treated with radiation therapy which he completed on 10/15/2019. She is also on anastrozole. She did not receive any chemotherapy. 05-17-23 The patient was seen by Dr. Pak who was concerned about an are in the left breast. Additional x-ray and ultrasound were done, biopsy + IDC. She had a diagnostic mammogram performed on this was felt to be BIRADS 0 and was followed by an ultrasound on the same day. On the ultrasound a 1.5 cm area was identified and it was unable to determine if this was focal scar tissue were suspicious lesion. Therefore core biopsy was obtained. The core biopsy of this site was done on 10100831. This was G2 ER+KY+ HER-2/isa negative. She tolerated the biopsy without difficulty. MRI performed on : Enhancement in the right breast was identified which was felt to be related to fat necrosis or seromas she has had recent right breast surgery No lesions of concern noted in the left breast genetic testing (-) Patient was felt to be medically optimized for surgery by Dr. Gonzales 10-18-23 Breast lumpectomy and sentinel node biopsy on 08-12-2023 a grade 2 DCIS invasive ductal carcinoma 3 mm, DCIS, negative sentinel nodes, margins were negative for DCIS but close, this was ER/KY positive, HER2 negative. Underwent on 52 left breast lumpectomy, pathology revealed a 10 mm invasive ductal carcinoma nodes negative. Her margins were negative. She completed adjuvant radiation therapy. Note medical oncology 09-10-2023 reviewed there was no benefit from chemotherapy secondary to her Oncotype score and patient was put on exemestane Note radiation oncology 10-14-2023 reviewed the patient completed radiation therapy of the left breast on 09-17-2023 Underwent a right breast diagnostic mammogram on 10-16-2023 which was benign BI- RADS 2 Her left knee is scheduled to be replaced on October the 2023. She is not concerned about any new lumps masses or nodules in either breast. 04-24-24 69 year old with a diagnosis of bilateral breast cancers right 07-17-19 stage I left invasive ductal cancer 05-08-2023; stage I Right breast stage IA invasive ductal carcinoma, lumpectomy done July 2019, patient contralateral symmetry procedure of the left breast mammoplasty performed in June 2020 treated with radiation therapy and anestrazole daignosed with a left breast The core biopsy of this site was done on 10100831. This was G2 ER+KY+ HER-2/isa negative. She tolerated the biopsy without difficulty. MRI performed on : Enhancement in the right breast was identified which was felt to be related to fat necrosis or seromas she has had recent right breast surgery No lesions of concern noted in the left breast left breast cancer treated with Underwent on left breast lumpectomy, pathology revealed a 10 mm invasive ductal carcinoma nodes negative. Her margins were negative. She completed adjuvant radiation therapy. Note medical oncology 09-10-2023 reviewed there was no benefit from chemotherapy secondary to her Oncotype score and patient was put on exemestane Note radiation oncology 10-14-2023 reviewed the patient completed radiation therapy of the left breast on 09-17-2023 bilateral mammogram on 04-20-24 BIRAD 3 repeat left mammogram in 6 months personally interpreted She is complaining of some fullness in the UOQ of the left breast for about three weeks, it has not changed. Family history: Father: Esophageal cancer Hormonal history: Menarche: 13 G2 Ab2, no children, tubal ligation at 30 Menopause: 43 control pills: 15 years Hormones: None Surgical history: 1. Tubal ligation 2. Bunionectomy 3. Right breast lumpectomy and sentinel node biopsy, left breast biopsy 4. Left breast reduction mammoplasty 5. left knee arthroscopic surgery 6. left lumpectomy and SNB 7. left knee replacement Medical history: 1. Varicose veins 2. back pain Social history: Smoke: Negative Alcohol: Wine daily Drugs: Negative Review of systems: Constitutional: Negative HEENT: Negative Ears: Tinnitus Cardiovascular: Hypertension Respiratory: Negative GI: Negative : Status post tubal ligation Musculoskeletal: Arthritis; back pain Neurologic: Negative Psychiatric: Negative Objective - Vital Signs Vital signs: Vital Signs Temp 98.3 F 04/24/24 09:45 Pulse 66 04/24/24 09:45 Resp 16 04/24/24 09:45 BP 145/84 04/24/24 09:45 Pulse Ox 97 04/24/24 09:45 FiO2 Intake & Output 04/23/24 04/24/24 04/24/24 18:59 06:59 18:59 Weight 82.554 kg - Constitutional General appearance: Present: cooperative - EENT Eyes: Present: EOMI ENT: Present: hearing grossly normal - Neck Neck: Present: normal ROM - Respiratory Respiratory: bilateral: CTA - Cardiovascular Rhythm: regular Heart sounds: normal: S1, S2 - Integumentary Integumentary: Present: normal turgor - Musculoskeletal Musculoskeletal: Present: gait normal - Psychiatric Psychiatric: Present: A&O x's 3, appropriate affect, intact judgment & insight - Additional findings Additional findings: Breast Exam: BRA: 40C Inspection: bilateral post op changes, grade 2 ptosis bilateral Patient: Right breast: Postop changes, no dominant masses or nodules of concern on multi- positional exam, well healed scar recent biopsy, small seroma right breast upper outer aspect smaller as per patinet Right axilla: No adenopathy of concern Left breast: Post surgical changes, no dominate masses or nodules of concern; at the medial aspect of the axillary incision there is some slight nodularity which most likely represents scar tissue Left axilla: No adenopathy of concern Assessment and Plan Assessment: Impression: Patient status post right breast lumpectomy/radiation therapy/hormone therapy for stage IA invasive ductal carcinoma; she subsequently underwent a right breast open biopsy for discordant core biopsy which was benign left breast Lumpectomy sentinel node biopsy right breast mammogram 10-16-23 BIRAD2; bilateral mammogram 04-20-24 BIRAD 3 repeat left mammogram in 6 months, The axillary medial incision most likely representing scar tissue Plan: left breast mammogram in 6 months with examination at that time Obtain note from medical oncology Bilateral upper outer quadrant ultrasound of the breast the area of seroma in the right breast, in the area of increased nodularity in the left axillary incision at the medial aspect Patient to follow-up after bilateral ultrasounds performed The patient is continuing on exemestane Follow-up medical and radiation oncology Follow-up here sooner any questions or concerns Cc: Dr. Gonzales
== END ==
LOC: WWCWWP 08:58
PROVIDERS: ATTEND Surgery
DX: R92.8 Other abnormal and inconclusive findings on diagnostic imaging of breast (principal); C50.411 Malignant neoplasm of upper-outer quadrant of right female breast; C50.412 Malignant neoplasm of upper-outer quadrant of left female breast; N60.92 Unspecified benign mammary dysplasia of left breast; N64.89 Other specified disorders of breast; Z17.0 Estrogen receptor positive status [ER+]; Z92.3 Personal history of irradiation; Z48.817 Encounter for surgical aftercare following surgery on the skin and subcutaneous tissue; Z91.041 Radiographic dye allergy status; Z88.8 Allergy status to other drugs, medicaments and biological substances; Z87.891 Personal history of nicotine dependence

== ENCOUNTER → 2024-05-05 | Outpatient (CLI) | payer MEDICARE ==
--- NOTE | 2024-05-05 11:38 | USB ---
Reason for Exam: Clinical finding. Patient History: Menarche at age 12. Patient has no children. Postmenopausal. Breast cancer, right, age 64. Breast cancer, left, age 68. Breast cancer, left, age 68. Previous chest radiation therapy at age 64. Hormonal Contraceptives for 11 years from age 19 until age 30. 07/02/2023, Lumpectomy on the Left side. 07/02/2023, Malignant MG pre op needle loc LT on the left side. 05/08/2023, Malignant US biopsy breast VAD LT on the left side. 04/16/2023, Benign MG pre op needle loc RT on the right side. 04/03/2023, US biopsy breast VAD RT on the Right side. Excisional Biopsy on the Right side. 06/2020, Reduction on the Left side. 08/12/2019, Lumpectomy on the Right side. 08/12/2019, Malignant Core Biopsy on the right side. 08/12/2019, Malignant Core Biopsy on the left side. 08/27/2000, Benign Excisional Biopsy on the left side. 2019, Radiation Therapy on the right side. Technique: Method: Targeted. Prior Study Comparison: 05/08/2023 Left MG diagnostic mammo LT wo CAD., [facility]. 10/16/2023 Right MG 3D diag mammo w/cad RT, [facility]. 04/20/2024 Bilateral MG 3D diag mammo w/cad FLACO, [facility]. Findings: The upper section of the breast of the right breast, the lateral section of the breast of the left breast and the area of palpable concern of the left breast were scanned. Essentially stable seroma right breast at the site of prior lumpectomy measuring 3 x 2.3 cm. No solid mass is detected. At the left sided lumpectomy site which correlates to the 2:00 position is postoperative change and tiny seroma seen. Overall Assessment: Benign, BI-RAD 2 Management: Diagnostic Mammogram of both breasts in 1 year. A clinical breast exam by your physician is recommended on an annual basis and results should be correlated with mammographic findings. This exam should not preclude additional follow-up of suspicious palpable abnormalities. Results were given to the patient verbally at the time of exam. [facility], , 05/05/2024 11:25 AM. Electronically signed and approved by: Meet Barahona M.D. Radiologis
== END | disposition home or self-care (01) ==
LOC: RADUSWWP 10:55
PROVIDERS: ATTEND Surgery
DX: N63.10 Unspecified lump in the right breast, unspecified quadrant (principal); N63.20 Unspecified lump in the left breast, unspecified quadrant; Z85.3 Personal history of malignant neoplasm of breast; Z78.0 Asymptomatic menopausal state

== ENCOUNTER → 2024-05-22 | Outpatient (CLI) | payer MEDICARE ==
[2024-05-22 09:37] VITALS: BP 131/75; PULSE 70; RESP 17; TEMP 97.9
--- NOTE | 2024-05-22 10:25 | P.PN ---
Subjective Progress Note Date: 05/22/24 05-22-24 Principal diagnosis: right 07-17-19 stage I left invasive ductal cancer 05-08-2023; stage I, diagnosed after she had had left mammoplasty 201905-21-25 69 year old with a diagnosis of bilateral breast cancers right 07-17-19 stage I left invasive ductal cancer 05-08-2023; stage I Right breast stage IA invasive ductal carcinoma, lumpectomy done July 2019, patient contralateral symmetry procedure of the left breast mammoplasty performed in June 2020 treated with radiation therapy and anestrazole daignosed with a left breast The core biopsy of this site was done on 10100831. This was G2 ER+UT+ HER-2/isa negative. She tolerated the biopsy without difficulty. MRI performed on : Enhancement in the right breast was identified which was felt to be related to fat necrosis or seromas she has had recent right breast surgery No lesions of concern noted in the left breast left breast cancer treated with Underwent on left breast lumpectomy, pathology revealed a 10 mm invasive ductal carcinoma nodes negative. Her margins were negative. She completed adjuvant radiation therapy. Note medical oncology 09-10-2023 reviewed there was no benefit from chemotherapy secondary to her Oncotype score and patient was put on exemestane Note radiation oncology 10-14-2023 reviewed the patient completed radiation therapy of the left breast on 09-17-2023 bilateral mammogram on 04-20-24 BIRAD 3 repeat left mammogram in 6 months personally interpreted She was complaining of some fullness in the UOQ of the left breast for about three weeks prior to her last visit, therefore bilateral Ultrasound bilateral breast done on 05-05-24 BIRAD 2. This was personally reviewed. She presents today for discussion of ultrasound results, and risk management for breast cancer. Family history: Father: Esophageal cancer Hormonal history: Menarche: 13 G2 Ab2, no children, tubal ligation at 30 Menopause: 43 control pills: 15 years Hormones: None Surgical history: 1. Tubal ligation 2. Bunionectomy 3. Right breast lumpectomy and sentinel node biopsy, left breast biopsy 4. Left breast reduction mammoplasty 5. left knee arthroscopic surgery 6. left lumpectomy and SNB 7. left knee replacement Medical history: 1. Varicose veins 2. back pain Social history: Smoke: Negative Alcohol: Wine daily Drugs: Negative Review of systems: Constitutional: Negative HEENT: Negative Ears: Tinnitus Cardiovascular: Hypertension Respiratory: Negative GI: Negative : Status post tubal ligation Musculoskeletal: Arthritis; back pain Neurologic: Negative Psychiatric: Negative Objective - Vital Signs Vital signs: Vital Signs Temp 97.9 F 05/22/24 09:35 Pulse 70 05/22/24 09:35 Resp 17 05/22/24 09:35 BP 131/75 05/22/24 09:35 Pulse Ox 95 05/22/24 09:35 FiO2 Intake & Output 05/21/24 05/22/24 05/22/24 18:59 06:59 18:59 Weight 81.647 kg - Constitutional General appearance: Present: cooperative - Neck Neck: Present: normal ROM - Integumentary Integumentary: Present: normal turgor - Musculoskeletal Musculoskeletal: Present: gait normal - Psychiatric Psychiatric: Present: A&O x's 3, appropriate affect, intact judgment & insight - Additional findings Additional findings: Breast Exam: examination from last visit, deferred exam today BRA: 40C Inspection: bilateral post op changes, grade 2 ptosis bilateral Patient: Right breast: Postop changes, no dominant masses or nodules of concern on multi- positional exam, well healed scar recent biopsy, small seroma right breast upper outer aspect smaller as per patinet Right axilla: No adenopathy of concern Left breast: Post surgical changes, no dominate masses or nodules of concern; at the medial aspect of the axillary incision there is some slight nodularity which most likely represents scar tissue Left axilla: No adenopathy of concern Assessment and Plan Assessment: Impression: Patient status post right breast lumpectomy/radiation therapy/hormone therapy for stage IA invasive ductal carcinoma; she subsequently underwent a right breast open biopsy for discordant core biopsy which was benign left breast Lumpectomy sentinel node biopsy right breast mammogram 10-16-23 BIRAD2; bilateral mammogram 04-20-24 BIRAD 3 repeat left mammogram in 6 months, The axillary medial incision most likely representing scar tissue ultrasound bilateral BIRAD 2, 05-05-24 Plan: left breast mammogram in September 2024 with examination at that time, bilateral mammogram in March 2025 Obtain note from medical oncology The patient is continuing on exemestane Follow-up medical oncology Follow-up here sooner any questions or concerns 20 minutes spent on reviewing patient chart, personal review of ultrasound, and discussion with patient. Cc: Dr. Gonzales
== END ==
LOC: WWCWWP 08:55
PROVIDERS: ATTEND Surgery

== ENCOUNTER → 2024-10-16 | Outpatient (CLI) | payer MEDICARE ==
--- NOTE | 2024-10-16 10:31 | MM ---
Reason for Exam: Follow-up at short interval from prior study. Last screening mammogram was performed 6 month(s) ago. Patient History: Menarche at age 12. Patient has no children. Postmenopausal. Breast cancer, right, age 64. Breast cancer, left, age 68. Breast cancer, left, age 68. Previous chest radiation therapy at age 64. Hormonal Contraceptives for 11 years from age 19 until age 30. 07/02/2023, Lumpectomy on the Left side. 07/02/2023, Malignant MG pre op needle loc LT on the left side. 05/08/2023, Malignant US biopsy breast VAD LT on the left side. 04/16/2023, Benign MG pre op needle loc RT on the right side. 04/03/2023, US biopsy breast VAD RT on the Right side. Excisional Biopsy on the Right side. 06/2020, Reduction on the Left side. 08/12/2019, Lumpectomy on the Right side. 08/12/2019, Malignant Core Biopsy on the right side. 08/12/2019, Malignant Core Biopsy on the left side. 08/27/2000, Benign Excisional Biopsy on the left side. 2023, Radiation Therapy on the left side. 2019, Radiation Therapy on the right side. Prior Study Comparison: 05/08/2023 Left MG diagnostic mammo LT wo CAD., [facility]. 10/16/2023 Right MG 3D diag mammo w/cad RT, [facility]. 04/20/2024 Bilateral MG 3D diag mammo w/cad FLACO, [facility]. Tissue Density: Left: The breasts are heterogeneously dense, which may obscure small masses. Findings: Analyzed By CAD. Multifocal Areas of dystrophic calcification and distortion along with surgical change and distortion in the upper aspect left breast are all stable. Improved skin thickening is noted. No obvious new suspicious mass or worrisome group of microcalcifications in the left breast. Overall Assessment: Benign, BI-RAD 2 Management: Diagnostic Mammogram of both breasts in 6 months. Return to routine follow-up. Results were given to the patient verbally at the time of exam. Patient should continue monthly self-breast exams. A clinical breast exam by your physician is recommended on an annual basis. This exam should not preclude additional follow-up of suspicious palpable abnormalities. Note on Eliza scores and lifetime risk: 1. A Eliza score greater than 3% is considered moderate risk. If this is the case, consider specialist referral to assess eligibility for a risk reducing agent. 2. If overall lifetime risk for the development of breast cancer is 20% or higher, the patient may qualify for future screening with alternating mammogram and breast MRI. [facility], , 10/16/2024 10:28 AM. Electronically signed and approved by: Merlin James M.D.
== END | disposition home or self-care (01) ==
LOC: RADMAMWWP 09:40
PROVIDERS: ATTEND Surgery
DX: R92.322 Mammographic fibroglandular density, left breast (principal); Z85.3 Personal history of malignant neoplasm of breast; Z78.0 Asymptomatic menopausal state
CPT/HCPCS: 77061; 77065

== ENCOUNTER → 2024-11-04 | Outpatient (CLI) | payer MEDICARE ==
[2024-11-04 08:24] VITALS: BP 155/84; PULSE 65; RESP 16; TEMP 98.1
--- NOTE | 2024-11-04 08:55 | P.PN ---
Subjective Progress Note Date: 11/04/24 11-04-24 Principal diagnosis: right 07-17-19 stage I IDC left invasive ductal cancer 05-08-2023; stage I, diagnosed after she had had left mammoplasty 201911-04-24 69 year old with a diagnosis of bilateral breast cancers right 07-17-19 stage I left invasive ductal cancer 05-08-2023; stage I Right breast stage IA invasive ductal carcinoma, lumpectomy done July 2019, patient contralateral symmetry procedure of the left breast mammoplasty performed in June 2020 treated with radiation therapy and anestrazole diagnosed with a left breast 2022 The core biopsy of this site was done on 10100831. This was G2 ER+NH+ HER-2/isa negative. She tolerated the biopsy without difficulty. MRI performed on : Enhancement in the right breast was identified which was felt to be related to fat necrosis or seromas she has had recent right breast surgery No lesions of concern noted in the left breast left breast cancer treated with Underwent on left breast lumpectomy, pathology revealed a 10 mm invasive ductal carcinoma nodes negative. Her margins were negative. She completed adjuvant radiation therapy. Note medical oncology 09-10-2023 there was no benefit from chemotherapy secondary to her Oncotype score and patient was put on exemestane Note radiation oncology 10-14-2023 the patient completed radiation therapy of the left breast on 09-17-2023 bilateral mammogram on 04-20-24 BIRAD 3 repeat left mammogram in 6 months personally interpreted; this was done on 10-16-24 BIRAD 2 She was complaining of some fullness in the UOQ of the left breast for about three weeks prior to her last visit, therefore bilateral Ultrasound bilateral breast done on 05-05-24 BIRAD 2. This was personally reviewed and Family history: Father: Esophageal cancer Hormonal history: Menarche: 13 G2 Ab2, no children, tubal ligation at 30 Menopause: 43 control pills: 15 years Hormones: None Surgical history: 1. Tubal ligation 2. Bunionectomy 3. Right breast lumpectomy and sentinel node biopsy, left breast biopsy 4. Left breast reduction mammoplasty 5. left knee arthroscopic surgery 6. left lumpectomy and SNB 7. left knee replacement Medical history: 1. Varicose veins 2. back pain Social history: Smoke: Negative Alcohol: Wine daily Drugs: Negative Review of systems: Constitutional: Negative HEENT: Negative Ears: Tinnitus Cardiovascular: Hypertension Respiratory: Negative GI: Negative : Status post tubal ligation Musculoskeletal: Arthritis; back pain Neurologic: Negative Psychiatric: Negative Objective - Vital Signs Vital signs: Vital Signs Temp 98.1 F 11/04/24 08:21 Pulse 65 11/04/24 08:21 Resp 16 11/04/24 08:21 BP 155/84 11/04/24 08:21 Pulse Ox 96 11/04/24 08:21 FiO2 Intake & Output 11/03/24 11/04/24 11/04/24 18:59 06:59 18:59 Weight 79.379 kg - Constitutional General appearance: Present: cooperative - EENT Eyes: Present: EOMI ENT: Present: hearing grossly normal - Neck Neck: Present: normal ROM - Respiratory Respiratory: bilateral: CTA - Cardiovascular Rhythm: regular Heart sounds: normal: S1, S2 - Integumentary Integumentary: Present: normal turgor - Musculoskeletal Musculoskeletal: Present: gait normal - Psychiatric Psychiatric: Present: A&O x's 3, appropriate affect, intact judgment & insight - Additional findings Additional findings: Breast Exam: BRA: 40C Inspection: bilateral post op changes, grade 2 ptosis bilateral Patient: Right breast: Postop changes, no dominant masses or nodules of concern on multi- positional exam, well healed scar, small residual seroma upper outer quadrant area of the right breast Right axilla: No adenopathy of concern Left breast: Post surgical changes, no dominate masses or nodules of concern; at the medial aspect of the axillary incision there slight nodularity subsequently resolved no discrete dominant masses or nodules of concern Left axilla: No adenopathy of concern Assessment and Plan Assessment: Impression: Patient status post right breast lumpectomy/radiation therapy/hormone therapy for stage IA invasive ductal carcinoma; she subsequently underwent a right breast open biopsy for discordant core biopsy which was benign left breast Lumpectomy sentinel node biopsy right breast mammogram 10-16-23 BIRAD2; bilateral mammogram 04-20-24 BIRAD 3 repeat left mammogram in 6 months, done on 10-16-24 BIRAD 2 The axillary medial incision most likely representing scar tissue ultrasound bilateral BIRAD 2, 05-05-24 Plan: bilateral mammogram in March 2025, with appointment at that time Obtain note from medical oncology The patient is continuing on exemestane Follow-up medical oncology Follow-up here sooner any questions or concerns Cc: Dr. Gonzales
== END ==
LOC: WWCWWP 08:12
PROVIDERS: ATTEND Surgery
DX: Z12.31 Encounter for screening mammogram for malignant neoplasm of breast (principal); C50.912 Malignant neoplasm of unspecified site of left female breast; Z88.5 Allergy status to narcotic agent; Z91.048 Other nonmedicinal substance allergy status; Z87.891 Personal history of nicotine dependence